=== PATIENT | female | born 1930 | race Caucasian/White ===

== ENCOUNTER 2017-07-18 15:05 | Inpatient (IN) | payer OTHER, BC ==
[2017-07-18] MEDS ORDERED: DEXAMETHASONE SOD PHOSPHATE 10 MG/1 ML VIAL ONE (15:27)
[2017-07-18] MEDS ORDERED: ALBUTEROL SO4 2.5/IPRATROPIUM 0.5 INH SOL 3 ML VIAL.NEB. NEB ONE (15:27)
--- NOTE | 2017-07-18 15:46 | PDOC ---
History of Present Illness - History of Present Illness Initial Comments: 07/18/17 15:52 The patient is a 86 year old female, with a significant past medical history of CKD, COPD, hypertension, anemia, CHF, who presents to the emergency department via EMS with, progressively worsening shortness of breath for approx. one day. The patient states the shortness of breath was worse today so she decided to go her PCP Dr. Amaral office for evaluation. However, she reports Dr. Puente advised the patient to come to the ED for further evaluation of the shortness of breath and notified EMS. She denies recent fevers, chills, cough, headache or dizziness. She denies recent nausea, vomit, diarrhea or constipation. She denies recent dysuria, frequency, urgency or hematuria. She denies recent chest pain. Allergies: See nursing notes. Primary Care Physician: Dr. Puente <Oren Velazquez - Last Filed: 07/18/17 16:28> - General History Source: Patient, Family Exam Limitations: No Limitations <Dariusz Werner - Last Filed: 07/18/17 17:57> <Ana Varma - Last Filed: 07/18/17 20:03> - General Chief Complaint: Shortness of Breath Stated Complaint: DIFFICULTY BREATHING Time Seen by Provider: 07/18/17 15:29 Past History <Oren Velazquez - Last Filed: 07/18/17 16:28> - Past Medical History COPD: Yes GI Disorders: Yes (LG HIATAL HERNIA) HTN: Yes Hypercholesterolemia: Yes Psychiatric Problems: Yes (DEPRESSION) - Surgical History Abdominal Surgery: Yes - Immunization History Immunization Up to Date: Yes - Suicide/Smoking/Psychosocial Hx Smoking Status: No Smoking History: Former smoker Have you smoked in the past 12 months: No Number of Cigarettes Smoked Daily: 0 If you are a former smoker, when did you quit?: 30 years ago Cigars Per Day: 0 Information on smoking cessation initiated: No 'Breaking Loose' booklet given: 11/02/13 Hx Alcohol Use: No Drug/Substance Use Hx: No Substance Use Type: None Hx Substance Use Treatment: No <Dariusz Werner - Last Filed: 07/18/17 17:57> <Ana Varma - Last Filed: 07/18/17 20:03> - Past Medical History Allergies/Adverse Reactions: Allergies Allergy/AdvReac Type Severity Reaction Status Date / Time erythromycin base Allergy Verified 03/03/16 02:18 [Erythromycin Base] prednisone AdvReac Verified 03/03/16 02:18 accromycin AdvReac Mild makes pt. Uncoded 03/03/16 02:18 hyper Home Medications: Ambulatory Orders Unobtainable [Unobtainable] 07/18/17 Review of Systems - Review of Systems Comments:: 07/18/17 15:54 GENERAL/CONSTITUTIONAL: No fever or chills. No weakness. HEAD, EYES, EARS, NOSE AND THROAT: No change in vision. No ear pain or discharge. No sore throat. CARDIOVASCULAR: (+) Shortness of breath. No chest pain. RESPIRATORY: No cough, wheezing, or hemoptysis. GASTROINTESTINAL: No nausea, vomiting, diarrhea or constipation. GENITOURINARY: No dysuria, frequency, or change in urination. MUSCULOSKELETAL: No joint or muscle swelling or pain. No neck or back pain. SKIN: No rash NEUROLOGIC: No headache, vertigo, loss of consciousness, or change in strength/ sensation. ENDOCRINE: No increased thirst. No abnormal weight change. HEMATOLOGIC/LYMPHATIC: No anemia, easy bleeding, or history of blood clots. ALLERGIC/IMMUNOLOGIC: No hives or skin allergy. <Oren Velazquez - Last Filed: 07/18/17 16:28> *Physical Exam - Vital Signs Last Vital Signs Temp Pulse Resp BP Pulse Ox 98.1 F 70 37 H 228/87 100 07/18/17 15:24 07/18/17 15:24 07/18/17 15:24 07/18/17 15:24 07/18/17 15:24 - Physical Exam Comments: 07/18/17 15:55 GENERAL: Awake, alert, and fully oriented. HEAD: No signs of trauma EYES: PERRLA, EOMI, sclera anicteric, conjunctiva clear ENT: Auricles normal inspection, hearing grossly normal, nares patent, oropharynx clear without exudates. Moist mucosa NECK: Normal ROM, supple, no lymphadenopathy, JVD, or masses LUNGS: (+) Tachypneic. (+) Decreased breath sounds at the bases bilaterally. (+ ) Speaking in few words. HEART: Regular rate and rhythm, normal S1 and S2, no murmurs, rubs or gallops ABDOMEN: Soft, nontender, normoactive bowel sounds. No guarding, no rebound. No masses EXTREMITIES: (+) 2+ Pedal edema bilaterally. Normal range of motion. No clubbing or cyanosis. No cords, erythema, or tenderness NEUROLOGICAL: Cranial nerves II through XII grossly intact. Normal speech. SKIN: Warm, Dry, normal turgor, no rashes or lesions noted. <Oren Velazquez - Last Filed: 07/18/17 16:28> - Vital Signs Last Vital Signs Temp Pulse Resp BP Pulse Ox 98.1 F 70 37 H 228/87 100 07/18/17 15:24 07/18/17 15:24 07/18/17 15:24 07/18/17 15:24 07/18/17 15:24 <Dariusz Werner - Last Filed: 07/18/17 17:57> - Vital Signs Last Vital Signs Temp Pulse Resp BP Pulse Ox 98.1 F 86 26 H 146/79 100 07/18/17 15:24 07/18/17 18:42 07/18/17 18:42 07/18/17 18:42 07/18/17 18:42 <Ana Varma - Last Filed: 07/18/17 20:03> Heart Score/ECG Review #1 ECG reviewed & interpreted by me at: 17:25 07/18/17 17:32 NSR 89, no std/eddie, normal axis, normal intervals, QTC 467 msec <Dariusz Werner - Last Filed: 07/18/17 17:57> ED Treatment Course - LABORATORY CBC & Chemistry Diagram: 07/18/17 15:51 07/18/17 15:51 - RADIOLOGY Radiograph Interpretation: 07/18/17 16:28 EXAM#: TYPE/EXAM: RESULT: [id number] RAD/CHEST X-RAY PORTABLE* HISTORY PROVIDED: Shortness of breath. A single frontal portable projection of the chest at 3:58 PM is submitted. The heart size is enlarged. The lung mcdowell are free of pulmonary infiltrates or pleural effusions. There are increased interstitial markings diffusely consistent with chronic lung disease. There is tortuosity and calcification of the thoracic aorta and degenerative arthritis of the thoracic spine. IMPRESSION: Cardiomegaly and chronic lung disease with no acute pathology or significant change since 2015. Reported By: Ike Horner MD <Oren Velazquez - Last Filed: 07/18/17 16:28> - LABORATORY CBC & Chemistry Diagram: 07/18/17 15:51 07/18/17 15:51 - RADIOLOGY Radiology Studies Ordered: Category Date Time Status CHEST X-RAY PORTABLE* [RAD] Stat Radiology 07/18/17 15:37 Ordered <Dariusz Werner - Last Filed: 07/18/17 17:57> - LABORATORY CBC & Chemistry Diagram: 07/18/17 15:51 07/18/17 15:51 - ADDITIONAL ORDERS Additional order review: Laboratory Results 07/18/17 07/18/17 07/18/17 17:40 17:19 16:09 PT with INR 11.10 INR 0.98 PTT (Actin FS) 25.6 L D Anticoagulation Therapy No Result Required. Puncture Site Right radial ABG pH 7.59 H D ABG pCO2 at Pt Temp 20.7 L D ABG pO2 at Pt Temp 244.0 H* D ABG HCO3 20.1 L ABG O2 Sat (Measured) 100.0 H* ABG O2 Content 11.3 L ABG Base Excess -0.9 Tha Test Positive Carboxyhemoglobin 1.9 Methemoglobin 1.0 O2 Delivery Device No Result Required. Oxygen Flow Rate 50 Vent Mode S/t Vent Rate No Result Required. Mechanical Rate 12/5 Pressure Support Vent No Result Required. Sodium Potassium Chloride Carbon Dioxide Anion Gap BUN Creatinine Creat Clearance w eGFR Random Glucose Calcium Phosphorus Magnesium Total Bilirubin AST ALT Alkaline Phosphatase Creatine Kinase Troponin I B-Natriuretic Peptide Total Protein Albumin Urine Color Ltyellow Urine Appearance Slcloudy Urine pH 7.0 D Ur Specific [place] 1.006 Urine Protein Negative Urine Glucose (UA) Negative Urine Ketones Negative Urine Blood 2+ H Urine Nitrite Negative Urine Bilirubin Negative Urine Urobilinogen Negative Ur Leukocyte Esterase 1+ H Urine WBC (Auto) 10 Urine RBC (Auto) 1 Ur Epithelial Cells Rare Urine Bacteria Rare Urine Yeast Rare 07/18/17 07/18/17 15:51 15:51 PT with INR 10.60 INR 0.94 PTT (Actin FS) Cancelled Anticoagulation Therapy Puncture Site ABG pH ABG pCO2 at Pt Temp ABG pO2 at Pt Temp ABG HCO3 ABG O2 Sat (Measured) ABG O2 Content ABG Base Excess Tha Test Carboxyhemoglobin Methemoglobin O2 Delivery Device Oxygen Flow Rate Vent Mode Vent Rate Mechanical Rate Pressure Support Vent Sodium 141 Potassium 4.3 Chloride 108 H Carbon Dioxide 23 Anion Gap 10 BUN 26 H Creatinine 1.3 H Creat Clearance w eGFR 38.84 Random Glucose 85 Calcium 8.5 Phosphorus 3.0 Magnesium 2.3 Total Bilirubin 0.4 D AST 16 ALT 19 Alkaline Phosphatase 86 Creatine Kinase 85 Troponin I < 0.02 B-Natriuretic Peptide 725.24 H Total Protein 6.5 Albumin 3.4 Urine Color Urine Appearance Urine pH Ur Specific [place] Urine Protein Urine Glucose (UA) Urine Ketones Urine Blood Urine Nitrite Urine Bilirubin Urine Urobilinogen Ur Leukocyte Esterase Urine WBC (Auto) Urine RBC (Auto) Ur Epithelial Cells Urine Bacteria Urine Yeast 07/18/17 15:51 RBC 3.09 L MCV 84.1 MCHC 32.3 RDW 15.5 MPV 8.4 Neutrophils % 86.0 H D Lymphocytes % 7.0 L D Monocytes % 3.9 Eosinophils % 2.6 Basophils % 0.5 - Medications Given in the ED: ED Medications Discontinued Medications Generic Name Dose Route Start Last Admin Trade Name Syd PRN Reason Stop Dose Admin Acetaminophen 1,000 mg 07/18/17 18:17 07/18/17 19:35 Ofirmev Injection - IVPB 07/18/17 18:18 1,000 mg ONCE ONE Administration Furosemide 40 mg 07/18/17 16:16 07/18/17 16:32 Lasix Injection - IVPB 07/18/17 16:17 40 mg ONCE ONE Administration Furosemide 40 mg 07/18/17 18:11 07/18/17 19:09 Lasix Injection - IVPB 07/18/17 18:12 Not Given ONCE ONE Furosemide 20 mg 07/18/17 18:18 07/18/17 18:48 Lasix Injection - IVPB 07/18/17 18:19 20 mg ONCE ONE Administration Ceftriaxone Sodium 1 gm/ 50 mls @ 100 mls/hr 07/18/17 17:10 07/18/17 18:51 Dextrose IVPB 07/18/17 17:39 100 mls/hr ONCE ONE Administration Morphine Sulfate 2 mg 07/18/17 19:07 07/18/17 19:35 Morphine Injection - IVPUSH 07/18/17 19:08 2 mg ONCE ONE Administration <Ana Varma - Last Filed: 07/18/17 20:03> Medical Decision Making - Critical Care Time Total Critical Care Time (minutes): 45 Critical Care Statement: The care of this patient involved high complexity decision making to prevent further life threatening deterioration of the patient 's condition and/or to evaluate & treat vital organ system(s) failure or risk of failure. - Medical Decision Making 07/18/17 15:41 A portion of this note was documented by scribe services under my direction. I have reviewed the details of the note, within reason, and agree with the documentation with the following case summary and management plan written by me. Patient treated in the ED. Patient arrives by ambulance to the emergency department. Nursing notes are reviewed and incorporated into the medical decision-making. Vital signs reviewed. Peripheral IV access obtained by the nurse, laboratory studies are drawn and sent, reviewed and interpreted by myself. Vital Signs Temp Pulse Resp BP Pulse Ox 98.1 F 70 37 H 228/87 100 07/18/17 15:24 07/18/17 15:24 07/18/17 15:24 07/18/17 15:24 07/18/17 15:24 86-year-old with past medical history of hypertension, hyperlipidemia, COPD, CHF on 20 mg of Lasix every other day presents with shortness of breath. According to the patient, the patient was having increased short of breath which was worse today. Patient denies any fevers or coughing or chest pain but reported that she's beginning a few sentences. Patient went to her doctor's office, Dr. Puente who called EMS for the patient. EMS had given the patient two combivents and 10 mg of dexamethasone. Patient was brought to the ED and seen by the ED 18. Patient is hypertensive and speaking in short sentences. Respiratory was paged for BiPAP. I suspect patient likely has CHF exacerbation and potentially COPD as well. Chest x-ray, labs, likely needs Lasix as well. Needs admission to the hospital. 07/18/17 17:57 CBC, BMP 07/18/17 15:51 07/18/17 15:51 CMP Sodium 141 mmol/L (136-145) 07/18/17 15:51 Potassium 4.3 mmol/L (3.5-5.1) 07/18/17 15:51 Chloride 108 mmol/L (98-107) H 07/18/17 15:51 Carbon Dioxide 23 mmol/L (21-32) 07/18/17 15:51 Anion Gap 10 (8-16) 07/18/17 15:51 BUN 26 mg/dL (7-18) H 07/18/17 15:51 Creatinine 1.3 mg/dL (0.55-1.02) H 07/18/17 15:51 Creat Clearance w eGFR 38.84 (>60) 07/18/17 15:51 Random Glucose 85 mg/dL (74-106) 07/18/17 15:51 Calcium 8.5 mg/dL (8.5-10.1) 07/18/17 15:51 Phosphorus 3.0 mg/dL (2.5-4.9) 07/18/17 15:51 Magnesium 2.3 mg/dL (1.8-2.4) 07/18/17 15:51 Total Bilirubin 0.4 mg/dL (0.2-1.0) D 07/18/17 15:51 AST 16 U/L (15-37) 07/18/17 15:51 ALT 19 U/L (12-78) 07/18/17 15:51 Alkaline Phosphatase 86 U/L (45-117) 07/18/17 15:51 Creatine Kinase 85 IU/L (26-192) 07/18/17 15:51 Troponin I < 0.02 ng/ml (0.00-0.05) 07/18/17 15:51 B-Natriuretic Peptide 725.24 pg/ml (5-450) H 07/18/17 15:51 Total Protein 6.5 g/dl (6.4-8.2) 07/18/17 15:51 Albumin 3.4 g/dl (3.4-5.0) 07/18/17 15:51 Urine Test Results Urine Color Ltyellow 07/18/17 16:09 Urine Appearance Slcloudy 07/18/17 16:09 Urine pH 7.0 (5.0-8.0) D 07/18/17 16:09 Ur Specific [place] 1.006 (1.001-1.035) 07/18/17 16:09 Urine Protein Negative (NEGATIVE) 07/18/17 16:09 Urine Glucose (UA) Negative (NEGATIVE) 07/18/17 16:09 Urine Ketones Negative (NEGATIVE) 07/18/17 16:09 Urine Blood 2+ (NEGATIVE) H 07/18/17 16:09 Urine Nitrite Negative (NEGATIVE) 07/18/17 16:09 Urine Bilirubin Negative (NEGATIVE) 07/18/17 16:09 Ur Leukocyte Esterase 1+ (NEGATIVE) H 07/18/17 16:09 Ur Epithelial Cells Rare /HPF (FEW) 07/18/17 16:09 Urine Bacteria Rare /hpf (NONE SEEN) 07/18/17 16:09 Labs reviewed. BNP elevated 725. Chest xray cardiomegaly but no acute findings. UA positive 1+ leuk. Treated with ceftriaxone. Pt placed on BiPap. Nitroglycerin drip ordered, and with BP improved, pt's symptoms improved. However, unable to wean from BiPap at the moment. Given that the patient is requiring the nitro drip and BiPap, patient will need to be admitted to ICU. Case discussed with Dr. Burrell who accepts patient to the ICU. Page placed out to DR. Puente, who requests DR. Nguyen. DR. Nguyen's service requests hospitalist admission. Will admit to [facility] hospitalist. Admission diagnosis: SOB, CHF <Dariusz Werner - Last Filed: 07/18/17 17:57> *DC/Admit/Observation/Transfer - Attestations Scribe Attestion: 07/18/17 15:58 Documentation prepared by Oren Velazquez, acting as ophthalmic medical technologist for Dariusz Werner MD. <Oren Velazquez - Last Filed: 07/18/17 16:28> - Discharge Dispostion Admit: Yes <Dariusz Werner - Last Filed: 07/18/17 17:57> <Ana Varma - Last Filed: 07/18/17 20:03> Diagnosis at time of Disposition: SOB (shortness of breath) CHF (congestive heart failure) Qualifiers: Heart failure type: unspecified Heart failure chronicity: acute Qualified Code( s): I50.9 - Heart failure, unspecified - Discharge Dispostion Condition at time of disposition: Stable
[2017-07-18 16:02] LABS: BASO % 0.5 % (0-2.0); EOS % 2.6 % (0-4.5); HEMOGLOBIN 8.4 GM/dL (10.7-15.3); MCH 27.1 pg (25.7-33.7); MCHC 32.3 g/dl (32.0-36.0); MEAN CELL VOLUME 84.1 fl (80-96); MEAN PLT VOLUME 8.4 fl (7.5-11.1); MONO % 3.9 % (3.8-10.2); PLATELET COUNT 408 K/MM3 (134-434); RBC 3.09 M/mm3 (3.60-5.2); RDW 15.5 % (11.6-15.6); WHITE BLOOD COUNT 8.7 K/mm3 (4.0-10.0)
[2017-07-18] MEDS ORDERED: FUROSEMIDE 100 MG/10 ML INJECTABLE VIAL IVPB ONE ×3 (16:16→18:18)
[2017-07-18] MEDS ORDERED: FUROSEMIDE 40 MG/4 ML INJECTABLE VIAL ONE (16:28)
[2017-07-18 16:31] LABS: URINE APPEARANCE SLCLOUDY; URINE BILIRUBIN NEGATIVE (NEGATIVE); URINE BLOOD 2+ (NEGATIVE); URINE COLOR LTYELLOW; URINE GLUCOSE (UA) NEGATIVE (NEGATIVE); URINE KETONE NEGATIVE (NEGATIVE); URINE NITRITE NEGATIVE (NEGATIVE); URINE PROTEIN NEGATIVE (NEGATIVE); URINE UROBILINOGEN NEGATIVE mg/dL (0.2-1.0)
[2017-07-18] MEDS ORDERED: NITROGLYCERIN 25MG/D5W 250ML 25 MG/250 ML ML IVPB ONE (16:32)
[2017-07-18 16:36] LABS: INR 0.94 (0.82-1.09); PROTHROMBIN TIME (PATIENT) 10.6 SEC (9.98-11.88)
[2017-07-18 16:40] LABS: URINE LEUK ESTERASE 1+ (NEGATIVE)
[2017-07-18 16:41] LABS: EPI CELLS RARE /HPF (FEW); URINE BACTERIA RARE /hpf (NONE SEEN); YEAST RARE
[2017-07-18 16:42] LABS: ALBUMIN 3.4 g/dl (3.4-5.0); ANION GAP 10 (8-16); BILIRUBIN,TOTAL 0.4 mg/dL (0.2-1.0); BLOOD UREA NITROGEN 26 mg/dL (7-18); CALCIUM 8.5 mg/dL (8.5-10.1); CHLORIDE 108 mmol/L (98-107); CO2 23 mmol/L (21-32); CREATININE 1.3 mg/dL (0.55-1.02); GLUCOSE,RANDOM 85 mg/dL (74-106); MAGNESIUM 2.3 mg/dL (1.8-2.4); POTASSIUM 4.3 mmol/L (3.5-5.1); SGOT/AST 16 U/L (15-37); SODIUM 141 mmol/L (136-145); TOT PROT 6.5 g/dl (6.4-8.2)
[2017-07-18] MEDS: NITROGLYCERIN 25MG/D5W 250ML 25 MG/250 ML ML IVPB SCH (16:42)
[2017-07-18 17:06] LABS: ALK PHOS 86 U/L (45-117); N-TERMINAL BNP 725.24 pg/ml (5-450); SGPT/ALT 19 U/L (12-78)
[2017-07-18] MEDS ORDERED: CEFTRIAXONE 1 GM in DEXTROSE 5%-WATER - 50 ML IVPB ONE (17:10)
[2017-07-18 17:30] LABS: ARTERIAL BLOOD GAS BASE EXCESS -0.9 meq/l (-2-2); ARTERIAL BLOOD GAS PCO2 20.7 mmHg (35-45); ARTERIAL BLOOD GAS pH 7.59 (7.35-7.45)
[2017-07-18 17:31] LABS: ALLENS TEST POSITIVE; CARBOXYHEMOGLOBIN 1.9 gm% (0.5-2.0)
[2017-07-18 18:13] LABS: INR 0.98 (0.82-1.09); PROTHROMBIN TIME (PATIENT) 11.1 SEC (9.98-11.88)
[2017-07-18 18:16] LABS: ACTIVATED PTT 25.6 SECONDS (26.9-34.4)
[2017-07-18] MEDS ORDERED: ACETAMINOPHEN 1000 MG/100 ML VIAL (NON FORMULARY) IVPB ONE (18:17)
--- NOTE | 2017-07-18 18:24 | HP ---
Admitting History and Physical - Primary Care Physician PCP: Jesus Puente - Admission Chief Complaint: sob History of Present Illness: HPI This is a 86 year old with pmhx of CKD, COPD, HTN, Anemia, CHF who presented ED with worsening shortness of breath over 1 days. She was sent in from her PCP office at his request for sob and EMS picked her up. In the ED she received 40mg IV lasix, levine placed, nitro gtt and placed on Bipap. Per ED note, she denies fever, chills, cough, PAGAN, dizziness, n/v. She is complaining of hunger. History Source: Patient, Family Member, Medical Record Limitations to Obtaining History: No Limitations - Past Medical History Cardiovascular: Yes: AFIB (paroxysmal ), CHF, HTN, Hyperlipdemia Pulmonary: Yes: COPD Gastrointestinal: Yes: Hiatal Hernia Renal/: Yes: Renal Failure, Renal Inusuff, Other (benign renal mass) Heme/Onc: Yes: Anemia Psych: Yes: Anxiety, Depression - Smoking History Smoking history: Former smoker Have you smoked in the past 12 months: No Aproximately how many cigarettes per day: 0 If you are a former smoker, when did you quit?: 30 years ago - Alcohol/Substance Use Hx Alcohol Use: No History of Substance Use: reports: None - Social History Usual Living Arrangement: Yes: With Child History of Recent Travel: No Home Medications - Allergies Allergies/Adverse Reactions: Allergies Allergy/AdvReac Type Severity Reaction Status Date / Time erythromycin base Allergy Verified 03/03/16 02:18 [Erythromycin Base] prednisone AdvReac Verified 03/03/16 02:18 accromycin AdvReac Mild makes pt. Uncoded 03/03/16 02:18 hyper - Home Medications Home Medications: Ambulatory Orders Unobtainable [Unobtainable] 07/18/17 Review of Systems - Review of Systems Constitutional: reports: No Symptoms Eyes: reports: No Symptoms HENT: reports: No Symptoms Neck: reports: No Symptoms Cardiovascular: reports: No Symptoms Respiratory: reports: SOB, SOB on Exertion Gastrointestinal: reports: No Symptoms Genitourinary: reports: No Symptoms Musculoskeletal: reports: No Symptoms Integumentary: reports: No Symptoms Neurological: reports: No Symptoms Endocrine: reports: No Symptoms Hematology/Lymphatic: reports: No Symptoms Psychiatric: reports: No Symptoms Physical Examination Vital Signs: Vital Signs Temperature 98.1 F 07/18/17 15:24 Pulse Rate 80 07/18/17 18:13 Respiratory Rate 24 07/18/17 18:13 Blood Pressure 140/78 07/18/17 18:13 O2 Sat by Pulse Oximetry (%) 99 07/18/17 18:13 Constitutional: Yes: Well Nourished Eyes: Yes: Conjunctiva Clear HENT: Yes: Atraumatic Neck: Yes: Supple Cardiovascular: Yes: Tachycardia, S1, S2 Respiratory: Yes: On BiPap, Tachypnea Gastrointestinal: Yes: Normal Bowel Sounds, Soft Renal/: Yes: Levine Present Musculoskeletal: Yes: WNL Edema: Yes Edema: LLE: 1+, RLE: 1+ Peripheral Pulses WNL: Yes Integumentary: Yes: WNL Neurological: Yes: Alert, Oriented, Cran Nerves II-XII Intact Psychiatric: Yes: Alert, Oriented Labs: CBC, BMP 07/18/17 15:51 07/18/17 15:51 Imaging - Results Chest X-ray: Report Reviewed, Image Reviewed (no pleural effusion, infiltrate, cxr c/w interstitial lung markings- chronic) Problem List - Problems (1) CHF (congestive heart failure) Code(s): I50.9 - HEART FAILURE, UNSPECIFIED Qualifiers: Heart failure type: unspecified Heart failure chronicity: acute Qualified Code(s): I50.9 - Heart failure, unspecified (2) SOB (shortness of breath) Code(s): R06.02 - SHORTNESS OF BREATH (3) Acute on chronic renal failure Code(s): N17.9 - ACUTE KIDNEY FAILURE, UNSPECIFIED; N18.9 - CHRONIC KIDNEY DISEASE, UNSPECIFIED (4) COPD (chronic obstructive pulmonary disease) Code(s): J44.9 - CHRONIC OBSTRUCTIVE PULMONARY DISEASE, UNSPECIFIED (5) HTN (hypertension) Code(s): I10 - ESSENTIAL (PRIMARY) HYPERTENSION Assessment/Plan Assessment: 86 year old female admitted with worsening sob Plan: 1. Acute hypoxic respiratory failure/Acute COPD exacerbation - Continue bipap - Continue nitro gtt - Lasix 40mg IV given in ED, additional 20mg IV now, caution pt having RLE cramping - ICU admission, monitor for intubation 2. Acute CHF, diastolic - Dose lasix as needed daily, home dose 20mg - Pt with RLE cramping after 40mg IV lasix - Previous echo shows low normal LVEF - BNP low here 3. HTN - Maintain nitro gtt for now - To confirm pt med list, pt says its on her person 4. RENITA - Cr appears around baseline - Hold fluids 5. UTI - Urine cx pending - Continue ceftriaxone 6. DVT - Lovenox sq Visit type - Emergency Visit Emergency Visit: Yes Care time: The patient presented to the Emergency Department on the above date and was hospitalized for further evaluation of their emergent condition. - New Patient This patient is new to me today: Yes Date on this admission: 07/18/17 - Critical Care Critical Care patient: No Hospitalist Screening - Colonoscopy Questionnaire Colonoscopy Questionnaire: Colonoscopy Questionnaire - Patient: 50 - 75 years old and never had a screening colonoscopy: Unknown History of colon or rectal polyps, or CA: Unknown History of IBD, Crohn's disease or UC: Unknown History of abdominal radiation therapy as a child: Unknown - Relative: 1 with colon or rectal CA, or polyps at age 60 or younger: Unknown Colon or rectal CA diagnosed at age 45 or younger: Unknown Multiple relatives with colon or rectal CA: Unknown - Outcome: Screening Result: Negative Screen
[2017-07-18] MEDS ORDERED: ACETAMINOPHEN 325 MG TABLET (FP) PO PRN (18:45)
[2017-07-18] MEDS ORDERED: morphine CARPU-JECT 2 MG/1 ML DISP.SYRIN IVPUSH ONE (19:07)
[2017-07-18] MEDS ORDERED: MORPHINE SULFATE 10 MG/1 ML *VIAL ONE (19:27)
[2017-07-18] MEDS ORDERED: CALCIUM GLUCONATE 10% - 1,000 MG/10 ML VIAL IVPB ONE ×2 (21:52→23:45)
--- NOTE | 2017-07-18 22:21 | CONSULT ---
Consult Consult Specialty:: Pulm/CCM Reason for Consultation:: Acute CHF exacerbation - History of Present Illness Chief Complaint: BLE cramping History of Present Illness: 86yow with PMHx HTN, CHF, HLD, COPD, CKD, Anemia who presented to PCP Dr Puente with c/o worsening SOB over about 2 days. PCP contacted EMS for transport to ED. She was initially treated for COPD exacerbation with decadron and nebs. In ED T-98.1, HR 70, RR 37, BP 228/87. C/f flash pulmonary edema. Started on Nitro drip, given Lasix 60mg total, placed on BiPAP and started empirically on Ceftriaxone. ABG on 50%, / 7.59, 30, 220. Labs notable for WBC 8.7, H/H 8.4/ 26, BUN/creat 26/1.3, BNP 725, Trop <0.02. CXR notable for bilat diffuse interstitial markings c/w chronic lung disease, no effusion. She denied cough, CP, fever, n/v/d, headache, vision changes. With Nitric drip BP down to 170-140' s/70's. She was transferred to ICU for further management. In ICU rec'd A+O x3, and c/o severe BLE cramping. HR 70 BP 144/70 on Nitric drip at 30mcg/min. O2 sat 100% on BiPAP 50%, 12/5. Ca gluc 1G given with relief of leg cramping. Able to wean off NIVV to NCO2 5L. Pt states that she is having difficulty remembering to take her meds and is working on getting help from her daughter to use a pillbox. - History Source History Provided By: Patient, Medical Record - Past Medical History Cardio/Vascular: Yes: AFIB (paroxysmal ), CHF, HTN, Hyperlipdemia Pulmonary: Yes: COPD Gastrointestinal: Yes: Hiatal Hernia Renal/: Yes: Renal Failure, Renal Inusuff, Other (benign renal mass) Psych: Yes: Anxiety, Depression - Alcohol/Substance Use Hx Alcohol Use: No History of Substance Use: reports: None - Smoking History Smoking history: Former smoker Have you smoked in the past 12 months: No Aproximately how many cigarettes per day: 0 If you are a former smoker, when did you quit?: 30 years ago - Social History History of Recent Travel: No Home Medications - Allergies Allergies/Adverse Reactions: Allergies Allergy/AdvReac Type Severity Reaction Status Date / Time erythromycin base Allergy Verified 03/03/16 02:18 [Erythromycin Base] prednisone AdvReac Verified 03/03/16 02:18 accromycin AdvReac Mild makes pt. Uncoded 03/03/16 02:18 hyper - Home Medications Home Medications: Ambulatory Orders Unobtainable [Unobtainable] 07/18/17 Family Disease History - Family Disease History Family History: Unremarkable Review of Systems - Review of Systems Constitutional: reports: No Symptoms Eyes: reports: No Symptoms HENT: reports: No Symptoms Neck: reports: No Symptoms Cardiovascular: reports: Shortness of Breath Respiratory: reports: SOB Gastrointestinal: reports: Constipation Genitourinary: reports: No Symptoms Musculoskeletal: reports: No Symptoms, Other (BLE edema) Integumentary: reports: No Symptoms Neurological: reports: No Symptoms Endocrine: reports: No Symptoms Hematology/Lymphatic: reports: No Symptoms Psychiatric: reports: No Symptoms Physical Exam Vital Signs: Vital Signs Temperature 98.1 F 07/18/17 15:24 Pulse Rate 76 07/18/17 21:03 Respiratory Rate 26 H 07/18/17 18:42 Blood Pressure 146/79 07/18/17 18:42 O2 Sat by Pulse Oximetry (%) 100 07/18/17 21:03 Constitutional: Yes: Well Nourished, No Distress, Anxious Eyes: Yes: WNL HENT: Yes: Atraumatic, Normocephalic Neck: Yes: Trachea Midline Cardiovascular: Yes: Regular Rate and Rhythm, S1, S2 Respiratory: Yes: CTA Bilaterally, On BiPap, Tachypnea Gastrointestinal: Yes: Normal Bowel Sounds, Soft Renal/: Yes: Stroud Present Musculoskeletal: Yes: WNL Extremities: Yes: WNL Edema: No Peripheral Pulses WNL: Yes Neurological: Yes: Alert, Oriented ...Motor Strength: WNL Psychiatric: Yes: Alert, Oriented Labs: CBC, BMP 07/18/17 15:51 CBC,CMP WBC 8.7 K/mm3 (4.0-10.0) D 07/18/17 15:51 RBC 3.09 M/mm3 (3.60-5.2) L 07/18/17 15:51 Hgb 8.4 GM/dL (10.7-15.3) L 07/18/17 15:51 Hct 26.0 % (32.4-45.2) L 07/18/17 15:51 MCV 84.1 fl (80-96) 07/18/17 15:51 MCH 27.1 pg (25.7-33.7) 07/18/17 15:51 MCHC 32.3 g/dl (32.0-36.0) 07/18/17 15:51 RDW 15.5 % (11.6-15.6) 07/18/17 15:51 Plt Count 408 K/MM3 (134-434) D 07/18/17 15:51 MPV 8.4 fl (7.5-11.1) 07/18/17 15:51 Neutrophils % 86.0 % (42.8-82.8) H D 07/18/17 15:51 Lymphocytes % 7.0 % (8-40) L D 07/18/17 15:51 Monocytes % 3.9 % (3.8-10.2) 07/18/17 15:51 Eosinophils % 2.6 % (0-4.5) 07/18/17 15:51 Basophils % 0.5 % (0-2.0) 07/18/17 15:51 Sodium 140 mmol/L (136-145) 07/18/17 21:50 Potassium 4.0 mmol/L (3.5-5.1) 07/18/17 21:50 Chloride 106 mmol/L (98-107) 07/18/17 21:50 Carbon Dioxide 20 mmol/L (21-32) L 07/18/17 21:50 Anion Gap 14 (8-16) 07/18/17 21:50 BUN 29 mg/dL (7-18) H 07/18/17 21:50 Creatinine 1.6 mg/dL (0.55-1.02) H 07/18/17 21:50 Creat Clearance w eGFR 30.56 (>60) 07/18/17 21:50 Random Glucose 148 mg/dL (74-106) H 07/18/17 21:50 Calcium 8.5 mg/dL (8.5-10.1) 07/18/17 21:50 Phosphorus 3.0 mg/dL (2.5-4.9) 07/18/17 15:51 Magnesium 2.3 mg/dL (1.8-2.4) 07/18/17 15:51 Total Bilirubin 0.3 mg/dL (0.2-1.0) D 07/18/17 21:50 AST 14 U/L (15-37) L 07/18/17 21:50 ALT 19 U/L (12-78) 07/18/17 21:50 Alkaline Phosphatase 88 U/L (45-117) 07/18/17 21:50 Creatine Kinase 85 IU/L (26-192) 07/18/17 15:51 Troponin I < 0.02 ng/ml (0.00-0.05) 07/18/17 15:51 B-Natriuretic Peptide 725.24 pg/ml (5-450) H 07/18/17 15:51 Total Protein 6.6 g/dl (6.4-8.2) 07/18/17 21:50 Albumin 3.3 g/dl (3.4-5.0) L 07/18/17 21:50 ABG Results ABG pH 7.59 (7.35-7.45) H D 07/18/17 17:19 ABG pCO2 at Pt Temp 20.7 mmHg (35-45) L D 07/18/17 17:19 ABG pO2 at Pt Temp 244.0 mmHg (68-100) H* D 07/18/17 17:19 ABG HCO3 20.1 meq/L (22-26) L 07/18/17 17:19 ABG O2 Sat (Measured) 100.0 % (90-98.9) H* 07/18/17 17:19 ABG O2 Content 11.3 % vol (15-22) L 07/18/17 17:19 ABG Base Excess -0.9 meq/l (-2-2) 07/18/17 17:19 Active Medications Acetaminophen (Tylenol -) 650 mg PO Q6H PRN PRN Reason: PAIN LEVEL 4 - 6 Chlorhexidine Gluconate (Hibiclens For Decolonization -) 1 applic TP HS NICOLE Enoxaparin Sodium (Lovenox -) 40 mg SQ DAILY NICO[facility] Nitroglycerin/Dextrose (Nitroglycerin 25mg/D5w 250ml) 25 mg in 250 mls @ 60 mls /hr IVPB TITR NICOLE PRN Reason: 100 MCG/MIN Last Titration: 07/18/17 17:28 Dose: 25 mcg/min, 15 mls/hr CEFTRIAXONE 1 G/50 ML PREMIX (Ceftriaxone 1 Gm-D5w Bag) 50 mls @ 100 mls/hr IVPB DAILY NICOLE Mupirocin (Bactroban Ointment (For Decolonization) -) 1 applic NS BID NICOLE Stop: 07/23/17 21:59 Microbiology Blood 3 p Urine 3 p Imaging - Results Chest X-ray: Report Reviewed Problem List - Problems (1) CHF (congestive heart failure) Code(s): I50.9 - HEART FAILURE, UNSPECIFIED Qualifiers: Heart failure type: unspecified Heart failure chronicity: acute Qualified Code(s): I50.9 - Heart failure, unspecified (2) SOB (shortness of breath) Code(s): R06.02 - SHORTNESS OF BREATH (3) Acute on chronic renal failure Code(s): N17.9 - ACUTE KIDNEY FAILURE, UNSPECIFIED; N18.9 - CHRONIC KIDNEY DISEASE, UNSPECIFIED (4) Anemia Code(s): D64.9 - ANEMIA, UNSPECIFIED Qualifiers: Anemia type: due to other cause Other causes of anemia: due to chronic kidney disease (5) Atypical pneumonia Code(s): J18.9 - PNEUMONIA, UNSPECIFIED ORGANISM (6) CKD (chronic kidney disease) Code(s): N18.9 - CHRONIC KIDNEY DISEASE, UNSPECIFIED (7) COPD (chronic obstructive pulmonary disease) Code(s): J44.9 - CHRONIC OBSTRUCTIVE PULMONARY DISEASE, UNSPECIFIED Assessment/Plan 6yow with PMHx HTN, CHF, HLD, COPD, CKD, Anemia who presented to ED with CHF exacerbation/flash pulmonary edema +/- COPD exacerbation possibly in setting on med non-compliance. No e/o infection/CAP--- Plan: -O2 support for O2 sat>92%; wean BiPAP to NC as carol -Cont Nitric drip for BP management; restart home antihypertensives when off BiPAP -Diuresis for net neg as carol -Monitor and replete electrolytes -Duonebs -Cont empiric CAP coverage with ceftriaxone -No wheeze, will hold steroids for now -TTE -DVT and GI prophlaxis -Bowel regimen -Pt states forgetful and needs assistance with organizing and remembering to take her home meds. Monica Wilburn, ACNP CC time 35mins
[2017-07-18 22:33] LABS: ALBUMIN 3.3 g/dl (3.4-5.0); ALK PHOS 88 U/L (45-117); ANION GAP 14 (8-16); BILIRUBIN,TOTAL 0.3 mg/dL (0.2-1.0); BLOOD UREA NITROGEN 29 mg/dL (7-18); CALCIUM 8.5 mg/dL (8.5-10.1); CHLORIDE 106 mmol/L (98-107); CO2 20 mmol/L (21-32); CREATININE 1.6 mg/dL (0.55-1.02); GLUCOSE,RANDOM 148 mg/dL (74-106); SGOT/AST 14 U/L (15-37); SGPT/ALT 19 U/L (12-78); SODIUM 140 mmol/L (136-145); TOT PROT 6.6 g/dl (6.4-8.2)
[2017-07-18] MEDS: MUPIROCIN 2% TOPICAL OINTMENT FOR DECOLONIZATION NS SCH (22:58)
[2017-07-18] MEDS: CHLORHEXIDINE GLUCONATE 4% CLEANSER FOR DECOLONIZATION TP SCH (22:58)
[2017-07-18 23:42] VITALS: BMI 25.7
[2017-07-18] MEDS: MELATONIN 5 MG TABLETS PO PRN (23:55)
[2017-07-19 00:05] LABS: MAGNESIUM 2.1 mg/dL (1.8-2.4); PHOSPHOROUS 4.6 mg/dL (2.5-4.9)
[2017-07-19 06:21] LABS: BASO % 0.3 % (0-2.0); HEMATOCRIT 24.1 % (32.4-45.2); HEMOGLOBIN 7.8 GM/dL (10.7-15.3); LYMPH % 5.6 % (8-40); MCHC 32.4 g/dl (32.0-36.0); MEAN CELL VOLUME 83.6 fl (80-96); MEAN PLT VOLUME 8.4 fl (7.5-11.1); MONO % 3.1 % (3.8-10.2); PLATELET COUNT 422 K/MM3 (134-434); RBC 2.88 M/mm3 (3.60-5.2); RDW 15.4 % (11.6-15.6); WHITE BLOOD COUNT 11.1 K/mm3 (4.0-10.0)
[2017-07-19 06:32] LABS: ALBUMIN 3.2 g/dl (3.4-5.0); ANION GAP 14 (8-16); BLOOD UREA NITROGEN 32 mg/dL (7-18); CALCIUM 9.3 mg/dL (8.5-10.1); CHLORIDE 106 mmol/L (98-107); CO2 19 mmol/L (21-32); CREATININE 1.7 mg/dL (0.55-1.02); GLUCOSE,RANDOM 151 mg/dL (74-106); POTASSIUM 4.6 mmol/L (3.5-5.1); SGOT/AST 14 U/L (15-37); SGPT/ALT 17 U/L (12-78); SODIUM 139 mmol/L (136-145)
[2017-07-19 06:36] LABS: ALK PHOS 86 U/L (45-117); BILIRUBIN,TOTAL 0.3 mg/dL (0.2-1.0); TOT PROT 6.4 g/dl (6.4-8.2)
--- NOTE | 2017-07-19 07:33 | PN ---
Progress Note, Physician History of Present Illness: 86 YOF with h/o CHF, COPD, former smoker, paroxysmal A-Fib, CKD, Anemia, HTN, HLD, anxiety, depression, and medication non-adherence who presented to ED after being sent via EMS by Dr. Puente for worsening SOB x2d. Tx initially for COPD exacerbation and then for presumed flash pulmonary edema. ED and hospital Course RR 37, BP 228/87, otherwise VS wnl Tx with DuoNebs and Decadron Started nitro ggt, given 60 of Lasix total, started BiPAP for flash pulmonary edema. Started empiric ceftriaxone after blood and urine cx sent ABG on 50% FiO2 at 12/5 on BiPAP was 7.59/20.7/244/20.1 H/H 8.4/26, BUN/Cr 26/1.3, BNP 725 and has been much higher in past [facility] records Otherwise labs wnl in ED including cardiac w/u CXR with bilateral diffuse interstitial markings, chronic lung dz, no effusions On nitro ggt BP down to 170-140's/70's Patient c/o severe BLE cramping in ICU Cramping relieved with 1 GM Ca gluconate Now on NC 24 HOUR EVENTS Renal function worsened after Lasix SUBJECTIVE 24 HOUR INTAKE & OUTPUT Intake: 729cc Output: 1050cc Net: -321cc BM: None reported LINES/TUBES/DRAINS PIV placed 07/18/17 Stroud placed 07/18/17 - Current Medication List Current Medications: Active Medications Acetaminophen (Tylenol -) 650 mg PO Q6H PRN PRN Reason: PAIN LEVEL 4 - 6 Albuterol/Ipratropium (Duoneb -) 1 amp NEB RQID NICOLE Chlorhexidine Gluconate (Hibiclens For Decolonization -) 1 applic TP HS [facility] Last Admin: 07/18/17 22:58 Dose: 1 applic Enoxaparin Sodium (Lovenox -) 40 mg SQ DAILY [facility] Nitroglycerin/Dextrose (Nitroglycerin 25mg/D5w 250ml) 25 mg in 250 mls @ 60 mls /hr IVPB TITR NICOLE PRN Reason: 100 MCG/MIN Last Titration: 07/19/17 02:09 Dose: 20 mcg/min, 12 mls/hr CEFTRIAXONE 1 G/50 ML PREMIX (Ceftriaxone 1 Gm-D5w Bag) 50 mls @ 100 mls/hr IVPB DAILY [facility] Melatonin (Melatonin) 5 mg PO HS PRN PRN Reason: INSOMNIA Last Admin: 07/18/17 23:55 Dose: 5 mg Mupirocin (Bactroban Ointment (For Decolonization) -) 1 applic NS BID NICOLE Stop: 07/23/17 21:59 Last Admin: 07/18/17 22:58 Dose: 1 applic - Objective Vital Signs: Vital Signs Temperature 98.0 F 07/19/17 06:00 Pulse Rate 87 07/19/17 06:00 Respiratory Rate 20 07/19/17 06:00 Blood Pressure 144/79 07/19/17 06:00 O2 Sat by Pulse Oximetry (%) 100 07/18/17 23:20 Constitutional: Yes: Well Nourished, No Distress, Calm, Other (very pleasant elderly female answering questions appropriately, forgetful) Eyes: Yes: WNL, Conjunctiva Clear, EOM Intact HENT: Yes: WNL, Atraumatic, Normocephalic Neck: Yes: WNL, Supple, Trachea Midline Cardiovascular: Yes: WNL, Regular Rate and Rhythm Respiratory: Yes: WNL, Regular, CTA Bilaterally, On Nasal O2 (3LPM). No: Diminished, Rhonchi, Stridor, Tachypnea, Wheezes Gastrointestinal: Yes: WNL, Normal Bowel Sounds, Soft Musculoskeletal: Yes: WNL Extremities: Yes: WNL. No: Calf Tenderness, Cold, Cyanosis, Erythema, Pallor Edema: No Peripheral Pulses: Left Doralis Pedis: 2+, Right Dorsalis Pedis: 2+ Integumentary: Yes: WNL. No: Rash, Skin Tear Neurological: Yes: WNL, Alert, Oriented (per baseline per daughter) ...Motor Strength: WNL Psychiatric: Yes: WNL, Alert Labs: CBC, BMP 07/19/17 05:55 INR, PTT INR 0.98 (0.82-1.09) 07/18/17 17:40 - ....Imaging Chest X-ray: Report Reviewed, Image Reviewed, Other (mild diffuse interstitial markings) Assessment/Plan 86 YOF with h/o CHF, mild COPD, former smoker, paroxysmal A-Fib, CKD, Anemia, HTN, HLD, anxiety, depression, and medication non-adherence who presented to ED after being sent via EMS by Dr. Puente for worsening SOB x2d. Tx initially for COPD exacerbation and then for presumed flash pulmonary edema. RESP #CHF exacerbation. Last echo was in 2016 and showed EF 59.2, mild TR, trace AR, otherwise normal. -Wean supplemental O2 as tolerated -TTE today -Diurese to keep net negative as tolerated #CAP, presumed. -Continue empiric ceftriaxone (day 2) -FU blood culture results -Trend CXR #COPD -DuoNebs -Steroids if patient becomes wheezy (hold for now) CV #HTN, chronic worsened. Non-adherent to medication regimen. -Continue nitro drip -Restart home antihypertensive meds now -Continue to monitor HEME #Anemia, chronic -Monitor H/H -Transfuse if necessary -Patient has Type & Screen in system this admission RENAL #CKD -Monitor BUN/Cr -Caution with diuretics PSYCHOSOCIAL #Medication non-adherence. Pt states forgetful and needs assistance with organizing and remembering to take her home meds. -Discuss with family -May consider dispo to [facility] or SNF F[facility] -Monitor and replete electrolytes -CHF diet when off BiPAP PPX DVT: Lovenox GI: Bowel regimen PT: When able DISPO Further ICU care
[2017-07-19] MEDS: ALBUTEROL SO4 2.5/IPRATROPIUM 0.5 INH SOL 3 ML VIAL.NEB. NEB SCH ×4 (08:35→21:00)
[2017-07-19 09:32] LABS: ARTERIAL BLOOD GAS PCO2 32.1 mmHg (35-45); ARTERIAL BLOOD GAS pH 7.44 (7.35-7.45)
[2017-07-19 09:33] LABS: ALLENS TEST POSITIVE; ARTERIAL BLOOD GAS BASE EXCESS -1.9 meq/l (-2-2)
[2017-07-19 10:00] LABS: INR 1.04 (0.82-1.09); PROTHROMBIN TIME (PATIENT) 11.7 SEC (9.98-11.88)
[2017-07-19] MEDS ORDERED: cefTRIAXone 1 GM/50 ML BAG (PRE-DOCKED) IVPB SCH (10:00)
[2017-07-19 10:03] LABS: ACTIVATED PTT 25.3 SECONDS (26.9-34.4)
--- NOTE | 2017-07-19 10:05 | EKG ---
Test Reason : Blood Pressure : / mmHG Vent. Rate : 089 BPM Atrial Rate : 089 BPM P-R Int : 154 ms QRS Dur : 068 ms QT Int : 384 ms P-R-T Axes : 055 005 042 degrees QTc Int : 467 ms SINUS RHYTHM WITH PREMATURE ATRIAL COMPLEXES WHEN COMPARED WITH ECG OF 03-MAR-2016 02:21, PREMATURE ATRIAL COMPLEXES ARE NOW PRESENT Confirmed by MARY MONTAÑO MD ([id number]) on 07/19/2017 10:05:18 AM Referred By: Confirmed By:MARY MONTAÑO MD
[2017-07-19] MEDS: CEFTRIAXONE 1 G/50 ML PREMIX 50 ML IVPB SCH (10:25)
[2017-07-19] MEDS: ENOXAPARIN NA (PORCINE) 40 MG/0.4 ML DISP.SYRIN SQ SCH ×2 (10:25→14:51)
[2017-07-19] MEDS: MUPIROCIN 2% TOPICAL OINTMENT FOR DECOLONIZATION NS SCH ×2 (10:25→22:02)
--- NOTE | 2017-07-19 10:32 | PN ---
Progress Note, Physician Chief Complaint: patient seen and examined slight tachycpneic when she talks says that her breathing slightly better on nasal canula on nitro drip - Current Medication List Current Medications: Active Medications Acetaminophen (Tylenol -) 650 mg PO Q6H PRN PRN Reason: PAIN LEVEL 4 - 6 Albuterol/Ipratropium (Duoneb -) 1 amp NEB RQID [facility] Last Admin: 07/19/17 08:35 Dose: 1 amp Chlorhexidine Gluconate (Hibiclens For Decolonization -) 1 applic TP HS [facility] Last Admin: 07/18/17 22:58 Dose: 1 applic Enoxaparin Sodium (Lovenox -) 40 mg SQ DAILY [facility] Last Admin: 07/19/17 10:25 Dose: 40 mg Nitroglycerin/Dextrose (Nitroglycerin 25mg/D5w 250ml) 25 mg in 250 mls @ 60 mls /hr IVPB TITR [facility] PRN Reason: 100 MCG/MIN Last Titration: 07/19/17 02:09 Dose: 20 mcg/min, 12 mls/hr CEFTRIAXONE 1 G/50 ML PREMIX (Ceftriaxone 1 Gm-D5w Bag) 50 mls @ 100 mls/hr IVPB DAILY [facility] Last Admin: 07/19/17 10:25 Dose: 100 mls/hr Melatonin (Melatonin) 5 mg PO HS PRN PRN Reason: INSOMNIA Last Admin: 07/18/17 23:55 Dose: 5 mg Mupirocin (Bactroban Ointment (For Decolonization) -) 1 applic NS BID [facility] Stop: 07/23/17 21:59 Last Admin: 07/19/17 10:25 Dose: 1 applic - Objective Vital Signs: Vital Signs Temperature 98.0 F 07/19/17 06:00 Pulse Rate 67 07/19/17 08:20 Respiratory Rate 20 07/19/17 08:00 Blood Pressure 125/54 07/19/17 08:00 O2 Sat by Pulse Oximetry (%) 100 07/19/17 08:20 Constitutional: Yes: Calm Cardiovascular: Yes: Regular Rate and Rhythm, S1, S2 Respiratory: Yes: Diminished, On Nasal O2 Gastrointestinal: Yes: Normal Bowel Sounds, Soft Neurological: Yes: Alert, Oriented Labs: CBC, BMP 07/19/17 05:55 07/19/17 05:55 INR, PTT INR 1.04 (0.82-1.09) 07/19/17 09:15 Problem List - Problems (1) CHF (congestive heart failure) Assessment/Plan: cardiology evaluation currently nitro drip will change to po nitrates if ok with cardiology strict I/O daily weights Code(s): I50.9 - HEART FAILURE, UNSPECIFIED Qualifiers: Heart failure type: unspecified Heart failure chronicity: acute Qualified Code(s): I50.9 - Heart failure, unspecified (2) SOB (shortness of breath) Assessment/Plan: nitro drip got 60mg of lasix in ER- now breathing is better did not need to use bipap chest ct given increase lactic acid and wbc count cultures pending pulm eval Code(s): R06.02 - SHORTNESS OF BREATH (3) Anemia Assessment/Plan: repeat cbc, stool ocuult iron panel GI eval/heme eval Code(s): D64.9 - ANEMIA, UNSPECIFIED Qualifiers: Anemia type: due to other cause Other causes of anemia: due to chronic kidney disease (4) Acute on chronic renal failure Assessment/Plan: renal sono renal eval Code(s): N17.9 - ACUTE KIDNEY FAILURE, UNSPECIFIED; N18.9 - CHRONIC KIDNEY DISEASE, UNSPECIFIED
--- NOTE | 2017-07-19 12:01 | PN ---
Teaching Attending Note Name of Resident: Sonia Hutson ATTENDING PHYSICIAN STATEMENT I saw and evaluated the patient. I reviewed the resident's note and discussed the case with the resident. I agree with the resident's findings and plan as documented. SUBJECTIVE: Patient seen and examined in the ICU. NIPPV overnight. Now mildly tachypneic on NC O2. Remains on IV NTG. Reports breathing is better. Daughter reports that she did not have her ARB and Anoro for almost 2 weeks. Intake & Output 07/16/17 07/17/17 07/18/17 07/19/17 23:59 23:59 23:59 23:59 Intake Total 345 384 Output Total 600 450 Balance -255 -66 Weight 132 lb 1 oz 132 lb 1 oz Last Vital Signs Temp Pulse Resp BP Pulse Ox 97.6 F 87 20 124/71 99 07/19/17 10:00 07/19/17 10:00 07/19/17 10:00 07/19/17 10:00 07/19/17 11:00 Active Medications Acetaminophen (Tylenol -) 650 mg PO Q6H PRN PRN Reason: PAIN LEVEL 4 - 6 Albuterol/Ipratropium (Duoneb -) 1 amp NEB RQID [facility] Last Admin: 07/19/17 08:35 Dose: 1 amp Chlorhexidine Gluconate (Hibiclens For Decolonization -) 1 applic TP HS [facility] Last Admin: 07/18/17 22:58 Dose: 1 applic Enoxaparin Sodium (Lovenox -) 40 mg SQ DAILY [facility] Nitroglycerin/Dextrose (Nitroglycerin 25mg/D5w 250ml) 25 mg in 250 mls @ 60 mls /hr IVPB TITR NICOLE PRN Reason: 100 MCG/MIN Last Titration: 07/19/17 02:09 Dose: 20 mcg/min, 12 mls/hr CEFTRIAXONE 1 G/50 ML PREMIX (Ceftriaxone 1 Gm-D5w Bag) 50 mls @ 100 mls/hr IVPB DAILY [facility] Last Admin: 07/19/17 10:25 Dose: 100 mls/hr Melatonin (Melatonin) 5 mg PO HS PRN PRN Reason: INSOMNIA Last Admin: 07/18/17 23:55 Dose: 5 mg Mupirocin (Bactroban Ointment (For Decolonization) -) 1 applic NS BID [facility] Stop: 03/06/18 21:59 Last Admin: 07/19/17 10:25 Dose: 1 applic Constitutional: Yes: Well Nourished, Mildly tachypneic at rest Eyes: Yes: WNL HENT: Yes: Atraumatic, Normocephalic Neck: Yes: Trachea Midline Cardiovascular: Yes: Regular Rate and Rhythm, S1, S2 Respiratory: Yes: Few basilar rhonchi, no wheeze Gastrointestinal: Yes: Normal Bowel Sounds, Soft Renal/: Yes: [place] Present Musculoskeletal: Yes: WNL Extremities: Yes: WNL Edema: No Peripheral Pulses WNL: Yes Neurological: Yes: Alert, Oriented ...Motor Strength: WNL Psychiatric: Yes: Alert, Oriented Labs: Laboratory Results - last 24 hr 07/18/17 07/18/17 07/18/17 15:51 15:51 15:51 WBC 8.7 D RBC 3.09 L Hgb 8.4 L Hct 26.0 L MCV 84.1 MCH 27.1 MCHC 32.3 RDW 15.5 Plt Count 408 D MPV 8.4 Neutrophils % 86.0 H D Lymphocytes % 7.0 L D Monocytes % 3.9 Eosinophils % 2.6 Basophils % 0.5 PT with INR 10.60 INR 0.94 PTT (Actin FS) Cancelled Anticoagulation Therapy Puncture Site ABG pH ABG pCO2 at Pt Temp ABG pO2 at Pt Temp ABG HCO3 ABG O2 Sat (Measured) ABG O2 Content ABG Base Excess Tha Test Carboxyhemoglobin Methemoglobin O2 Delivery Device Oxygen Flow Rate Vent Mode Vent Rate Mechanical Rate PEEP Pressure Support Vent Sodium 141 Potassium 4.3 Chloride 108 H Carbon Dioxide 23 Anion Gap 10 BUN 26 H Creatinine 1.3 H Creat Clearance w eGFR 38.84 Random Glucose 85 Lactic Acid Calcium 8.5 Phosphorus 3.0 Magnesium 2.3 Total Bilirubin 0.4 D AST 16 ALT 19 Alkaline Phosphatase 86 Creatine Kinase 85 Creatine Kinase Index CK-MB (CK-2) Troponin I < 0.02 B-Natriuretic Peptide 725.24 H Total Protein 6.5 Albumin 3.4 Urine Color Urine Appearance Urine pH Ur Specific [place] Urine Protein Urine Glucose (UA) Urine Ketones Urine Blood Urine Nitrite Urine Bilirubin Urine Urobilinogen Ur Leukocyte Esterase Urine WBC (Auto) Urine RBC (Auto) Ur Epithelial Cells Urine Bacteria Urine Yeast 07/18/17 07/18/17 07/18/17 16:09 17:19 17:40 WBC RBC Hgb Hct MCV MCH MCHC RDW Plt Count MPV Neutrophils % Lymphocytes % Monocytes % Eosinophils % Basophils % PT with INR 11.10 INR 0.98 PTT (Actin FS) 25.6 L D Anticoagulation Therapy No Result Required. Puncture Site Right radial ABG pH 7.59 H D ABG pCO2 at Pt Temp 20.7 L D ABG pO2 at Pt Temp 244.0 H* D ABG HCO3 20.1 L ABG O2 Sat (Measured) 100.0 H* ABG O2 Content 11.3 L ABG Base Excess -0.9 Tha Test Positive Carboxyhemoglobin 1.9 Methemoglobin 1.0 O2 Delivery Device No Result Required. Oxygen Flow Rate 50 Vent Mode S/t Vent Rate No Result Required. Mechanical Rate 12/5 PEEP Pressure Support Vent No Result Required. Sodium Potassium Chloride Carbon Dioxide Anion Gap BUN Creatinine Creat Clearance w eGFR Random Glucose Lactic Acid Calcium Phosphorus Magnesium Total Bilirubin AST ALT Alkaline Phosphatase Creatine Kinase Creatine Kinase Index CK-MB (CK-2) Troponin I B-Natriuretic Peptide Total Protein Albumin Urine Color Ltyellow Urine Appearance Slcloudy Urine pH 7.0 D Ur Specific [place]light 1.006 Urine Protein Negative Urine Glucose (UA) Negative Urine Ketones Negative Urine Blood 2+ H Urine Nitrite Negative Urine Bilirubin Negative Urine Urobilinogen Negative Ur Leukocyte Esterase 1+ H Urine WBC (Auto) 10 Urine RBC (Auto) 1 Ur Epithelial Cells Rare Urine Bacteria Rare Urine Yeast Rare 07/18/17 07/18/17 07/19/17 21:50 21:50 05:55 WBC 11.1 H RBC 2.88 L Hgb 7.8 L Hct 24.1 L MCV 83.6 MCH 27.0 MCHC 32.4 RDW 15.4 Plt Count 422 MPV 8.4 Neutrophils % 91.0 H Lymphocytes % 5.6 L Monocytes % 3.1 L Eosinophils % 0.0 D Basophils % 0.3 PT with INR INR PTT (Actin FS) Anticoagulation Therapy Puncture Site ABG pH ABG pCO2 at Pt Temp ABG pO2 at Pt Temp ABG HCO3 ABG O2 Sat (Measured) ABG O2 Content ABG Base Excess Tha Test Carboxyhemoglobin Methemoglobin O2 Delivery Device Oxygen Flow Rate Vent Mode Vent Rate Mechanical Rate PEEP Pressure Support Vent Sodium 140 Potassium 4.0 Chloride 106 Carbon Dioxide 20 L Anion Gap 14 BUN 29 H Creatinine 1.6 H Creat Clearance w eGFR 30.56 Random Glucose 148 H Lactic Acid Calcium 8.5 Phosphorus 4.6 Magnesium 2.1 Total Bilirubin 0.3 D AST 14 L ALT 19 Alkaline Phosphatase 88 Creatine Kinase Creatine Kinase Index CK-MB (CK-2) Troponin I B-Natriuretic Peptide Total Protein 6.6 Albumin 3.3 L Urine Color Urine Appearance Urine pH Ur Specific [place] Urine Protein Urine Glucose (UA) Urine Ketones Urine Blood Urine Nitrite Urine Bilirubin Urine Urobilinogen Ur Leukocyte Esterase Urine WBC (Auto) Urine RBC (Auto) Ur Epithelial Cells Urine Bacteria Urine Yeast 07/19/17 07/19/17 07/19/17 05:55 09:10 09:15 WBC RBC Hgb Hct MCV MCH MCHC RDW Plt Count MPV Neutrophils % Lymphocytes % Monocytes % Eosinophils % Basophils % PT with INR INR PTT (Actin FS) Anticoagulation Therapy No Result Required. Puncture Site Right radial ABG pH 7.44 ABG pCO2 at Pt Temp 32.1 L D ABG pO2 at Pt Temp 106.0 H D ABG HCO3 21.4 L ABG O2 Sat (Measured) ABG O2 Content 10.2 L ABG Base Excess -1.9 Tha Test Positive Carboxyhemoglobin Methemoglobin O2 Delivery Device Nasal cannula Oxygen Flow Rate 3l Vent Mode No Result Required. Vent Rate ` Mechanical Rate No PEEP 0.0 Pressure Support Vent No Result Required. Sodium 139 Potassium 4.6 Chloride 106 Carbon Dioxide 19 L Anion Gap 14 BUN 32 H Creatinine 1.7 H Creat Clearance w eGFR 28.50 Random Glucose 151 H Lactic Acid 2.6 H* Calcium 9.3 Phosphorus Magnesium Total Bilirubin 0.3 AST 14 L ALT 17 Alkaline Phosphatase 86 Creatine Kinase 136 Creatine Kinase Index CK-MB (CK-2) Troponin I 0.02 B-Natriuretic Peptide Total Protein 6.4 Albumin 3.2 L Urine Color Urine Appearance Urine pH Ur Specific [place] Urine Protein Urine Glucose (UA) Urine Ketones Urine Blood Urine Nitrite Urine Bilirubin Urine Urobilinogen Ur Leukocyte Esterase Urine WBC (Auto) Urine RBC (Auto) Ur Epithelial Cells Urine Bacteria Urine Yeast 07/19/17 07/19/17 09:15 09:30 WBC RBC Hgb Hct MCV MCH MCHC RDW Plt Count MPV Neutrophils % Lymphocytes % Monocytes % Eosinophils % Basophils % PT with INR 11.70 INR 1.04 PTT (Actin FS) 25.3 L Anticoagulation Therapy Puncture Site ABG pH ABG pCO2 at Pt Temp ABG pO2 at Pt Temp ABG HCO3 ABG O2 Sat (Measured) ABG O2 Content ABG Base Excess Tha Test Carboxyhemoglobin Methemoglobin O2 Delivery Device Oxygen Flow Rate Vent Mode Vent Rate Mechanical Rate PEEP Pressure Support Vent Sodium Potassium Chloride Carbon Dioxide Anion Gap BUN Creatinine Creat Clearance w eGFR Random Glucose Lactic Acid Calcium Phosphorus Magnesium Total Bilirubin AST ALT Alkaline Phosphatase Creatine Kinase 176 Creatine Kinase Index 1.6 CK-MB (CK-2) 2.836 Troponin I 0.02 B-Natriuretic Peptide Total Protein Albumin Urine Color Urine Appearance Urine pH Ur Specific [place] Urine Protein Urine Glucose (UA) Urine Ketones Urine Blood Urine Nitrite Urine Bilirubin Urine Urobilinogen Ur Leukocyte Esterase Urine WBC (Auto) Urine RBC (Auto) Ur Epithelial Cells Urine Bacteria Urine Yeast Problem List - Problems (1) CHF (congestive heart failure) Code(s): I50.9 - HEART FAILURE, UNSPECIFIED Qualifiers: Heart failure type: unspecified Heart failure chronicity: acute Qualified Code(s): I50.9 - Heart failure, unspecified (2) SOB (shortness of breath) Code(s): R06.02 - SHORTNESS OF BREATH (3) Acute on chronic renal failure Code(s): N17.9 - ACUTE KIDNEY FAILURE, UNSPECIFIED; N18.9 - CHRONIC KIDNEY DISEASE, UNSPECIFIED (4) Anemia Code(s): D64.9 - ANEMIA, UNSPECIFIED Qualifiers: Anemia type: due to other cause Other causes of anemia: due to chronic kidney disease (5) Atypical pneumonia Code(s): J18.9 - PNEUMONIA, UNSPECIFIED ORGANISM (6) CKD (chronic kidney disease) Code(s): N18.9 - CHRONIC KIDNEY DISEASE, UNSPECIFIED (7) COPD (chronic obstructive pulmonary disease) Code(s): J44.9 - CHRONIC OBSTRUCTIVE PULMONARY DISEASE, UNSPECIFIED Assessment/Plan 86 F, HTN, CHF, HLD, COPD, CKD, Anemia who presented to ED with CHF exacerbation / flash pulmonary edema / low clinical suspicion of infection/COPD exacerbation. Recent medication non-compliance. Plan: -O2 support for O2 sat>92% -NIPPV as needed -Restart home meds -Wean NTG drip -Diuresis for net negative as tolerated -Monitor and replete electrolytes -Duonebs -Low threshold to D/C ABX once cultures are negative -Monitor off systemic steroids for now -TTE -DVT and GI prophylaxis Dr Rosa Critical care time spent in reviewing chart, evaluating patient and formulating plan - 36 minutes.
--- NOTE | 2017-07-19 12:34 | CON.CARD ---
Consult Consult Specialty:: Cardiology Referred by:: Jesus Puente MD Reason for Consultation:: Dyspnea - History of Present Illness Chief Complaint: Dyspnea History of Present Illness: 86 YOF with h/o CHF, COPD, former smoker, diastolic dysfunction, CKD, Anemia, HTN, HLD, anxiety, depression, and medication non-adherence (ran out of losartan last 2 weeks) presented to ED after being sent via EMS by Dr. Puente for worsening SOB x2d and peripheral edema. BP elevated, treated for COPD flare , CHF and hypertensive urgency, diuresed over 1 L with resolution of symptoms. - History Source History Provided By: Patient Limitations to Obtaining History: No Limitations - Past Medical History Cardio/Vascular: Yes: AFIB (paroxysmal ), CHF, HTN, Hyperlipdemia Pulmonary: Yes: COPD Gastrointestinal: Yes: Hiatal Hernia Renal/: Yes: Renal Failure, Renal Inusuff, Other (benign renal mass) ...: No Psych: Yes: Anxiety, Depression - Alcohol/Substance Use Hx Alcohol Use: No History of Substance Use: reports: None - Smoking History Smoking history: Former smoker Have you smoked in the past 12 months: No Aproximately how many cigarettes per day: 0 If you are a former smoker, when did you quit?: 30 years ago - Social History History of Recent Travel: No Home Medications - Allergies Allergies/Adverse Reactions: Allergies Allergy/AdvReac Type Severity Reaction Status Date / Time erythromycin base Allergy Verified 03/03/16 02:18 [Erythromycin Base] prednisone AdvReac Verified 03/03/16 02:18 accromycin AdvReac Mild makes pt. Uncoded 03/03/16 02:18 hyper - Home Medications Home Medications: Ambulatory Orders Unobtainable [Unobtainable] 07/18/17 Review of Systems - Review of Systems Respiratory: reports: SOB Vital Signs: Vital Signs Temperature 97.6 F 07/19/17 10:00 Pulse Rate 87 07/19/17 10:00 Respiratory Rate 20 07/19/17 10:00 Blood Pressure 124/71 07/19/17 10:00 O2 Sat by Pulse Oximetry (%) 100 07/19/17 12:15 Constitutional: Yes: No Distress, Calm Neck: Yes: Supple Respiratory: Yes: Regular, Diminished, On Nasal O2 Gastrointestinal: Yes: Normal Bowel Sounds, Soft Cardiovascular: Yes: Regular Rate and Rhythm JVD: No Carotid Bruit: No Heart Sounds: Yes: S1, S2 Murmur: Yes: Systolic Murmur, Grade 1 Edema: No - Other Data Labs, Other Data: CBC, BMP 07/19/17 05:55 07/19/17 05:55 INR, PTT INR 1.04 (0.82-1.09) 07/19/17 09:15 Troponin, BNP 07/18/17 07/19/17 07/19/17 15:51 05:55 09:30 Troponin I < 0.02 0.02 0.02 B-Natriuretic Peptide 725.24 H Troponin, BNP 07/18/17 07/19/17 07/19/17 15:51 05:55 09:30 Troponin I < 0.02 0.02 0.02 B-Natriuretic Peptide 725.24 H NSR @ 89 PAC Ejection Fraction %: LVEF > or = 40 % Imaging - Results Chest X-ray: Report Reviewed (Improving CHF) Problem List - Problems (1) CHF (congestive heart failure) Code(s): I50.9 - HEART FAILURE, UNSPECIFIED Qualifiers: Heart failure type: diastolic Heart failure chronicity: acute on chronic Qualified Code(s): I50.33 - Acute on chronic diastolic (congestive) heart failure (2) SOB (shortness of breath) Code(s): R06.02 - SHORTNESS OF BREATH (3) Anemia Code(s): D64.9 - ANEMIA, UNSPECIFIED Qualifiers: Anemia type: due to other cause Other causes of anemia: due to chronic kidney disease (4) CKD (chronic kidney disease) Code(s): N18.9 - CHRONIC KIDNEY DISEASE, UNSPECIFIED Qualifiers: Chronic kidney disease stage: stage 3 (moderate) Qualified Code(s): N18.3 - Chronic kidney disease, stage 3 (moderate) (5) COPD (chronic obstructive pulmonary disease) Code(s): J44.9 - CHRONIC OBSTRUCTIVE PULMONARY DISEASE, UNSPECIFIED Qualifiers: COPD type: unspecified COPD Qualified Code(s): J44.9 - Chronic obstructive pulmonary disease, unspecified (6) Hypertensive emergency Code(s): I10 - ESSENTIAL (PRIMARY) HYPERTENSION Assessment/Plan 07/19/2017 Normal biventricular size and fxn, mild MR, TR, AR, abnl LV compliance 10/26/2016 No ischemia, LVEF 66% A 1. Acute hypoxoc respiratory failure referable to 2. Acute on chronic diastolic failure in context of medication noncompliance ( ran out of losartan for 2 weeks) improving 3. COPD not in flare 4. CKD 5. Anemia 6. HTN/HCVD 7. Hyperlipidemia P:1. Diuresis with monitor diuretic response, renal fxn and electrolytes 2. Continue carvedilol 3.125 bid, Lipitor 20 qhs, ASA 81 qd, losartan 50 qd, wean off NTG as you are 3. BD, O2 as needed 4. DVT and GI prophylaxis 5. Thank you for consultative opportunity, patient to follow-up with Dr. Cm Jefferson at [facility] upon d/c.
[2017-07-19 12:46] LABS: BASO % 0.8 % (0-2.0); HEMATOCRIT 23.1 % (32.4-45.2); HEMOGLOBIN 7.4 GM/dL (10.7-15.3); LYMPH % 4.3 % (8-40); MCH 26.9 pg (25.7-33.7); MCHC 31.9 g/dl (32.0-36.0); MEAN CELL VOLUME 84.3 fl (80-96); MONO % 8.1 % (3.8-10.2); NEUT % 86.8 % (42.8-82.8); PLATELET COUNT 397 K/MM3 (134-434); RBC 2.74 M/mm3 (3.60-5.2); RDW 15.3 % (11.6-15.6); WHITE BLOOD COUNT 12.1 K/mm3 (4.0-10.0)
[2017-07-19] MEDS: LOSARTAN POTASSIUM 50 MG TABLET (FP) PO SCH (14:51)
[2017-07-19] MEDS: CARVEDILOL 3.125 MG TABLET (FP) PO SCH ×2 (14:51→22:02)
[2017-07-19] MEDS: NITROGLYCERIN 25MG/D5W 250ML 25 MG/250 ML ML IVPB SCH (16:48)
--- NOTE | 2017-07-19 17:46 | CONSULT ---
Consult Consult Specialty:: Nephrology Reason for Consultation:: CKD - History of Present Illness Chief Complaint: shortness of breath History of Present Illness: Pt is an 86 year old female with pmhx of CKD, COPD, CHF, HTN, and anemia who presents to the ER for worsening shortness of breath. She initially went to her PMD who sent her to the hospital. She was started on lasix and says she is feeling better. She does have CKD and her baseline nutrition worker is about 1.7. She has not been compliant with her salt restrictions. She is on lasix 40 mg daily. She has not taken her ARB in 2 weeks as she says she ran out. She does complain of lower extremity edema. She denies chest pain or palpitations. - History Source History Provided By: Patient, Medical Record - Past Medical History Cardio/Vascular: Yes: AFIB (paroxysmal ), CHF, HTN, Hyperlipdemia Pulmonary: Yes: COPD Gastrointestinal: Yes: Hiatal Hernia Renal/: Yes: Renal Failure, Renal Inusuff, Other (benign renal mass) ...: No Psych: Yes: Anxiety, Depression - Alcohol/Substance Use Hx Alcohol Use: No History of Substance Use: reports: None - Smoking History Smoking history: Former smoker Have you smoked in the past 12 months: No Aproximately how many cigarettes per day: 0 If you are a former smoker, when did you quit?: 30 years ago - Social History History of Recent Travel: No Home Medications - Allergies Allergies/Adverse Reactions: Allergies Allergy/AdvReac Type Severity Reaction Status Date / Time erythromycin base Allergy Verified 03/03/16 02:18 [Erythromycin Base] prednisone AdvReac Verified 03/03/16 02:18 accromycin AdvReac Mild makes pt. Uncoded 03/03/16 02:18 hyper - Home Medications Home Medications: Ambulatory Orders Unobtainable [Unobtainable] 07/18/17 Family Disease History - Family Disease History Family History: Denies Review of Systems - Review of Systems Constitutional: reports: Malaise Eyes: reports: No Symptoms HENT: reports: No Symptoms Neck: reports: No Symptoms Cardiovascular: reports: Edema, Shortness of Breath. denies: Chest Pain Respiratory: reports: Cough, SOB, SOB on Exertion Genitourinary: reports: No Symptoms Musculoskeletal: reports: No Symptoms Integumentary: reports: No Symptoms Neurological: reports: No Symptoms Endocrine: reports: No Symptoms Hematology/Lymphatic: reports: No Symptoms Psychiatric: reports: No Symptoms Physical Exam Vital Signs: Vital Signs Temperature 98.1 F 07/19/17 14:00 Pulse Rate 91 H 07/19/17 16:00 Respiratory Rate 21 07/19/17 16:00 Blood Pressure 139/68 07/19/17 16:00 O2 Sat by Pulse Oximetry (%) 98 07/19/17 17:08 Constitutional: Yes: Calm Eyes: Yes: Conjunctiva Clear HENT: Yes: Atraumatic Neck: Yes: Supple Cardiovascular: Yes: S1, S2 Respiratory: Yes: On Nasal O2, Rhonchi Gastrointestinal: Yes: Soft, Abdomen, Obese Renal/: Yes: [place] Present Musculoskeletal: Yes: WNL Edema: Yes Neurological: Yes: Oriented Psychiatric: Yes: Oriented Labs: CBC, BMP 07/19/17 12:30 07/19/17 05:55 Laboratory Tests 08/20/14 08/22/14 08/11/15 21:00 05:30 14:00 WBC Hgb INR ABG pH ABG pCO2 at Pt Temp ABG pO2 at Pt Temp BUN Creatinine 1.7 H 1.4 H Random Glucose Lactic Acid Urine Protein Negative Urine Blood Negative 03/03/16 03/03/16 03/03/16 02:41 02:41 09:50 WBC Hgb INR ABG pH ABG pCO2 at Pt Temp ABG pO2 at Pt Temp BUN Creatinine 1.5 H 1.7 H Random Glucose Lactic Acid 1.127 Urine Protein Urine Blood 03/05/16 07/18/17 07/18/17 06:00 15:51 16:09 WBC Hgb INR ABG pH ABG pCO2 at Pt Temp ABG pO2 at Pt Temp BUN Creatinine 1.6 H 1.3 H Random Glucose Lactic Acid Urine Protein Negative Urine Blood 2+ H 07/18/17 07/18/17 07/19/17 17:19 21:50 05:55 WBC Hgb 7.8 L INR ABG pH 7.59 H D ABG pCO2 at Pt Temp 20.7 L D ABG pO2 at Pt Temp 244.0 H* D BUN Creatinine 1.6 H Random Glucose Lactic Acid Urine Protein Urine Blood 07/19/17 07/19/17 07/19/17 05:55 09:10 09:15 WBC Hgb INR ABG pH 7.44 ABG pCO2 at Pt Temp 32.1 L D ABG pO2 at Pt Temp 106.0 H D BUN 32 H Creatinine 1.7 H Random Glucose 151 H Lactic Acid 2.6 H* Urine Protein Urine Blood 07/19/17 07/19/17 07/19/17 09:15 12:30 15:10 WBC 12.1 H Hgb 7.4 L INR 1.04 ABG pH ABG pCO2 at Pt Temp ABG pO2 at Pt Temp BUN Creatinine Random Glucose Lactic Acid 3.9 H* Urine Protein Urine Blood Imaging - Results Chest X-ray: Report Reviewed Problem List - Problems (1) CHF (congestive heart failure) Code(s): I50.9 - HEART FAILURE, UNSPECIFIED Qualifiers: Heart failure type: diastolic Heart failure chronicity: acute on chronic Qualified Code(s): I50.33 - Acute on chronic diastolic (congestive) heart failure (2) SOB (shortness of breath) Code(s): R06.02 - SHORTNESS OF BREATH (3) Acute on chronic renal failure Code(s): N17.9 - ACUTE KIDNEY FAILURE, UNSPECIFIED; N18.9 - CHRONIC KIDNEY DISEASE, UNSPECIFIED (4) Acute renal failure Code(s): N17.9 - ACUTE KIDNEY FAILURE, UNSPECIFIED (5) Anemia Code(s): D64.9 - ANEMIA, UNSPECIFIED Qualifiers: Anemia type: due to other cause Other causes of anemia: due to chronic kidney disease (6) CKD (chronic kidney disease) Code(s): N18.9 - CHRONIC KIDNEY DISEASE, UNSPECIFIED Qualifiers: Chronic kidney disease stage: stage 3 (moderate) Qualified Code(s): N18.3 - Chronic kidney disease, stage 3 (moderate) Assessment/Plan Current Medications Generic Name Dose Route Start Last Admin Trade Name Freq PRN Reason Stop Dose Admin Acetaminophen 650 mg 07/18/17 18:45 Tylenol - PO Q6H PRN PAIN LEVEL 4 - 6 Albuterol/Ipratropium 1 amp 07/19/17 08:00 07/19/17 16:15 Duoneb - NEB 1 amp RQID NICOLE Administration Aspirin 81 mg 07/20/17 10:00 Asa - PO DAILY NICOLE Atorvastatin Calcium 20 mg 07/19/17 22:00 Lipitor - PO HS NICOLE Carvedilol 3.125 mg 07/19/17 12:30 07/19/17 14:51 Coreg - PO 3.125 mg BID NICOLE Administration Chlorhexidine Gluconate 1 applic 07/18/17 22:00 07/18/17 22:58 Hibiclens For Decolonization - TP 1 applic HS NICOLE Administration Enoxaparin Sodium 40 mg 07/19/17 10:00 07/19/17 14:51 Lovenox - SQ 40 mg DAILY NICOLE Administration Nitroglycerin/Dextrose 25 mg in 250 mls @ 60 mls/hr 07/18/17 16:45 07/19/17 16:48 Nitroglycerin 25mg/D5w 250ml IVPB Not Given TITR NICOLE 100 MCG/MIN CEFTRIAXONE 1 G/50 ML PREMIX 50 mls @ 100 mls/hr 07/19/17 10:00 07/19/17 10: 25 Ceftriaxone 1 Gm-D5w Bag IVPB 100 mls/hr DAILY NICOLE Administration Losartan Potassium 50 mg 07/19/17 12:30 07/19/17 14:51 Cozaar - PO 50 mg DAILY NICOLE Administration Melatonin 5 mg 07/18/17 23:26 07/18/17 23:55 Melatonin PO 5 mg HS PRN Administration INSOMNIA Mupirocin 1 applic 07/18/17 22:00 07/19/17 10:25 Bactroban Ointment (For Decolonization) - NS 07/23/17 21:59 1 applic BID NICOLE Administration Impression 1. dyspnea 2. CKD 3. CHF 4. cholesterol 5. copd 6. HTN poorly controlled 7. resp failure requiring bipap Plan - renal function is stable - resume lasix - repeat cxr in am - cont cozaar - bp is improved - discussed low sodium diet - will follow Dr Jarquin
[2017-07-19] MEDS ORDERED: FUROSEMIDE 40 MG TABLET (FP) PO ONE (18:00)
[2017-07-19] MEDS ORDERED: FUROSEMIDE 40 MG/4 ML INJECTABLE VIAL IVPUSH ONE (18:38)
--- NOTE | 2017-07-19 21:31 | CONSULT ---
Consult - text type - Consultation Consultation Note: Pt is an 86 year old female with pmhx of CKD, COPD, CHF, HTN, and anemia who presents to the ER for worsening shortness of breath. We have been consulted regarding her anemia - History Source History Provided By: Patient, Medical Record - Past Medical History Cardio/Vascular: Yes: AFIB (paroxysmal ), CHF, HTN, Hyperlipdemia Pulmonary: Yes: COPD Gastrointestinal: Yes: Hiatal Hernia Renal/: Yes: Renal Failure, Renal Inusuff, Other (benign renal mass) Psych: Yes: Anxiety, Depression - Smoking History Smoking history: Former smoker - Allergies Allergies/Adverse Reactions: Allergies Allergy/AdvReac Type Severity Reaction Status Date / Time erythromycin base Allergy Verified 03/03/16 02:18 [Erythromycin Base] prednisone AdvReac Verified 03/03/16 02:18 accromycin AdvReac Mild makes pt. Uncoded 03/03/16 02:18 hyper - Home Medications Home Medications: Ambulatory Orders Unobtainable [Unobtainable] 07/18/17 Physical Exam Vital Signs: Last Vital Signs Temp Pulse Resp BP Pulse Ox 98.4 F 88 20 94/74 98 07/20/17 06:00 07/20/17 06:00 07/20/17 06:00 07/20/17 06:00 07/19/17 20:47 Eyes: Yes: WNL HENT: Yes: Atraumatic, Normocephalic Neck: Yes: Trachea Midline Cardiovascular: Yes: Regular Rate and Rhythm, S1, S2 Respiratory: Yes: CTA Bilaterally, On BiPap, Tachypnea Gastrointestinal: Yes: Normal Bowel Sounds, Soft Neurological: Yes: Alert, Oriented ...Motor Strength: WNL Abnormal Lab Results 07/19/17 07/19/17 07/19/17 05:55 05:55 09:10 WBC 11.1 H RBC 2.88 L Hgb 7.8 L Hct 24.1 L MCHC Neutrophils % 91.0 H Lymphocytes % 5.6 L Monocytes % 3.1 L PTT (Actin FS) ABG pCO2 at Pt Temp 32.1 L D ABG pO2 at Pt Temp 106.0 H D ABG HCO3 21.4 L ABG O2 Content 10.2 L Carbon Dioxide 19 L BUN 32 H Creatinine 1.7 H Random Glucose 151 H Lactic Acid AST 14 L Albumin 3.2 L Crossmatch 07/19/17 07/19/17 07/19/17 09:15 09:15 12:30 WBC 12.1 H RBC 2.74 L Hgb 7.4 L Hct 23.1 L MCHC 31.9 L Neutrophils % 86.8 H Lymphocytes % 4.3 L D Monocytes % PTT (Actin FS) 25.3 L ABG pCO2 at Pt Temp ABG pO2 at Pt Temp ABG HCO3 ABG O2 Content Carbon Dioxide BUN Creatinine Random Glucose Lactic Acid 2.6 H* AST Albumin Crossmatch 07/19/17 07/19/17 15:10 18:00 WBC RBC Hgb Hct MCHC Neutrophils % Lymphocytes % Monocytes % PTT (Actin FS) ABG pCO2 at Pt Temp ABG pO2 at Pt Temp ABG HCO3 ABG O2 Content Carbon Dioxide BUN Creatinine Random Glucose Lactic Acid 3.9 H* AST Albumin Crossmatch See Detail Active Medications Generic Name Dose Route Start Last Admin Trade Name Freq PRN Reason Stop Dose Admin Acetaminophen 650 mg 07/18/17 18:45 Tylenol - PO Q6H PRN PAIN LEVEL 4 - 6 Albuterol/Ipratropium 1 amp 07/19/17 08:00 07/19/17 21:00 Duoneb - NEB 1 amp RQID NICOLE Administration Aspirin 81 mg 07/20/17 10:00 Asa - PO DAILY [facility] Atorvastatin Calcium 20 mg 07/19/17 22:00 07/19/17 22:02 Lipitor - PO 20 mg HS NICOLE Administration Carvedilol 3.125 mg 07/19/17 12:30 07/19/17 22:02 Coreg - PO 3.125 mg BID NICOLE Administration Chlorhexidine Gluconate 1 applic 07/18/17 22:00 07/19/17 22:02 Hibiclens For Decolonization - TP 1 applic HS NICOLE Administration Enoxaparin Sodium 40 mg 07/19/17 10:00 07/19/17 14:51 Lovenox - SQ 40 mg DAILY NICOLE Administration Furosemide 40 mg 07/20/17 10:00 Lasix - PO DAILY [facility] CEFTRIAXONE 1 G/50 ML PREMIX 50 mls @ 100 mls/hr 07/19/17 10:00 07/19/17 10: 25 Ceftriaxone 1 Gm-D5w Bag IVPB 100 mls/hr DAILY [facility] Administration Losartan Potassium 50 mg 07/19/17 12:30 07/19/17 14:51 Cozaar - PO 50 mg DAILY NICOLE Administration Melatonin 5 mg 07/18/17 23:26 07/19/17 22:03 Melatonin PO 5 mg HS PRN Administration INSOMNIA Mupirocin 1 applic 07/18/17 22:00 07/19/17 22:02 Bactroban Ointment (For Decolonization) - NS 07/23/17 21:59 1 applic BID NICOLE Administration Imaging - Results Chest X-ray: Report Reviewed Problem List - Problems (1) CHF (congestive heart failure) Code(s): I50.9 - HEART FAILURE, UNSPECIFIED Qualifiers: Heart failure type: diastolic Heart failure chronicity: acute on chronic Qualified Code(s): I50.33 - Acute on chronic diastolic (congestive) heart failure (2) SOB (shortness of breath) Code(s): R06.02 - SHORTNESS OF BREATH (3) Acute on chronic renal failure Code(s): N17.9 - ACUTE KIDNEY FAILURE, UNSPECIFIED; N18.9 - CHRONIC KIDNEY DISEASE, UNSPECIFIED (4) Acute renal failure Code(s): N17.9 - ACUTE KIDNEY FAILURE, UNSPECIFIED (5) Anemia Code(s): D64.9 - ANEMIA, UNSPECIFIED Qualifiers: Anemia type: due to other cause Other causes of anemia: due to chronic kidney disease (6) CKD (chronic kidney disease) Code(s): N18.9 - CHRONIC KIDNEY DISEASE, UNSPECIFIED Qualifiers: Chronic kidney disease stage: stage 3 (moderate) Qualified Code(s): N18.3 - Chronic kidney disease, stage 3 (moderate) Current Medications Generic Name Dose Route Start Last Admin Trade Name Freq PRN Reason Stop Dose Admin Acetaminophen 650 mg 07/18/17 18:45 Tylenol - PO Q6H PRN PAIN LEVEL 4 - 6 Albuterol/Ipratropium 1 amp 07/19/17 08:00 07/19/17 21:00 Duoneb - NEB 1 amp RQID NICOLE Administration Aspirin 81 mg 07/20/17 10:00 Asa - PO DAILY [facility]ICO[facility] Atorvastatin Calcium 20 mg 07/19/17 22:00 07/19/17 22:02 Lipitor - PO 20 mg HS NICOLE Administration Carvedilol 3.125 mg 07/19/17 12:30 07/19/17 22:02 Coreg - PO 3.125 mg BID NICOLE Administration Chlorhexidine Gluconate 1 applic 07/18/17 22:00 07/19/17 22:02 Hibiclens For Decolonization - TP 1 applic HS NICOLE Administration Enoxaparin Sodium 40 mg 07/19/17 10:00 07/19/17 14:51 Lovenox - SQ 40 mg DAILY NICOLE Administration Furosemide 40 mg 07/20/17 10:00 Lasix - PO DAILY [facility] CEFTRIAXONE 1 G/50 ML PREMIX 50 mls @ 100 mls/hr 07/19/17 10:00 07/19/17 10: 25 Ceftriaxone 1 Gm-D5w Bag IVPB 100 mls/hr DAILY [facility] Administration Losartan Potassium 50 mg 07/19/17 12:30 07/19/17 14:51 Cozaar - PO 50 mg DAILY NICOLE Administration Melatonin 5 mg 07/18/17 23:26 07/19/17 22:03 Melatonin PO 5 mg HS PRN Administration INSOMNIA Mupirocin 1 applic 07/18/17 22:00 07/19/17 22:02 Bactroban Ointment (For Decolonization) - NS 07/23/17 21:59 1 applic BID NICOLE Administration A/P Pt is an 86 year old female with pmhx of CKD, COPD, CHF, HTN, and anemia who presents for worsening shortness of breath. On lasix diuresis with clinical improvement Anemia multifactorial normocytic anemia of chronic disease/CKD +/- gi losses/iron deficiency ferritin 6 await iron sat and consider iv iron not a candidate for invasive gi w/u at this time check B12/folate/TSH would transfuse PRBCs for Hgb 8 with lasix diuresis
[2017-07-19] MEDS ORDERED: FUROSEMIDE 40 MG/4 ML INJECTABLE VIAL ONE (21:58)
[2017-07-19] MEDS ORDERED: PT OWN MED DRAWER 7, Y5N ONE (21:58)
[2017-07-19] MEDS ORDERED: ATORVASTATIN CA 20 MG TABLET (FP) PO SCH (22:00)
[2017-07-19] MEDS: CHLORHEXIDINE GLUCONATE 4% CLEANSER FOR DECOLONIZATION TP SCH (22:02)
[2017-07-19] MEDS: MELATONIN 5 MG TABLETS PO PRN (22:03)
[2017-07-19 22:44] LABS: ARTERIAL BLD GAS O2 SATURATION 98.3 % (90-98.9)
[2017-07-20 06:37] LABS: BASO % 0.7 % (0-2.0); EOS % 0.8 % (0-4.5); LYMPH % 8.6 % (8-40); MCH 27.8 pg (25.7-33.7); MCHC 33.3 g/dl (32.0-36.0); MEAN CELL VOLUME 83.4 fl (80-96); MEAN PLT VOLUME 8.5 fl (7.5-11.1); MONO % 9.4 % (3.8-10.2); NEUT % 80.5 % (42.8-82.8); PLATELET COUNT 398 K/MM3 (134-434); RBC 3.24 M/mm3 (3.60-5.2); RDW 14.9 % (11.6-15.6)
[2017-07-20 06:52] LABS: INR 1.03 (0.82-1.09); PROTHROMBIN TIME (PATIENT) 11.6 SEC (9.98-11.88)
[2017-07-20 06:54] LABS: ACTIVATED PTT 22.8 SECONDS (26.9-34.4)
[2017-07-20 07:06] LABS: CHLORIDE 101 mmol/L (98-107); SODIUM 140 mmol/L (136-145)
[2017-07-20 07:12] LABS: ALBUMIN 3.2 g/dl (3.4-5.0); ALK PHOS 78 U/L (45-117); ANION GAP 14 (8-16); BILIRUBIN,TOTAL 0.9 mg/dL (0.2-1.0); BLOOD UREA NITROGEN 45 mg/dL (7-18); CO2 25 mmol/L (21-32); CREATININE 1.6 mg/dL (0.55-1.02); GLUCOSE,RANDOM 100 mg/dL (74-106); MAGNESIUM 2.4 mg/dL (1.8-2.4); SGOT/AST 25 U/L (15-37); SGPT/ALT 21 U/L (12-78); TOT PROT 6.4 g/dl (6.4-8.2)
[2017-07-20 08:09] LABS: SERUM IRON SATURATION 3 % (15-55); TOTAL IRON BINDING CAPACITY 345 ug/dL (250-450); UIBC 333 ug/dL (118-369)
--- NOTE | 2017-07-20 08:58 | PN ---
Progress Note, Physician - Current Medication List Current Medications: Active Medications Acetaminophen (Tylenol -) 650 mg PO Q6H PRN PRN Reason: PAIN LEVEL 4 - 6 Albuterol/Ipratropium (Duoneb -) 1 amp NEB RQID [facility] Last Admin: 07/19/17 21:00 Dose: 1 amp Aspirin (Asa -) 81 mg PO DAILY [facility] Atorvastatin Calcium (Lipitor -) 20 mg PO HS [facility] Last Admin: 07/19/17 22:02 Dose: 20 mg Carvedilol (Coreg -) 3.125 mg PO BID [facility] Last Admin: 07/19/17 22:02 Dose: 3.125 mg Chlorhexidine Gluconate (Hibiclens For Decolonization -) 1 applic TP HS [facility] Last Admin: 07/19/17 22:02 Dose: 1 applic Enoxaparin Sodium (Lovenox -) 40 mg SQ DAILY [facility] Last Admin: 07/19/17 14:51 Dose: 40 mg Furosemide (Lasix -) 40 mg PO DAILY [facility] CEFTRIAXONE 1 G/50 ML PREMIX (Ceftriaxone 1 Gm-D5w Bag) 50 mls @ 100 mls/hr IVPB DAILY [facility] Last Admin: 07/19/17 10:25 Dose: 100 mls/hr Losartan Potassium (Cozaar -) 50 mg PO DAILY [facility] Last Admin: 07/19/17 14:51 Dose: 50 mg Melatonin (Melatonin) 5 mg PO HS PRN PRN Reason: INSOMNIA Last Admin: 07/19/17 22:03 Dose: 5 mg Mupirocin (Bactroban Ointment (For Decolonization) -) 1 applic NS BID [facility] Stop: 07/23/17 21:59 Last Admin: 07/19/17 22:02 Dose: 1 applic - Objective Vital Signs: Vital Signs Temperature 98.4 F 07/20/17 06:00 Pulse Rate 64 07/20/17 08:00 Respiratory Rate 18 07/20/17 08:00 Blood Pressure 109/57 07/20/17 08:00 O2 Sat by Pulse Oximetry (%) 98 07/20/17 08:00 Labs: CBC, BMP 07/20/17 05:40 07/20/17 05:40 INR, PTT INR 1.03 (0.82-1.09) 07/20/17 05:40 Assessment/Plan - Problems (1) CHF (congestive heart failure) Assessment/Plan: cardiology evaluation off nitro drip strict I/O daily weights Code(s): I50.9 - HEART FAILURE, UNSPECIFIED Qualifiers: Heart failure type: unspecified Heart failure chronicity: acute Qualified Code(s): I50.9 - Heart failure, unspecified (2) SOB (shortness of breath) Assessment/Plan: off nitro drip got 60mg of lasix in ER- now breathing is better-on po lasix did not need to use bipap cultures negative pulm eval Code(s): R06.02 - SHORTNESS OF BREATH (3) Anemia Assessment/Plan: repeat cbc, Laboratory Tests 07/19/17 07/20/17 12:30 05:40 Hgb 7.4 L 9.0 L D stool ocuult iron panel GI eval/heme eval Code(s): D64.9 - ANEMIA, UNSPECIFIED Qualifiers: Anemia type: due to other cause Other causes of anemia: due to chronic kidney disease (4) Acute on chronic renal failure Assessment/Plan: renal sono renal eval Code(s): N17.9 - ACUTE KIDNEY FAILURE, UNSPECIFIED; N18.9 - CHRONIC KIDNEY DISEASE, UNSPECIFIED
[2017-07-20] MEDS: ALBUTEROL SO4 2.5/IPRATROPIUM 0.5 INH SOL 3 ML VIAL.NEB. NEB SCH ×4 (09:00→20:50)
--- NOTE | 2017-07-20 09:04 | PN ---
Progress Note (short form) - Note Progress Note: Chief Complaint: Events noted, notes reviewed, denies any chest pain, dyspnea improved, admits poor compliance to therapy administration which she attributes to confusion and forgetfulness History of Present Illness: Seen and examined in the ICU. Events noted, notes reviewed, denies any chest pain, dyspnea improved, admits poor compliance to therapy administration which she attributes to confusion and forgetfulness Echocardiography dated 07/19/2017 revealed Normal bi-ventricular size and function, abnormal LV compliance, mild MR, TR, AR MPI study dated 10/26/2016 revealed No ischemia, LVEF 66% Medications: Current Medications Acetaminophen (Tylenol -) 650 mg PO Q6H PRN PRN Reason: PAIN LEVEL 4 - 6 Albuterol/Ipratropium (Duoneb -) 1 amp NEB RQID [facility] Last Admin: 07/19/17 21:00 Dose: 1 amp Aspirin (Asa -) 81 mg PO DAILY [facility] Atorvastatin Calcium (Lipitor -) 20 mg PO HS [facility] Last Admin: 07/19/17 22:02 Dose: 20 mg Carvedilol (Coreg -) 3.125 mg PO BID [facility] Last Admin: 07/19/17 22:02 Dose: 3.125 mg Chlorhexidine Gluconate (Hibiclens For Decolonization -) 1 applic TP HS [facility] Last Admin: 07/19/17 22:02 Dose: 1 applic Enoxaparin Sodium (Lovenox -) 40 mg SQ DAILY [facility] Last Admin: 07/19/17 14:51 Dose: 40 mg Furosemide (Lasix -) 40 mg PO DAILY [facility] CEFTRIAXONE 1 G/50 ML PREMIX (Ceftriaxone 1 Gm-D5w Bag) 50 mls @ 100 mls/hr IVPB DAILY [facility] Last Admin: 07/19/17 10:25 Dose: 100 mls/hr Losartan Potassium (Cozaar -) 50 mg PO DAILY [facility] Last Admin: 07/19/17 14:51 Dose: 50 mg Melatonin (Melatonin) 5 mg PO HS PRN PRN Reason: INSOMNIA Last Admin: 07/19/17 22:03 Dose: 5 mg Mupirocin (Bactroban Ointment (For Decolonization) -) 1 applic NS BID [facility] Stop: 07/23/17 21:59 Last Admin: 07/19/17 22:02 Dose: 1 applic Review of Systems - Review of Systems Constitutional: no symptoms reported Respiratory: denies Cough or Sputum Production Cardiovascular: as noted above Gastrointestinal: denies Nausea, Vomiting, Diarrhea, Constipation or Abdominal Pain Genitourinary: no symptoms reported Musculoskeletal: no symptoms reported Endocrine: no symptoms reported Vital Signs: Last Vital Signs Temp Pulse Resp BP Pulse Ox 98.4 F 64 18 109/57 98 07/20/17 06:00 07/20/17 08:00 07/20/17 08:00 07/20/17 08:00 07/20/17 08:00 Intake & Output 07/17/17 07/18/17 07/19/17 07/20/17 23:59 23:59 23:59 23:59 Intake Total 345 1372 100 Output Total 514 970 8909 Balance -255 422 -1700 Weight 132 lb 1 oz 132 lb 1 oz 129 lb 1 oz Constitutional: No Distress, Calm Neck: Supple Negative JVD No Bruit Respiratory: Clear to A&P Bilaterally Cardiovascular: S1 S2 Regular Rate and Rhythm Grade 1-2/6 SM Gastrointestinal: Soft Benign Normal Bowel Sounds Ext: No Edema Labs: CBC, BMP 07/20/17 05:40 07/20/17 05:40 Hepatic Panel Total Bilirubin 0.9 mg/dL (0.2-1.0) D 07/20/17 05:40 AST 25 U/L (15-37) 07/20/17 05:40 ALT 21 U/L (12-78) 07/20/17 05:40 Alkaline Phosphatase 78 U/L (45-117) 07/20/17 05:40 Albumin 3.2 g/dl (3.4-5.0) L 07/20/17 05:40 Troponin, BNP 07/19/17 09:30 Troponin I 0.02 INR, PTT INR 1.03 (0.82-1.09) 07/20/17 05:40 Assessment/Plan ASSESSMENT: 1. Acute hypoxic respiratory failure referable to 2. Acute on chronic class II-III NYHA classification diastolic LV failure in context of medication noncompliance, resolving and 3. Probale pnemonia 4. 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 HTN/HCVD 6. Hyperlipidemia 7. COPD 8. CKD 9. Anemia PLAN: 1. Continue Lasix with close monitoring of renal function and electrolytes 2. Continue Carvedilol 3. Continue Cozaar 4. Continue ASA 5. Continue Lipitor 6. Antibiotics as per the primary team 7. Can be transferred to step down unit/telemetry Patient to follow-up with Dr. Cm Liu at [facility] upon D/C Romulo Kiran MD
[2017-07-20] MEDS ORDERED: ASPIRIN 81 MG CHEWABLE TABLETS PO SCH (10:00)
[2017-07-20] MEDS ORDERED: FUROSEMIDE 40 MG TABLET (FP) PO SCH ×2 (10:00)
[2017-07-20] MEDS ORDERED: PT OWN MED DRAWER 7, Y5N ONE (10:24)
[2017-07-20] MEDS: LOSARTAN POTASSIUM 50 MG TABLET (FP) PO SCH (10:27)
[2017-07-20] MEDS: CEFTRIAXONE 1 G/50 ML PREMIX 50 ML IVPB SCH (10:27)
[2017-07-20] MEDS: CARVEDILOL 3.125 MG TABLET (FP) PO SCH ×2 (10:27→22:16)
[2017-07-20] MEDS: MUPIROCIN 2% TOPICAL OINTMENT FOR DECOLONIZATION NS SCH (10:27)
[2017-07-20] MEDS: ENOXAPARIN NA (PORCINE) 40 MG/0.4 ML DISP.SYRIN SQ SCH (10:28)
--- NOTE | 2017-07-20 11:11 | PN ---
Progress Note (short form) - Note Progress Note: PULMONARY/CCM Pt seen and examined in the ICU. States breathing better. No cough or chest pain. Last Vital Signs Temp Pulse Resp BP Pulse Ox 98.6 F 86 20 114/58 96 07/20/17 10:00 07/20/17 10:00 07/20/17 10:00 07/20/17 10:00 07/20/17 09:30 Intake & Output 07/17/17 07/18/17 07/19/17 07/20/17 23:59 23:59 23:59 23:59 Intake Total 345 1372 100 Output Total 359 909 7401 Balance -255 422 -1700 Weight 59.903 kg 59.903 kg 58.542 kg Gen: NAD at rest Heart: RRR Lung: decreased breath sounds at the bases Abd: soft, nontender Ext: no edema CBC, BMP 07/20/17 05:40 07/20/17 05:40 Active Medications Acetaminophen (Tylenol -) 650 mg PO Q6H PRN PRN Reason: PAIN LEVEL 4 - 6 Albuterol/Ipratropium (Duoneb -) 1 amp NEB RQID [facility] Last Admin: 07/20/17 09:00 Dose: 1 amp Aspirin (Asa -) 81 mg PO DAILY [facility] Last Admin: 07/20/17 10:27 Dose: 81 mg Atorvastatin Calcium (Lipitor -) 20 mg PO HS [facility] Last Admin: 07/19/17 22:02 Dose: 20 mg Carvedilol (Coreg -) 3.125 mg PO BID [facility] Last Admin: 07/20/17 10:27 Dose: 3.125 mg Chlorhexidine Gluconate (Hibiclens For Decolonization -) 1 applic TP HS [facility] Last Admin: 07/19/17 22:02 Dose: 1 applic Enoxaparin Sodium (Lovenox -) 40 mg SQ DAILY [facility] Last Admin: 07/20/17 10:28 Dose: 40 mg Furosemide (Lasix -) 40 mg PO DAILY [facility] Last Admin: 07/20/17 10:28 Dose: 40 mg CEFTRIAXONE 1 G/50 ML PREMIX (Ceftriaxone 1 Gm-D5w Bag) 50 mls @ 100 mls/hr IVPB DAILY [facility] Last Admin: 07/20/17 10:27 Dose: 100 mls/hr Losartan Potassium (Cozaar -) 50 mg PO DAILY [facility] Last Admin: 07/20/17 10:27 Dose: 50 mg Melatonin (Melatonin) 5 mg PO HS PRN PRN Reason: INSOMNIA Last Admin: 07/19/17 22:03 Dose: 5 mg Mupirocin (Bactroban Ointment (For Decolonization) -) 1 applic NS BID [facility] Stop: 07/23/17 21:59 Last Admin: 07/20/17 10:27 Dose: 1 applic A/P Acute Hypoxic Respiratory Failure resolved Acute on Chronic Diastolic Heart Failure HTN COPD Hyperlipidemia CKD r/o Pneumonia - complete empiric antibiotics - lasix - monitor urine output, creatinine - beta wilber, ARB - inhaled bronchodilators - DVT prophylaxis - can monitor on telemetry
--- NOTE | 2017-07-20 12:23 | PN ---
Progress Note (short form) - Note Progress Note: covering dr vickers problems 1. dyspnea 2. CKD 3. CHF 4. cholesterol 5. copd 6. HTN poorly controlled 7. resp failure requiring bipap Current Medications Acetaminophen (Tylenol -) 650 mg PO Q6H PRN PRN Reason: PAIN LEVEL 4 - 6 Albuterol/Ipratropium (Duoneb -) 1 amp NEB RQID [facility] Last Admin: 07/20/17 09:00 Dose: 1 amp Aspirin (Asa -) 81 mg PO DAILY [facility] Last Admin: 07/20/17 10:27 Dose: 81 mg Atorvastatin Calcium (Lipitor -) 20 mg PO HS [facility] Last Admin: 07/19/17 22:02 Dose: 20 mg Carvedilol (Coreg -) 3.125 mg PO BID [facility] Last Admin: 07/20/17 10:27 Dose: 3.125 mg Chlorhexidine Gluconate (Hibiclens For Decolonization -) 1 applic TP HS [facility] Last Admin: 07/19/17 22:02 Dose: 1 applic Enoxaparin Sodium (Lovenox -) 40 mg SQ DAILY [facility] Last Admin: 07/20/17 10:28 Dose: 40 mg Furosemide (Lasix -) 40 mg PO DAILY [facility] Last Admin: 07/20/17 10:28 Dose: 40 mg CEFTRIAXONE 1 G/50 ML PREMIX (Ceftriaxone 1 Gm-D5w Bag) 50 mls @ 100 mls/hr IVPB DAILY [facility] Last Admin: 07/20/17 10:27 Dose: 100 mls/hr Losartan Potassium (Cozaar -) 50 mg PO DAILY [facility] Last Admin: 07/20/17 10:27 Dose: 50 mg Melatonin (Melatonin) 5 mg PO HS PRN PRN Reason: INSOMNIA Last Admin: 07/19/17 22:03 Dose: 5 mg Mupirocin (Bactroban Ointment (For Decolonization) -) 1 applic NS BID [facility] Stop: 07/23/17 21:59 Last Admin: 07/20/17 10:27 Dose: 1 applic Last Vital Signs Temp Pulse Resp BP Pulse Ox 98.6 F 80 24 105/50 96 07/20/17 10:00 07/20/17 12:00 07/20/17 12:00 07/20/17 12:00 07/20/17 09:30 CBC, BMP 07/20/17 05:40 07/20/17 05:40 IMP- ckd stable, renal function is at her most recent baseline Resp status much better clinically doing well Plan- continue to monitor renal function
[2017-07-20] MEDS ORDERED: ACETAMINOPHEN 325 MG TABLET (FP) PO PRN (12:53)
[2017-07-20] MEDS ORDERED: MELATONIN 5 MG TABLETS PO PRN (12:53)
--- NOTE | 2017-07-20 15:02 | CON.GI ---
Consult Consult Specialty:: GI Reason for Consultation:: Anemia - History of Present Illness History of Present Illness: Chart reviewed, events noted. Discussed with the patient and her son. An 87F with chronic (at least since 2013) mormocytic, normochromic anemia recovering nicely from respiratory failure and diastolic CHF. Ambulating without difficultly. Had Colonoscopy many years ago. Reports no reflux-like symptoms, dysphagia, odynophagia, dyspepsia, abdominal pain, melena, hemeatochezia, hematemesis, change in stool caliper, or significant weight loss over the last 12 months. Lost 8 lb on this admission while treated with diuretics. - History Source History Provided By: Patient, Medical Record - Past Medical History Cardio/Vascular: Yes: AFIB (paroxysmal ), CHF, HTN, Hyperlipdemia Pulmonary: Yes: COPD Gastrointestinal: Yes: Hiatal Hernia Renal/: Yes: Renal Failure, Renal Inusuff, Other (benign renal mass) ...: No Psych: Yes: Anxiety, Depression - Alcohol/Substance Use Hx Alcohol Use: No History of Substance Use: reports: None - Smoking History Smoking history: Former smoker Have you smoked in the past 12 months: No Aproximately how many cigarettes per day: 0 If you are a former smoker, when did you quit?: 30 years ago - Social History History of Recent Travel: No Home Medications - Allergies Allergies/Adverse Reactions: Allergies Allergy/AdvReac Type Severity Reaction Status Date / Time erythromycin base Allergy Verified 03/03/16 02:18 [Erythromycin Base] prednisone AdvReac Verified 03/03/16 02:18 accromycin AdvReac Mild makes pt. Uncoded 03/03/16 02:18 hyper - Home Medications Home Medications: Ambulatory Orders Unobtainable [Unobtainable] 07/18/17 Family Disease History - Family Disease History Family History: Unremarkable Review of Systems Findings/Remarks: as per HPI, H&P Physical Exam-GI Vital Signs: Vital Signs Temperature 98.2 F 07/20/17 13:52 Pulse Rate 70 07/20/17 13:52 Respiratory Rate 16 07/20/17 13:52 Blood Pressure 132/58 07/20/17 13:52 O2 Sat by Pulse Oximetry (%) 97 07/20/17 12:00 Constitutional: Yes: Well Nourished, No Distress, Calm Eyes: Yes: Conjunctiva Clear HENT: Yes: Atraumatic Neck: Yes: Supple Cardiovascular: Yes: Regular Rate and Rhythm Respiratory: Yes: Regular ...Auscultate: Yes: Normoactive Bowel Sounds ...Palpate: Yes: Soft. No: Firm/Rigid, Guarding, Tenderness, Rebound Edema: No Neurological: Yes: Alert, Oriented Labs: CBC, BMP 07/20/17 05:40 07/20/17 05:40 INR, PTT INR 1.03 (0.82-1.09) 07/20/17 05:40 CBCD WBC 9.9 K/mm3 (4.0-10.0) 07/21/17 06:00 RBC 3.25 M/mm3 (3.60-5.2) L 07/21/17 06:00 Hgb 9.1 GM/dL (10.7-15.3) L 07/21/17 06:00 Hct 27.1 % (32.4-45.2) L 07/21/17 06:00 MCV 83.5 fl (80-96) 07/21/17 06:00 MCHC 33.4 g/dl (32.0-36.0) 07/21/17 06:00 RDW 15.1 % (11.6-15.6) 07/21/17 06:00 Plt Count 393 K/MM3 (134-434) 07/21/17 06:00 MPV 8.0 fl (7.5-11.1) 07/21/17 06:00 CMP Sodium 138 mmol/L (136-145) 07/21/17 07:28 Potassium 4.5 mmol/L (3.5-5.1) 07/21/17 07:28 Chloride 103 mmol/L (98-107) 07/21/17 07:28 Carbon Dioxide 26 mmol/L (21-32) 07/21/17 07:28 Anion Gap 9 (8-16) 07/21/17 07:28 BUN 55 mg/dL (7-18) H 07/21/17 07:28 Creatinine 1.9 mg/dL (0.55-1.02) H 07/21/17 07:28 Creat Clearance w eGFR 25.01 (>60) 07/21/17 07:28 Calcium 8.3 mg/dL (8.5-10.1) L 07/21/17 07:28 Total Bilirubin 0.4 mg/dL (0.2-1.0) D 07/21/17 07:28 AST 21 U/L (15-37) 07/21/17 07:28 ALT 24 U/L (12-78) 07/21/17 07:28 Alkaline Phosphatase 76 U/L (45-117) 07/21/17 07:28 Total Protein 6.0 g/dl (6.4-8.2) L 07/21/17 07:28 Albumin 3.2 g/dl (3.4-5.0) L 07/21/17 07:28 Problem List - Problems (1) Normocytic normochromic anemia Code(s): D64.9 - ANEMIA, UNSPECIFIED (2) CHF (congestive heart failure) Code(s): I50.9 - HEART FAILURE, UNSPECIFIED Qualifiers: Heart failure type: diastolic Heart failure chronicity: acute on chronic Qualified Code(s): I50.33 - Acute on chronic diastolic (congestive) heart failure (3) Acute on chronic renal failure Code(s): N17.9 - ACUTE KIDNEY FAILURE, UNSPECIFIED; N18.9 - CHRONIC KIDNEY DISEASE, UNSPECIFIED Assessment/Plan chronic multifactorial anemia. No recent GI work up. EGD/colonoscopy to r/o malignancy and inflammatory states discussed with the patient, her son and left msg with daughter, Spring. Iron profile, stool for hemoccult blood ordered.
[2017-07-20] MEDS: ATORVASTATIN CA 20 MG TABLET (FP) PO SCH (22:16)
[2017-07-21] MEDS: ALBUTEROL SO4 2.5/IPRATROPIUM 0.5 INH SOL 3 ML VIAL.NEB. NEB SCH ×4 (07:44→20:00)
[2017-07-21 08:04] LABS: BASO % 0.7 % (0-2.0); HEMATOCRIT 27.1 % (32.4-45.2); HEMOGLOBIN 9.1 GM/dL (10.7-15.3); LYMPH % 9.9 % (8-40); MCH 27.9 pg (25.7-33.7); MCHC 33.4 g/dl (32.0-36.0); MEAN CELL VOLUME 83.5 fl (80-96); MONO % 10.9 % (3.8-10.2); NEUT % 74.5 % (42.8-82.8); PLATELET COUNT 393 K/MM3 (134-434); RBC 3.25 M/mm3 (3.60-5.2); RDW 15.1 % (11.6-15.6); WHITE BLOOD COUNT 9.9 K/mm3 (4.0-10.0)
[2017-07-21 08:41] LABS: BLOOD UREA NITROGEN 55 mg/dL (7-18); CHLORIDE 103 mmol/L (98-107); POTASSIUM 4.5 mmol/L (3.5-5.1); SODIUM 138 mmol/L (136-145)
[2017-07-21 08:56] LABS: ALBUMIN 3.2 g/dl (3.4-5.0); ALK PHOS 76 U/L (45-117); ANION GAP 9 (8-16); BILIRUBIN,TOTAL 0.4 mg/dL (0.2-1.0); CALCIUM 8.3 mg/dL (8.5-10.1); CO2 26 mmol/L (21-32); CREATININE 1.9 mg/dL (0.55-1.02); GLUCOSE,RANDOM 83 mg/dL (74-106); SGOT/AST 21 U/L (15-37); SGPT/ALT 24 U/L (12-78)
[2017-07-21] MEDS ORDERED: FUROSEMIDE 40 MG TABLET (FP) PO SCH (10:00)
[2017-07-21] MEDS ORDERED: LOSARTAN POTASSIUM 50 MG TABLET (FP) PO SCH (10:00)
[2017-07-21] MEDS: ASPIRIN 81 MG CHEWABLE TABLETS PO SCH (11:53)
[2017-07-21] MEDS: CARVEDILOL 3.125 MG TABLET (FP) PO SCH ×2 (11:54→21:17)
[2017-07-21] MEDS: ENOXAPARIN NA (PORCINE) 40 MG/0.4 ML DISP.SYRIN SQ SCH (11:55)
[2017-07-21] MEDS: CEFTRIAXONE 1 G/50 ML PREMIX 50 ML IVPB SCH (11:58)
--- NOTE | 2017-07-21 11:59 | PN ---
Progress Note (short form) - Note Progress Note: Chief Complaint: Events noted, notes reviewed, denies any chest pain, dyspnea resolved, patient was strongly counselled compliance to therapy administration History of Present Illness: Seen and examined in the ICU. Events noted, notes reviewed, denies any chest pain, dyspnea resolved, patient was strongly counselled compliance to therapy administration Echocardiography dated 07/19/2017 revealed Normal bi-ventricular size and function, abnormal LV compliance, mild MR, TR, AR MPI study dated 10/26/2016 revealed No ischemia, LVEF 66% Medications: Current Medications Acetaminophen (Tylenol -) 650 mg PO Q6H PRN PRN Reason: PAIN LEVEL 4 - 6 Albuterol/Ipratropium (Duoneb -) 1 amp NEB RQID [facility] Last Admin: 07/21/17 11:43 Dose: 1 amp Aspirin (Asa -) 81 mg PO DAILY [facility] Atorvastatin Calcium (Lipitor -) 20 mg PO HS [facility] Last Admin: 07/20/17 22:16 Dose: 20 mg Carvedilol (Coreg -) 3.125 mg PO BID [facility] Last Admin: 07/20/17 22:16 Dose: 3.125 mg Enoxaparin Sodium (Lovenox -) 40 mg SQ DAILY [facility] Furosemide (Lasix -) 40 mg PO DAILY [facility] CEFTRIAXONE 1 G/50 ML PREMIX (Ceftriaxone 1 Gm-D5w Bag) 50 mls @ 100 mls/hr IVPB DAILY [facility] Losartan Potassium (Cozaar -) 50 mg PO DAILY [facility] Melatonin (Melatonin) 5 mg PO HS PRN PRN Reason: INSOMNIA Review of Systems - Review of Systems Constitutional: no symptoms reported Respiratory: denies Cough or Sputum Production Cardiovascular: as noted above Gastrointestinal: denies Nausea, Vomiting, Diarrhea, Constipation or Abdominal Pain Genitourinary: no symptoms reported Musculoskeletal: no symptoms reported Endocrine: no symptoms reported Vital Signs: Last Vital Signs Temp Pulse Resp BP Pulse Ox 98.7 F 71 18 104/51 98 07/21/17 05:42 07/21/17 05:42 07/21/17 05:42 07/21/17 05:42 07/21/17 11:50 Intake & Output 07/18/17 07/19/17 07/20/17 07/21/17 23:59 23:59 23:59 23:59 Intake Total 345 1372 360 200 Output Total 052 755 2899 Balance -255 422 -1440 200 Weight 132 lb 1 oz 132 lb 1 oz 129 lb 1 oz 130 lb Constitutional: No Distress, Calm Neck: Supple Negative JVD No Bruit Respiratory: Clear to A&P Bilaterally Cardiovascular: S1 S2 Regular Rate and Rhythm Grade 1-2/6 SM Gastrointestinal: Soft Benign Normal Bowel Sounds Ext: No Edema Labs: CBC, BMP 07/21/17 07:28 Hepatic Panel Total Bilirubin 0.4 mg/dL (0.2-1.0) D 07/21/17 07:28 AST 21 U/L (15-37) 07/21/17 07:28 ALT 24 U/L (12-78) 07/21/17 07:28 Alkaline Phosphatase 76 U/L (45-117) 07/21/17 07:28 Albumin 3.2 g/dl (3.4-5.0) L 07/21/17 07:28 INR, PTT INR 1.03 (0.82-1.09) 07/20/17 05:40 Assessment/Plan ASSESSMENT: 1. Acute hypoxic respiratory failure referable to 2. 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 Probale pnemonia 4. 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 HTN/HCVD 6. Hyperlipidemia 7. COPD 8. Acute on CKD, worsening renal function 9. Anemia PLAN: 1. Hold Lasix in view of the above note worsening renal function 2. Continue Carvedilol 3. Hold Cozaar in view of the above note worsening renal function 4. Continue ASA 5. Continue Lipitor 6. Antibiotics as per the primary team Patient to follow-up with Dr. Cm Liu at [facility] upon D/C Romulo Kiran MD
[2017-07-21] MEDS ORDERED: PT OWN MED DRAWER 7, Y5N ONE (13:01)
--- NOTE | 2017-07-21 13:45 | PN ---
Progress Note (short form) - Note Progress Note: PULMONARY Feels well. Denies shortness of breath, cough or chest pain. Last Vital Signs Temp Pulse Resp BP Pulse Ox 98.7 F 71 18 104/51 98 07/21/17 05:42 07/21/17 05:42 07/21/17 05:42 07/21/17 05:42 07/21/17 11:50 Gen: NAD at rest Heart: RRR Lung: decreased breath sounds at the bases Abd: soft, nontender Ext: no edema CBC, BMP 07/21/17 07:28 Active Medications Acetaminophen (Tylenol -) 650 mg PO Q6H PRN PRN Reason: PAIN LEVEL 4 - 6 Albuterol/Ipratropium (Duoneb -) 1 amp NEB RQID [facility] Last Admin: 07/21/17 11:43 Dose: 1 amp Aspirin (Asa -) 81 mg PO DAILY [facility] Last Admin: 07/21/17 11:53 Dose: 81 mg Atorvastatin Calcium (Lipitor -) 20 mg PO HS [facility] Last Admin: 07/20/17 22:16 Dose: 20 mg Carvedilol (Coreg -) 3.125 mg PO BID [facility] Last Admin: 07/21/17 11:54 Dose: 3.125 mg Enoxaparin Sodium (Lovenox -) 40 mg SQ DAILY [facility] Last Admin: 07/21/17 11:55 Dose: 40 mg CEFTRIAXONE 1 G/50 ML PREMIX (Ceftriaxone 1 Gm-D5w Bag) 50 mls @ 100 mls/hr IVPB DAILY [facility] Last Admin: 07/21/17 11:58 Dose: 100 mls/hr Melatonin (Melatonin) 5 mg PO HS PRN PRN Reason: INSOMNIA A/P Acute Hypoxic Respiratory Failure resolved Acute on Chronic Diastolic Heart Failure HTN COPD Hyperlipidemia CKD r/o Pneumonia - complete empiric antibiotics - monitor urine output, creatinine - beta wilber, ARB - inhaled bronchodilators - DVT prophylaxis - can discharge from pulmonary standpoint
--- NOTE | 2017-07-21 17:31 | PN ---
Progress Note, Physician Chief Complaint: Shortness of Breath History of Present Illness: NAD, denies SOB seen by Cardiology, pulmonary and GI H/H stable Iron profile pending Stool OB pending - Current Medication List Current Medications: Active Medications Acetaminophen (Tylenol -) 650 mg PO Q6H PRN PRN Reason: PAIN LEVEL 4 - 6 Albuterol/Ipratropium (Duoneb -) 1 amp NEB RQID [facility] Last Admin: 07/21/17 17:00 Dose: Not Given Aspirin (Asa -) 81 mg PO DAILY [facility] Last Admin: 07/21/17 11:53 Dose: 81 mg Atorvastatin Calcium (Lipitor -) 20 mg PO HS [facility] Last Admin: 07/20/17 22:16 Dose: 20 mg Carvedilol (Coreg -) 3.125 mg PO BID [facility] Last Admin: 07/21/17 11:54 Dose: 3.125 mg Enoxaparin Sodium (Lovenox -) 40 mg SQ DAILY [facility] Last Admin: 07/21/17 11:55 Dose: 40 mg CEFTRIAXONE 1 G/50 ML PREMIX (Ceftriaxone 1 Gm-D5w Bag) 50 mls @ 100 mls/hr IVPB DAILY [facility] Last Admin: 07/21/17 11:58 Dose: 100 mls/hr Melatonin (Melatonin) 5 mg PO HS PRN PRN Reason: INSOMNIA - Objective Vital Signs: Vital Signs Temperature 98.5 F 07/21/17 14:00 Pulse Rate 93 H 07/21/17 14:00 Respiratory Rate 18 07/21/17 05:42 Blood Pressure 100/35 07/21/17 14:00 O2 Sat by Pulse Oximetry (%) 96 07/21/17 17:00 Constitutional: Yes: Well Nourished, No Distress, Calm Cardiovascular: Yes: Regular Rate and Rhythm Respiratory: Yes: Regular Gastrointestinal: Yes: Normal Bowel Sounds, Soft Neurological: Yes: Alert, Oriented Psychiatric: Yes: Alert, Oriented Labs: CBC, BMP 07/21/17 07:28 INR, PTT INR 1.03 (0.82-1.09) 07/20/17 05:40 Problem List - Problems (1) CHF (congestive heart failure) Assessment/Plan: -seen by cardiology -Lasix discontinued Code(s): I50.9 - HEART FAILURE, UNSPECIFIED Qualifiers: Heart failure type: diastolic Heart failure chronicity: acute on chronic Qualified Code(s): I50.33 - Acute on chronic diastolic (congestive) heart failure (2) SOB (shortness of breath) Assessment/Plan: -Seen by pulmonary -bronchodilators -IV abx Code(s): R06.02 - SHORTNESS OF BREATH (3) Anemia Assessment/Plan: -GI consult appreciated -Iron profile pending -Ferritin low -venofer -normal transfusion parameters -Stool OB pending Code(s): D64.9 - ANEMIA, UNSPECIFIED Qualifiers: Anemia type: due to other cause Other causes of anemia: due to chronic kidney disease (4) CKD (chronic kidney disease) Assessment/Plan: see by nephrology Code(s): N18.9 - CHRONIC KIDNEY DISEASE, UNSPECIFIED Qualifiers: Chronic kidney disease stage: stage 3 (moderate) Qualified Code(s): N18.3 - Chronic kidney disease, stage 3 (moderate) Assessment/Plan see problem list
--- NOTE | 2017-07-21 20:19 | PN ---
Progress Note (short form) - Note Progress Note: covering dr vickers problems 1. dyspnea 2. CKD 3. CHF 4. cholesterol 5. copd 6. HTN poorly controlled 7. resp failure requiring bipap Current Medications Acetaminophen (Tylenol -) 650 mg PO Q6H PRN PRN Reason: PAIN LEVEL 4 - 6 Albuterol/Ipratropium (Duoneb -) 1 amp NEB RQID [facility] Last Admin: 07/21/17 17:00 Dose: Not Given Aspirin (Asa -) 81 mg PO DAILY [facility] Last Admin: 07/21/17 11:53 Dose: 81 mg Atorvastatin Calcium (Lipitor -) 20 mg PO HS [facility] Last Admin: 07/20/17 22:16 Dose: 20 mg Carvedilol (Coreg -) 3.125 mg PO BID [facility] Last Admin: 07/21/17 11:54 Dose: 3.125 mg Enoxaparin Sodium (Lovenox -) 40 mg SQ DAILY [facility] Last Admin: 07/21/17 11:55 Dose: 40 mg CEFTRIAXONE 1 G/50 ML PREMIX (Ceftriaxone 1 Gm-D5w Bag) 50 mls @ 100 mls/hr IVPB DAILY [facility] Last Admin: 07/21/17 11:58 Dose: 100 mls/hr Melatonin (Melatonin) 5 mg PO HS PRN PRN Reason: INSOMNIA Last Vital Signs Temp Pulse Resp BP Pulse Ox 97.3 F L 84 20 148/72 96 07/21/17 17:00 07/21/17 17:00 07/21/17 17:00 07/21/17 17:00 07/21/17 17:00 lungs clear heart reg abd tender ext no edema CBC, BMP 07/21/17 07:28 IMP- ckd stable, renal function is at her most recent baseline Resp status much better clinically doing well Plan- continue to monitor renal function
[2017-07-21] MEDS: ATORVASTATIN CA 20 MG TABLET (FP) PO SCH (21:17)
[2017-07-22 07:17] LABS: BASO % 0.7 % (0-2.0); EOS % 4.9 % (0-4.5); HEMOGLOBIN 8.9 GM/dL (10.7-15.3); LYMPH % 9.5 % (8-40); MCH 27.4 pg (25.7-33.7); MEAN CELL VOLUME 83.1 fl (80-96); MEAN PLT VOLUME 7.8 fl (7.5-11.1); MONO % 9.3 % (3.8-10.2); NEUT % 75.6 % (42.8-82.8); PLATELET COUNT 378 K/MM3 (134-434); RBC 3.24 M/mm3 (3.60-5.2); WHITE BLOOD COUNT 10.3 K/mm3 (4.0-10.0)
[2017-07-22] MEDS: ALBUTEROL SO4 2.5/IPRATROPIUM 0.5 INH SOL 3 ML VIAL.NEB. NEB SCH ×3 (07:30→15:50)
[2017-07-22 07:48] LABS: ANION GAP 14 (8-16); BLOOD UREA NITROGEN 57 mg/dL (7-18); CALCIUM 8.3 mg/dL (8.5-10.1); CHLORIDE 101 mmol/L (98-107); CO2 24 mmol/L (21-32); GLUCOSE,RANDOM 93 mg/dL (74-106); POTASSIUM 3.7 mmol/L (3.5-5.1); SODIUM 139 mmol/L (136-145)
--- NOTE | 2017-07-22 09:04 | PN ---
Progress Note, Physician History of Present Illness: Dyspnea resolved, denies cough or chest pain. Reports sinus congestion. - Current Medication List Current Medications: Active Medications Acetaminophen (Tylenol -) 650 mg PO Q6H PRN PRN Reason: PAIN LEVEL 4 - 6 Albuterol/Ipratropium (Duoneb -) 1 amp NEB RQID [facility] Last Admin: 07/22/17 07:30 Dose: 1 amp Aspirin (Asa -) 81 mg PO DAILY [facility] Last Admin: 07/21/17 11:53 Dose: 81 mg Atorvastatin Calcium (Lipitor -) 20 mg PO HS [facility] Last Admin: 07/21/17 21:17 Dose: 20 mg Carvedilol (Coreg -) 3.125 mg PO BID [facility] Last Admin: 07/21/17 21:17 Dose: 3.125 mg Enoxaparin Sodium (Lovenox -) 40 mg SQ DAILY [facility] Last Admin: 07/21/17 11:55 Dose: 40 mg CEFTRIAXONE 1 G/50 ML PREMIX (Ceftriaxone 1 Gm-D5w Bag) 50 mls @ 100 mls/hr IVPB DAILY [facility] Last Admin: 07/21/17 11:58 Dose: 100 mls/hr Melatonin (Melatonin) 5 mg PO HS PRN PRN Reason: INSOMNIA - Objective Vital Signs: Vital Signs Temperature 97.4 F L 07/22/17 06:00 Pulse Rate 80 07/22/17 06:00 Respiratory Rate 20 07/22/17 06:00 Blood Pressure 142/83 07/22/17 06:00 O2 Sat by Pulse Oximetry (%) 96 07/21/17 17:00 Constitutional: Yes: No Distress, Calm Neck: Yes: Supple Cardiovascular: Yes: Regular Rate and Rhythm Respiratory: Yes: Regular, Diminished Gastrointestinal: Yes: Normal Bowel Sounds, Soft Edema: No Labs: CBC, BMP 07/22/17 06:45 07/22/17 06:45 INR, PTT INR 1.03 (0.82-1.09) 07/20/17 05:40 Problem List - Problems (1) CHF (congestive heart failure) Code(s): I50.9 - HEART FAILURE, UNSPECIFIED Qualifiers: Heart failure type: diastolic Heart failure chronicity: acute on chronic Qualified Code(s): I50.33 - Acute on chronic diastolic (congestive) heart failure (2) SOB (shortness of breath) Code(s): R06.02 - SHORTNESS OF BREATH (3) Anemia Code(s): D64.9 - ANEMIA, UNSPECIFIED Qualifiers: Anemia type: due to other cause Other causes of anemia: due to chronic kidney disease (4) COPD (chronic obstructive pulmonary disease) Code(s): J44.9 - CHRONIC OBSTRUCTIVE PULMONARY DISEASE, UNSPECIFIED Qualifiers: COPD type: unspecified COPD Qualified Code(s): J44.9 - Chronic obstructive pulmonary disease, unspecified (5) Hypertensive emergency Code(s): I10 - ESSENTIAL (PRIMARY) HYPERTENSION (6) Acute on chronic renal failure Code(s): N17.9 - ACUTE KIDNEY FAILURE, UNSPECIFIED; N18.9 - CHRONIC KIDNEY DISEASE, UNSPECIFIED Qualifiers: Chronic kidney disease stage: stage 3 (moderate) Assessment/Plan 07/19/2017 Normal biventricular size and fxn, mild MR, TR, AR, abnl LV compliance 10/26/2016 No ischemia, LVEF 66% 1. Acute hypoxic respiratory failure referable to 2. 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 COPD, r/o pnemonia 4. 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 HTN/HCVD 6. Hyperlipidemia. 7. Acute on CKD, worsening renal function 8. Anemia PLAN: 1. Hold Lasix in view of worsening renal function, resume once renal fxn stable 2. Continue Carvedilol 3.125 bid 3. Resume Cozaar once renal fxn stabilizes 4. Continue ASA 81 qd 5. Continue Lipitor 20 qhs 6. Antibiotic course as per the primary team, DVT prophylaxis, BD as needed Patient to follow-up with Dr. Cm Liu at [facility] upon D/C
[2017-07-22 09:56] VITALS: PULSE 90
--- NOTE | 2017-07-22 10:04 | PN ---
Progress Note, Physician History of Present Illness: No events. Appears comfortable - Current Medication List Current Medications: Active Medications Acetaminophen (Tylenol -) 650 mg PO Q6H PRN PRN Reason: PAIN LEVEL 4 - 6 Albuterol/Ipratropium (Duoneb -) 1 amp NEB RQID [facility] Last Admin: 07/22/17 07:30 Dose: 1 amp Aspirin (Asa -) 81 mg PO DAILY [facility] Last Admin: 07/21/17 11:53 Dose: 81 mg Atorvastatin Calcium (Lipitor -) 20 mg PO HS [facility] Last Admin: 07/21/17 21:17 Dose: 20 mg Carvedilol (Coreg -) 3.125 mg PO BID [facility] Last Admin: 07/21/17 21:17 Dose: 3.125 mg Enoxaparin Sodium (Lovenox -) 40 mg SQ DAILY [facility] Last Admin: 07/21/17 11:55 Dose: 40 mg CEFTRIAXONE 1 G/50 ML PREMIX (Ceftriaxone 1 Gm-D5w Bag) 50 mls @ 100 mls/hr IVPB DAILY [facility] Last Admin: 07/21/17 11:58 Dose: 100 mls/hr Melatonin (Melatonin) 5 mg PO HS PRN PRN Reason: INSOMNIA - Objective Vital Signs: Vital Signs Temperature 98.2 F 07/22/17 09:55 Pulse Rate 90 07/22/17 09:55 Respiratory Rate 18 07/22/17 09:55 Blood Pressure 136/60 07/22/17 09:55 O2 Sat by Pulse Oximetry (%) 96 07/22/17 09:00 Labs: CBC, BMP 07/22/17 06:45 07/22/17 06:45 INR, PTT INR 1.03 (0.82-1.09) 07/20/17 05:40 CBCD WBC 10.3 K/mm3 (4.0-10.0) H 07/22/17 06:45 RBC 3.24 M/mm3 (3.60-5.2) L 07/22/17 06:45 Hgb 8.9 GM/dL (10.7-15.3) L 07/22/17 06:45 Hct 27.0 % (32.4-45.2) L 07/22/17 06:45 MCV 83.1 fl (80-96) 07/22/17 06:45 MCHC 33.0 g/dl (32.0-36.0) 07/22/17 06:45 RDW 15.0 % (11.6-15.6) 07/22/17 06:45 Plt Count 378 K/MM3 (134-434) 07/22/17 06:45 MPV 7.8 fl (7.5-11.1) 07/22/17 06:45 CMP Sodium 139 mmol/L (136-145) 07/22/17 06:45 Potassium 3.7 mmol/L (3.5-5.1) 07/22/17 06:45 Chloride 101 mmol/L (98-107) 07/22/17 06:45 Carbon Dioxide 24 mmol/L (21-32) 07/22/17 06:45 Anion Gap 14 (8-16) 07/22/17 06:45 BUN 57 mg/dL (7-18) H 07/22/17 06:45 Creatinine 2.0 mg/dL (0.55-1.02) H 07/22/17 06:45 Creat Clearance w eGFR 25.01 (>60) 07/21/17 07:28 Calcium 8.3 mg/dL (8.5-10.1) L 07/22/17 06:45 Total Bilirubin 0.4 mg/dL (0.2-1.0) D 07/21/17 07:28 AST 21 U/L (15-37) 07/21/17 07:28 ALT 24 U/L (12-78) 07/21/17 07:28 Alkaline Phosphatase 76 U/L (45-117) 07/21/17 07:28 Total Protein 6.0 g/dl (6.4-8.2) L 07/21/17 07:28 Albumin 3.2 g/dl (3.4-5.0) L 07/21/17 07:28 Problem List - Problems (1) Normocytic normochromic anemia Code(s): D64.9 - ANEMIA, UNSPECIFIED (2) CHF (congestive heart failure) Code(s): I50.9 - HEART FAILURE, UNSPECIFIED Qualifiers: Heart failure type: diastolic Heart failure chronicity: acute on chronic Qualified Code(s): I50.33 - Acute on chronic diastolic (congestive) heart failure (3) Acute on chronic renal failure Code(s): N17.9 - ACUTE KIDNEY FAILURE, UNSPECIFIED; N18.9 - CHRONIC KIDNEY DISEASE, UNSPECIFIED Qualifiers: Chronic kidney disease stage: stage 3 (moderate) Assessment/Plan Chronic multifactorial anemia. w/o over signs of GI bleeding EGD/colonoscopy to r/o malignancy and inflammatory states discussed with pt's daughter Peg this am. The patient will need some time to recover from recent cardiopulmonary events. Endoscopic work up as OP. The pt will follow with her PCP and installer soft top for close monitoring in the interim. Follow Iron profile and stool hemoccult Consider small dose PPI daily
[2017-07-22] MEDS: CEFTRIAXONE 1 G/50 ML PREMIX 50 ML IVPB SCH (10:50)
[2017-07-22] MEDS: CARVEDILOL 3.125 MG TABLET (FP) PO SCH (11:28)
[2017-07-22] MEDS: ASPIRIN 81 MG CHEWABLE TABLETS PO SCH (11:28)
[2017-07-22] MEDS: ENOXAPARIN NA (PORCINE) 40 MG/0.4 ML DISP.SYRIN SQ SCH (11:28)
--- NOTE | 2017-07-22 12:13 | PN ---
Progress Note, Physician History of Present Illness: PULMONARY ALERT,OOB-CHAIR,-SOB,+ COUGH - Current Medication List Current Medications: Active Medications Acetaminophen (Tylenol -) 650 mg PO Q6H PRN PRN Reason: PAIN LEVEL 4 - 6 Albuterol/Ipratropium (Duoneb -) 1 amp NEB RQID [facility] Last Admin: 07/22/17 11:36 Dose: 1 amp Aspirin (Asa -) 81 mg PO DAILY [facility] Last Admin: 07/22/17 11:28 Dose: 81 mg Atorvastatin Calcium (Lipitor -) 20 mg PO HS [facility] Last Admin: 07/21/17 21:17 Dose: 20 mg Carvedilol (Coreg -) 3.125 mg PO BID [facility] Last Admin: 07/22/17 11:28 Dose: 3.125 mg Enoxaparin Sodium (Lovenox -) 40 mg SQ DAILY [facility] Last Admin: 07/22/17 11:28 Dose: 40 mg CEFTRIAXONE 1 G/50 ML PREMIX (Ceftriaxone 1 Gm-D5w Bag) 50 mls @ 100 mls/hr IVPB DAILY [facility] Last Admin: 07/22/17 10:50 Dose: 100 mls/hr Melatonin (Melatonin) 5 mg PO HS PRN PRN Reason: INSOMNIA - Objective Vital Signs: Vital Signs Temperature 98.2 F 07/22/17 09:55 Pulse Rate 90 07/22/17 09:55 Respiratory Rate 18 07/22/17 09:55 Blood Pressure 136/60 07/22/17 09:55 O2 Sat by Pulse Oximetry (%) 96 07/22/17 09:00 Constitutional: Yes: Well Nourished, Calm Eyes: Yes: WNL HENT: Yes: WNL Neck: Yes: WNL Cardiovascular: Yes: Regular Rate and Rhythm, S1, S2 Respiratory: Yes: Diminished Gastrointestinal: Yes: Normal Bowel Sounds, Soft Extremities: Yes: WNL Edema: No Labs: CBC, BMP 07/22/17 06:45 07/22/17 06:45 INR, PTT INR 1.03 (0.82-1.09) 07/20/17 05:40 Problem List - Problems (1) CHF (congestive heart failure) Code(s): I50.9 - HEART FAILURE, UNSPECIFIED Qualifiers: Heart failure type: diastolic Heart failure chronicity: acute on chronic Qualified Code(s): I50.33 - Acute on chronic diastolic (congestive) heart failure (2) SOB (shortness of breath) Code(s): R06.02 - SHORTNESS OF BREATH (3) Acute on chronic renal failure Code(s): N17.9 - ACUTE KIDNEY FAILURE, UNSPECIFIED; N18.9 - CHRONIC KIDNEY DISEASE, UNSPECIFIED Qualifiers: Chronic kidney disease stage: stage 3 (moderate) (4) COPD (chronic obstructive pulmonary disease) Code(s): J44.9 - CHRONIC OBSTRUCTIVE PULMONARY DISEASE, UNSPECIFIED Qualifiers: COPD type: unspecified COPD Qualified Code(s): J44.9 - Chronic obstructive pulmonary disease, unspecified (5) HTN (hypertension) Code(s): I10 - ESSENTIAL (PRIMARY) HYPERTENSION (6) CKD (chronic kidney disease) Code(s): N18.9 - CHRONIC KIDNEY DISEASE, UNSPECIFIED Qualifiers: Chronic kidney disease stage: stage 3 (moderate) Qualified Code(s): N18.3 - Chronic kidney disease, stage 3 (moderate) Assessment/Plan A/P Acute Hypoxic Respiratory Failure resolved Acute on Chronic Diastolic Heart Failure HTN COPD Hyperlipidemia CKD r/o Pneumonia - complete empiric antibiotics - monitor urine output, creatinine - beta wilber, ARB - inhaled bronchodilators - DVT prophylaxis DR JORDAN
--- NOTE | 2017-07-22 15:36 | DS ---
Physical Examination Vital Signs: Vital Signs Temperature 98.2 F 07/22/17 09:55 Pulse Rate 90 07/22/17 09:55 Respiratory Rate 18 07/22/17 09:55 Blood Pressure 136/60 07/22/17 09:55 O2 Sat by Pulse Oximetry (%) 96 07/22/17 09:00 Findings/Remarks: AWAKE ALERT FEELING BETTER CLEARED BY CARDIOLOGY/NEPHROLOGY/PULMONARY TO GO HOME Constitutional: Yes: No Distress Eyes: Yes: WNL, Occular Prosthesis Neck: Yes: WNL Cardiovascular: Yes: WNL Respiratory: Yes: WNL Gastrointestinal: Yes: WNL Renal/: Yes: WNL Musculoskeletal: Yes: WNL Extremities: Yes: WNL Edema: No Peripheral Pulses WNL: Yes Integumentary: Yes: WNL Wound/Incision: Yes: Clean/Dry Neurological: Yes: WNL ...Motor Strength: WNL Psychiatric: Yes: WNL Labs: CBC, BMP 07/22/17 06:45 07/22/17 06:45 Discharge Summary Reason For Visit: SHORTNESS OF BREATH,CONGESTIVE HEART FAILURE Current Active Problems CHF (congestive heart failure) (Acute) Normocytic normochromic anemia (Acute) SOB (shortness of breath) (Acute) Procedures: Principal: ECHO Other Procedures: RENAL SONO Hospital Course: ADMITTED FOR SOB/RESP DISTRESS/UTI TREATED WITH RESP SUPPORT, IV ABX Condition: Stable - Instructions Diet, Activity, Other Instructions: PLAN: 1. Hold Lasix in view of worsening renal function, resume once renal fxn stable 2. Continue Carvedilol 3.125 bid 3. Resume Cozaar once renal fxn stabilizes 4. Continue ASA 81 qd 5. Continue Lipitor 20 qhs 6. Antibiotic course as per the primary team, DVT prophylaxis, BD as needed Patient to follow-up with Dr. Cm Liu at [facility] upon D/C SEE DR PUENTE IN 2 DAYS Referrals: Jesus Puente MD [Primary Care Provider] - Disposition: HOME - Home Medications Comprehensive Discharge Medication List: Ambulatory Orders Unobtainable [Unobtainable] 07/18/17
--- NOTE | 2017-07-22 15:54 | PN ---
Progress Note, Physician History of Present Illness: Pt seen and examined at bedside. She is awake and alert. She denies shortness of breath. She is now able to ambulate without oxygen. - Current Medication List Current Medications: Active Medications Acetaminophen (Tylenol -) 650 mg PO Q6H PRN PRN Reason: PAIN LEVEL 4 - 6 Albuterol/Ipratropium (Duoneb -) 1 amp NEB RQID [facility] Last Admin: 07/22/17 15:50 Dose: Not Given Aspirin (Asa -) 81 mg PO DAILY [facility] Last Admin: 07/22/17 11:28 Dose: 81 mg Atorvastatin Calcium (Lipitor -) 20 mg PO HS [facility] Last Admin: 07/21/17 21:17 Dose: 20 mg Carvedilol (Coreg -) 3.125 mg PO BID [facility] Last Admin: 07/22/17 11:28 Dose: 3.125 mg Enoxaparin Sodium (Lovenox -) 40 mg SQ DAILY [facility] Last Admin: 07/22/17 11:28 Dose: 40 mg CEFTRIAXONE 1 G/50 ML PREMIX (Ceftriaxone 1 Gm-D5w Bag) 50 mls @ 100 mls/hr IVPB DAILY [facility] Last Admin: 07/22/17 10:50 Dose: 100 mls/hr Melatonin (Melatonin) 5 mg PO HS PRN PRN Reason: INSOMNIA - Objective Vital Signs: Vital Signs Temperature 98.2 F 07/22/17 09:55 Pulse Rate 90 07/22/17 09:55 Respiratory Rate 18 07/22/17 09:55 Blood Pressure 136/60 07/22/17 09:55 O2 Sat by Pulse Oximetry (%) 96 07/22/17 09:00 Constitutional: Yes: Calm Eyes: Yes: Conjunctiva Clear HENT: Yes: Atraumatic Neck: Yes: Supple Cardiovascular: Yes: S1, S2 Respiratory: Yes: CTA Bilaterally Gastrointestinal: Yes: Soft Musculoskeletal: Yes: WNL Extremities: Yes: WNL Edema: No Neurological: Yes: Oriented Psychiatric: Yes: Oriented Labs: CBC, BMP 07/22/17 06:45 07/22/17 06:45 INR, PTT INR 1.03 (0.82-1.09) 07/20/17 05:40 Problem List - Problems (1) CHF (congestive heart failure) Code(s): I50.9 - HEART FAILURE, UNSPECIFIED Qualifiers: Heart failure type: diastolic Heart failure chronicity: acute on chronic Qualified Code(s): I50.33 - Acute on chronic diastolic (congestive) heart failure (2) SOB (shortness of breath) Code(s): R06.02 - SHORTNESS OF BREATH (3) Acute on chronic renal failure Code(s): N17.9 - ACUTE KIDNEY FAILURE, UNSPECIFIED; N18.9 - CHRONIC KIDNEY DISEASE, UNSPECIFIED Qualifiers: Chronic kidney disease stage: stage 3 (moderate) (4) Acute renal failure Code(s): N17.9 - ACUTE KIDNEY FAILURE, UNSPECIFIED (5) Anemia Code(s): D64.9 - ANEMIA, UNSPECIFIED Qualifiers: Anemia type: due to other cause Other causes of anemia: due to chronic kidney disease (6) CKD (chronic kidney disease) Code(s): N18.9 - CHRONIC KIDNEY DISEASE, UNSPECIFIED Qualifiers: Chronic kidney disease stage: stage 3 (moderate) Qualified Code(s): N18.3 - Chronic kidney disease, stage 3 (moderate) Assessment/Plan Current Medications Generic Name Dose Route Start Last Admin Trade Name Freq PRN Reason Stop Dose Admin Acetaminophen 650 mg 07/20/17 12:53 Tylenol - PO Q6H PRN PAIN LEVEL 4 - 6 Albuterol/Ipratropium 1 amp 07/20/17 16:00 07/22/17 15:50 Duoneb - NEB Not Given RQID NICOLE Aspirin 81 mg 07/21/17 10:00 07/22/17 11:28 Asa - PO 81 mg DAILY NICOLE Administration Atorvastatin Calcium 20 mg 07/20/17 22:00 07/21/17 21:17 Lipitor - PO 20 mg HS NICOLE Administration Carvedilol 3.125 mg 07/20/17 22:00 07/22/17 11:28 Coreg - PO 3.125 mg BID NICOLE Administration Enoxaparin Sodium 40 mg 07/21/17 10:00 07/22/17 11:28 Lovenox - SQ 40 mg DAILY NICOLE Administration CEFTRIAXONE 1 G/50 ML PREMIX 50 mls @ 100 mls/hr 07/21/17 10:00 07/22/17 10: 50 Ceftriaxone 1 Gm-D5w Bag IVPB 100 mls/hr DAILY NICOLE Administration Melatonin 5 mg 07/20/17 12:53 Melatonin PO HS PRN INSOMNIA Impression 1. dyspnea 2. CKD 3. CHF 4. cholesterol 5. copd 6. HTN poorly controlled 7. resp failure requiring bipap Plan - cont current meds - discussed low sodium diet again at length - resume home dose of lasix tomorrow - cont cozaar - will follow Dr Jarquin
[2017-07-22 15:57] VITALS: BP 130/90; TEMP 98.5
== END 2017-07-22 17:02 | disposition home or self-care (01) | DRG 291 ==
LOC: JER 15:05 → JERBED 18:00 → JICU 21:30 → J4W 07-20 13:30
PROVIDERS: ADMIT Internal Medicine; ATTEND Family Medicine
PROC: 5A09457 Assistance with Respiratory Ventilation, 24-96 Consecutive Hours, Continuous Positive Airway Pressure (ICD-10-PCS; principal; 2017-07-18)
PROC: 30233N1 Transfusion of Nonautologous Red Blood Cells into Peripheral Vein, Percutaneous Approach (ICD-10-PCS; 2017-07-19)
DX: I13.0 Hypertensive heart and chronic kidney disease with heart failure and stage 1 through stage 4 chronic kidney disease, or unspecified chronic kidney disease (principal); I50.33 Acute on chronic diastolic (congestive) heart failure; J96.01 Acute respiratory failure with hypoxia; J18.9 Pneumonia, unspecified organism; N17.9 Acute kidney failure, unspecified; J44.9 Chronic obstructive pulmonary disease, unspecified; D63.8 Anemia in other chronic diseases classified elsewhere; K44.9 Diaphragmatic hernia without obstruction or gangrene; E78.5 Hyperlipidemia, unspecified; I48.0 Paroxysmal atrial fibrillation; N28.89 Other specified disorders of kidney and ureter; F41.8 Other specified anxiety disorders; N18.3 Chronic kidney disease, stage 3 (moderate); Z87.891 Personal history of nicotine dependence; Z91.14 Patient's other noncompliance with medication regimen
CPT/HCPCS: 36415; 36430; 36600; 71045-TC-FY; 76775-TC; 76856-TC; 80048; 80053; 81003; 81015; 82272; 82375; 82550; 82553; 82607; 82728; 82747; 82803; 83050; 83540; 83550; 83605; 83735; 83880; 84100; 84439; 84443; 84484; 85014; 85025; 85610; 85730; 86850; 86900; 86901; 86922; 87040; 87086; 93005; 93010; 93306-TC; 94640; 94660; 97116-GP; 97161-GP; 99285-25; P9038; P9058

== ENCOUNTER 2017-08-08 12:19 | Emergency (ER) | payer OTHER, BC ==
[2017-08-08 12:34] VITALS: TEMP 97.8; BMI 27.3
--- NOTE | 2017-08-08 12:55 | PDOC ---
Attending Attestation - Resident Resident Name: EdMarino perez - ED Attending Attestation I have performed the following: I have examined & evaluated the patient, The case was reviewed & discussed with the resident, I agree w/resident's findings & plan, Exceptions are as noted - HPI HPI: 08/08/17 12:54 87y F hx of COPD< CHF, CKD, sent by PMD for evlauation of SOB, pt states she feels fine. Son notes that she is working alittle harder for breathing. no fever/chills, chest pain, abd pain, diarrhea, melena, orthopnea. Pt notes she has a chronic cough productive of whitish sputum but this is unchanged from baseline. per pt they heard 'water;' in her lungs, and she was given lasix at [facility] office. GENERAL: The patient is awake, alert, and fully oriented, Nontoxic - in no acute distress. HEAD: Normocephalic, atraumatic. EYES: extraocular movements intact, sclera anicteric, conjunctiva clear. ENT: Normal voice, Moist mucous membranes. NECK: Normal range of motion, supple LUNGS: Breath sounds equal, clear to auscultation bilaterally. No wheezes, no rhonchi, no rales. Mildly tachypneic HEART: Regular rate and rhythm, normal S1 and S2 without murmur, rub or gallop. ABDOMEN: Soft, nontender, normoactive bowel sounds. No guarding, no rebound. No CVA tenderness EXTREMITIES: Normal range of motion, no edema. NEUROLOGICAL: No facial assymetry, Normal speech, moving all 4 extremities spontaneously and symmetrically, PSYCH: Normal mood, normal affect. SKIN: Warm, Dry, normal turgor, ddx - chf, pna, copd pts lungs clera here - but possible improvement after she got lasix at the PMDs office will ck lbas cxr ekg will reassess - Physicial Exam PE: 08/10/17 07:37 see above - Medical Decision Making 08/08/17 16:36 labs and cxr reviewed pt feeling improved pt ambulatory here without fabiola sob/dyspnea pulm exam clear will dc the pt with pmd fu w/ return precautions and close PMD fu Heart Score/ECG Review - ECG Impressions Comment:: 08/08/17 14:20 Twelve-lead EKG was performed and reviewed by me. There is normal sinus rhythm with a normal rate. Rate of 65 The axis is normal. The intervals are normal. There is normal R wave progression There are no ST or T wave abnormalities. Impression: Normal twelve-lead EKG
[2017-08-08] MEDS ORDERED: FUROSEMIDE 40 MG/4 ML INJECTABLE VIAL IVPUSH ONE (12:58)
[2017-08-08 13:37] LABS: INR 1.04 (0.82-1.09); PROTHROMBIN TIME (PATIENT) 11.7 SEC (9.98-11.88)
--- NOTE | 2017-08-08 13:43 | PDOC ---
History of Present Illness - General Chief Complaint: Congestive Heart Failure Stated Complaint: CHF Time Seen by Provider: 08/08/17 12:32 History Source: Patient Exam Limitations: No Limitations - History of Present Illness Initial Comments: 08/08/17 13:37 Patient is an 87F with history of CHF, COPD, HTN, anemia here today complaining of shortness of breath. She states that she's at her baseline, with worsening in the past few days. Her son states she's had decreased activity and has been sleeping more. She reports compliance with medications. She is coming in today because she was evaluated by a PA at Dr Puente's office who referred her to the ED. Patient denies fevers, chills, nausea, vomiting, pain with urination. Patient denies chest pain and leg swelling. Denies bloody stool. Past History - Past Medical History Allergies/Adverse Reactions: Allergies Allergy/AdvReac Type Severity Reaction Status Date / Time erythromycin base Allergy Verified 08/08/17 12:31 [Erythromycin Base] prednisone AdvReac Verified 08/08/17 12:31 accromycin AdvReac Mild makes pt. Uncoded 08/08/17 12:31 hyper Home Medications: Ambulatory Orders Acetaminophen [Tylenol .Regular Strength -] 650 mg PO Q6H PRN tablet 07/22/17 Albuterol 2.5/Ipratropium 0.5 [Duoneb -] 1 amp NEB RQID amp 07/22/17 Aspirin [ASA -] 81 mg PO DAILY tab.chew 07/22/17 Atorvastatin Ca [Lipitor] 20 mg PO HS tablet 07/22/17 Carvedilol [Coreg -] 3.125 mg PO BID tablet 07/22/17 Melatonin 5 mg PO HS PRN tab 07/22/17 Albuterol Sulfate [Proair Hfa] 8.5 gm IH Q4H 08/08/17 Cetirizine HCl [Zyrtec -] 10 mg PO DAILY 08/08/17 Furosemide 20 mg PO PRN 08/08/17 Montelukast Na [Singulair -] 10 mg PO HS 08/08/17 Olanzapine 5 mg PO DAILY 08/08/17 Sodium Chloride [Saline Nasal Mist] 126 ml NS DAILY 08/08/17 Anemia: Yes Asthma: Yes Cancer: No Cardiac Disorders: No CVA: No COPD: No CHF: Yes Dementia: No Diabetes: No GI Disorders: Yes (LG HIATAL HERNIA) Disorders: No HTN: Yes Hypercholesterolemia: Yes Liver Disease: No Psychiatric Problems: Yes (DEPRESSION) Seizures: No Thyroid Disease: No - Surgical History Abdominal Surgery: Yes (ovary removal) Appendectomy: No Cardiac Surgery: No Cholecystectomy: No Lung Surgery: No Neurologic Surgery: No Orthopedic Surgery: No - Immunization History Immunization Up to Date: Yes - Suicide/Smoking/Psychosocial Hx Smoking Status: No Smoking History: Former smoker Have you smoked in the past 12 months: No Number of Cigarettes Smoked Daily: 0 If you are a former smoker, when did you quit?: 30 years ago Cigars Per Day: 0 Information on smoking cessation initiated: No 'Breaking Loose' booklet given: 11/02/13 Hx Alcohol Use: No Drug/Substance Use Hx: No Substance Use Type: None Hx Substance Use Treatment: No Review of Systems - Review of Systems Comments:: 08/08/17 13:43 GENERAL/CONSTITUTIONAL: No fever or chills. No weakness. HEAD, EYES, EARS, NOSE AND THROAT: No change in vision. No sore throat. CARDIOVASCULAR: No chest pain. Positive for shortness of breath RESPIRATORY: No cough, wheezing, or hemoptysis. GASTROINTESTINAL: No nausea, vomiting, diarrhea or constipation. GENITOURINARY: No dysuria, frequency, or change in urination. MUSCULOSKELETAL: No joint or muscle swelling or pain. No neck or back pain. SKIN: No rash NEUROLOGIC: No headache, vertigo, loss of consciousness, or change in strength/ sensation. ENDOCRINE: No increased thirst. No abnormal weight change HEMATOLOGIC/LYMPHATIC: Positive for anemia ALLERGIC/IMMUNOLOGIC: No hives or skin allergy. *Physical Exam - Vital Signs Last Vital Signs Temp Pulse Resp BP Pulse Ox 97.8 F 61 18 170/80 100 08/08/17 12:32 08/08/17 12:32 08/08/17 12:32 08/08/17 12:32 08/08/17 12:32 - Physical Exam Comments: 08/08/17 13:46 GENERAL: Awake, alert, and fully oriented, tachypneic HEAD: No signs of trauma, normocephalic, atraumatic EYES: PERRLA, EOMI, sclera anicteric, conjunctiva clear ENT: Auricles normal inspection, hearing grossly normal, nares patent, oropharynx clear without exudates. Moist mucosa NECK: Normal ROM, supple, no lymphadenopathy, JVD, or masses LUNGS: No distress, speaks full sentences, crackles bilaterally HEART: Regular rate and rhythm, normal S1 and S2, no murmurs, rubs or gallops, peripheral pulses normal and equal bilaterally. ABDOMEN: Soft, nontender, normoactive bowel sounds. No guarding, no rebound. No masses EXTREMITIES: Normal inspection, Normal range of motion, no edema. No clubbing or cyanosis. NEUROLOGICAL: Cranial nerves II through XII grossly intact. Normal speech, normal gait, no focal sensorimotor deficits SKIN: Warm, Dry, normal turgor, no rashes or lesions noted. ED Treatment Course - LABORATORY CBC & Chemistry Diagram: 08/08/17 13:12 08/08/17 13:12 - RADIOLOGY Radiology Studies Ordered: Category Date Time Status CHEST X-RAY PORTABLE* [RAD] Stat Radiology 08/08/17 12:56 Ordered Medical Decision Making - Medical Decision Making 08/08/17 13:49 Patient is an 87F with history of copd, htn, chf, anemia here today complaining of shortness of breath. Vital signs stable. History and exam concerning for heart failure exacerbation. Differential diagnosis also includes: UTI, pneumonia , COPD exacerbation. Bedside ultrasound shows B lines bilaterally with normal lung sliding. EKG shows normal sinus rhythm with rate of 65. Normal axis. No st elevations/ depressions. No significant wave abnormalities. Normal [place]/QRS/QTc intervals. 08/08/17 15:06 Laboratory Tests 08/08/17 08/08/17 08/08/17 13:12 13:12 13:12 WBC 8.7 Hgb 9.9 L D Hct 30.4 L Plt Count 348 INR 1.04 BUN 35 H Creatinine 1.6 H Troponin I < 0.02 B-Natriuretic Peptide 492.65 H CBC normal. INR normal. Cr at baseline. Troponin undetectable. BNP slightly elevated, but well below prior admissions. CXR shows no acute cardiopulmonary process. Patient reassessed, states that she feels better. Walked in the ED, reports less shortness of breath, satting 100%. Wants to go home. PA from Dr Puente's office contacted, apprised of results, ok with sending patient home. Will discharge with instructions to follow up with Dr Puente and return precautions. *DC/Admit/Observation/Transfer Diagnosis at time of Disposition: CHF (congestive heart failure) - Discharge Dispostion Disposition: HOME Condition at time of disposition: Good Admit: No - Referrals Referrals: Jesus Puente MD [Primary Care Provider] - - Patient Instructions Printed Discharge Instructions: DI for Heart Failure Additional Instructions: Please call Dr Puente today to make an appointment for further follow up. Please return if you have any new, worsening or concerning symptoms. - Post Discharge Activity
[2017-08-08 13:50] LABS: BASO % 0.9 % (0-2.0); HEMATOCRIT 30.4 % (32.4-45.2); HEMOGLOBIN 9.9 GM/dL (10.7-15.3); LYMPH % 8.2 % (8-40); MCH 27.6 pg (25.7-33.7); MCHC 32.6 g/dl (32.0-36.0); MEAN CELL VOLUME 84.8 fl (80-96); MEAN PLT VOLUME 8.7 fl (7.5-11.1); MONO % 5.4 % (3.8-10.2); NEUT % 82.5 % (42.8-82.8); PLATELET COUNT 348 K/MM3 (134-434); RBC 3.58 M/mm3 (3.60-5.2); RDW 17.2 % (11.6-15.6); WHITE BLOOD COUNT 8.7 K/mm3 (4.0-10.0)
[2017-08-08 13:51] LABS: ALBUMIN 3.5 g/dl (3.4-5.0); ANION GAP 11 (8-16); BILIRUBIN,TOTAL 0.4 mg/dL (0.2-1.0); BLOOD UREA NITROGEN 35 mg/dL (7-18); CALCIUM 9.3 mg/dL (8.5-10.1); CHLORIDE 106 mmol/L (98-107); CO2 25 mmol/L (21-32); CREATININE 1.6 mg/dL (0.55-1.02); GLUCOSE,RANDOM 90 mg/dL (74-106); MAGNESIUM 2.2 mg/dL (1.8-2.4); SGOT/AST 13 U/L (15-37); SGPT/ALT 23 U/L (12-78); SODIUM 142 mmol/L (136-145); TOT PROT 6.6 g/dl (6.4-8.2)
[2017-08-08 13:53] LABS: ALK PHOS 86 U/L (45-117); N-TERMINAL BNP 492.65 pg/ml (5-450)
--- NOTE | 2017-08-08 14:32 | EKG ---
Test Reason : Blood Pressure : / mmHG Vent. Rate : 065 BPM Atrial Rate : 065 BPM P-R Int : 198 ms QRS Dur : 076 ms QT Int : 396 ms P-R-T Axes : 036 014 032 degrees QTc Int : 411 ms POOR DATA QUALITY, INTERPRETATION MAY BE ADVERSELY AFFECTED NORMAL SINUS RHYTHM NORMAL ECG WHEN COMPARED WITH ECG OF 18-JUL-2017 17:21, PREMATURE ATRIAL COMPLEXES ARE NO LONGER PRESENT QT HAS SHORTENED Confirmed by JULISSA POLLARD, ANGELA ([id number]) on 08/08/2017 2:32:31 PM Referred By: Confirmed By:ANGELA COSTA MD
[2017-08-08 15:15] VITALS: BP 157/74; PULSE 71
== END 2017-08-08 15:15 | disposition home or self-care (01) ==
LOC: JER 12:19
PROC: 3E033GC Introduction of Other Therapeutic Substance into Peripheral Vein, Percutaneous Approach (ICD-10-PCS; principal; 2017-08-08)
DX: I50.9 Heart failure, unspecified (principal); I10 Essential (primary) hypertension; J44.9 Chronic obstructive pulmonary disease, unspecified; J45.909 Unspecified asthma, uncomplicated; E78.00 Pure hypercholesterolemia, unspecified; K44.9 Diaphragmatic hernia without obstruction or gangrene; F32.9 Major depressive disorder, single episode, unspecified; Z86.2 Personal history of diseases of the blood and blood-forming organs and certain disorders involving the immune mechanism; Z88.8 Allergy status to other drugs, medicaments and biological substances; Z87.891 Personal history of nicotine dependence
CPT/HCPCS: 36415; 71045-TC-FY; 80053; 82550; 83735; 83880; 84484; 85025; 85610; 86850; 86900; 86901; 93005; 93010; 99285-25

== ENCOUNTER 2017-10-07 07:18 | Day surgery (SDC) | payer OTHER, BC ==
[2017-10-07] MEDS ORDERED: IRON SUCROSE INJECTION 200 MG in SODIUM CHLORIDE 100 ML IVPB ONE (11:30)
[2017-10-07 12:27] VITALS: TEMP 97.6
[2017-10-07 12:36] VITALS: BP 161/88; PULSE 70
== END 2017-10-07 11:45 | disposition home or self-care (01) ==
LOC: JONCNONCHE 07:18 → J7W 10:52 → JONCNONCHE 11:45
PROVIDERS: ATTEND Internal Medicine Hematology & Oncology
PROC: 3E033GC Introduction of Other Therapeutic Substance into Peripheral Vein, Percutaneous Approach (ICD-10-PCS; principal; 2017-10-07)
DX: D50.9 Iron deficiency anemia, unspecified (principal)
CPT/HCPCS: 96365; J1756

== ENCOUNTER 2017-10-16 07:39 | Day surgery (SDC) | payer OTHER, BC ==
[2017-10-16] MEDS ORDERED: IRON SUCROSE INJECTION 200 MG in SODIUM CHLORIDE 100 ML IVPB ONE (11:30)
[2017-10-16 17:41] VITALS: BP 150/62; PULSE 55
[2017-10-16 17:42] VITALS: TEMP 97.7
== END 2017-10-16 11:45 | disposition home or self-care (01) ==
LOC: JONCNONCHE 07:39 → J7W 10:53 → JONCNONCHE 11:45
PROVIDERS: ATTEND Internal Medicine Hematology & Oncology
PROC: 3E033GC Introduction of Other Therapeutic Substance into Peripheral Vein, Percutaneous Approach (ICD-10-PCS; principal; 2017-10-16)
DX: D50.9 Iron deficiency anemia, unspecified (principal)
CPT/HCPCS: 96365; J1756

== ENCOUNTER 2017-10-22 07:44 | Day surgery (SDC) | payer OTHER, BC ==
[2017-10-22 09:49] VITALS: TEMP 97.6
[2017-10-22] MEDS ORDERED: IRON SUCROSE INJECTION 200 MG in SODIUM CHLORIDE 100 ML IVPB ONE (11:00)
[2017-10-22 11:24] VITALS: BP 152/87; PULSE 55
== END 2017-10-22 11:26 | disposition home or self-care (01) ==
LOC: JONCNONCHE 07:44 → J7W 09:50 → JONCNONCHE 11:26
PROVIDERS: ATTEND Internal Medicine Hematology & Oncology
PROC: 3E033GC Introduction of Other Therapeutic Substance into Peripheral Vein, Percutaneous Approach (ICD-10-PCS; principal; 2017-10-22)
DX: D50.9 Iron deficiency anemia, unspecified (principal)
CPT/HCPCS: 96365; J1756

== ENCOUNTER 2019-06-11 12:52 | Inpatient (IN) | payer OTHER, BC ==
--- NOTE | 2019-06-11 13:07 | PDOC ---
Rapid Medical Evaluation Time Seen by Provider: 06/11/19 13:02 Medical Evaluation: Allergies Allergy/AdvReac Type Severity Reaction Status Date / Time erythromycin base Allergy Verified 08/08/17 12:31 [Erythromycin Base] prednisone AdvReac Verified 08/08/17 12:31 accromycin AdvReac Mild makes pt. Uncoded 08/08/17 12:31 hyper 06/11/19 13:02 CC: sent by PMD for weakness PE: labored breathing, pallor noted Orders: labs, cxr, type and screen, ekg The patient will proceed to ED for continued evaluation. Discharge Disposition - Diagnosis Anemia - Referrals - Patient Instructions - Post Discharge Activity
[2019-06-11 13:51] LABS: EOS % 2.8 % (0-4.5); HEMATOCRIT 19.7 % (32.4-45.2); LYMPH % 4.6 % (8-40); MCH 23.7 pg (25.7-33.7); MCHC 30.3 g/dl (32.0-36.0); MEAN CELL VOLUME 78.1 fl (80-96); MEAN PLT VOLUME 7.5 fl (7.5-11.1); MONO % 8.6 % (3.8-10.2); PLATELET COUNT 448 K/MM3 (134-434); RBC 2.53 M/mm3 (3.60-5.2); RDW 16.6 % (11.6-15.6); WHITE BLOOD COUNT 10.5 K/mm3 (4.0-10.0)
[2019-06-11 14:02] LABS: INR 1.02 (0.83-1.09)
[2019-06-11 14:04] LABS: ACTIVATED PTT 24.3 SECONDS (25.2-36.5)
--- NOTE | 2019-06-11 14:09 | PDOC ---
Documentation entered by Yenny Sheppard SCRIBE, acting as scribe for Edison Landrum MD. Edison Landrum MD: This documentation has been prepared by the Valarie soliman Brenda, SCRIBE, under my direction and personally reviewed by me in its entirety. I confirm that the documentation accurately reflects all work, treatment, procedures, and medical decision making performed by me. Attending Attestation - Resident Resident Name: Lencho Che - ED Attending Attestation I have performed the following: I have examined & evaluated the patient, The case was reviewed & discussed with the resident, I agree w/resident's findings & plan, Exceptions are as noted - HPI HPI: 06/11/19 14:09 88 F with h/o CHF, COPD, HTN, anemia, CKD, presenting to ED for abnormal labs. Pt states that she has been feeling weak for the past 2 weeks. Denies any CP/ SOB. She went to her PMD who checked labs and found her Hb to be 5.8. Pt denies any h/o GI bleed or any other bleed. Is on baby aspirin, no other AC. No dark stools or BRBPR. - Physicial Exam PE: 06/11/19 14:11 "GENERAL: Awake, alert, and fully oriented, in no acute distress. HEAD: No signs of trauma EYES: PERRLA, EOMI, sclera anicteric, conjunctiva clear ENT: Auricles normal inspection, hearing grossly normal, nares patent, oropharynx clear without exudates. Moist mucosa NECK: Nontender, no stepoffs, Normal ROM, supple, no lymphadenopathy, JVD, or masses LUNGS: Breath sounds equal, clear to auscultation bilaterally. No wheezes, and no crackles HEART: Regular rate and rhythm, normal S1 and S2, no murmurs, rubs or gallops ABDOMEN: Soft, nontender, normoactive bowel sounds. No guarding, no rebound. No masses EXTREMITIES: Normal range of motion, no edema. No clubbing or cyanosis. No cords, erythema, or tenderness NEUROLOGICAL: Cranial nerves II through XII intact. 5/5 strength and sensation in all extremities, Normal speech, normal gait, normal cerebellar function SKIN: Warm, Dry, normal turgor, no rashes or lesions noted. - Medical Decision Making 06/11/19 14:11 88 F with generalized weakness, found to be anemic on outpt labs. - Labs, T&S - Stool guaiac - Transfuse PRN - Admit
--- NOTE | 2019-06-11 14:10 | PDOC ---
History of Present Illness - General Chief Complaint: Blood Transfusion Stated Complaint: SENT BY PCP Time Seen by Provider: 06/11/19 13:02 History Source: Patient, Family Exam Limitations: No Limitations - History of Present Illness Initial Comments: 06/11/19 14:07 Monica Singh is an 88F with PMH HTN, COPD, sent from Dr. Puente's office for shortness of breath and Hgb 5.7. Patient and son at bedside. Per both, has been feeling weakness and SOB for the last few weeks. Thought it was COPD, went to see Dr. Puente yesterday, got blood works done. Today results show Hgb 5.7, instructed to come to ED. Patient denies chest pain or palpitations, but says she is short of breath and weak. Has never had weakness of anemia in the past. Denies any rectal bleeding or blood in stools, abdominal pain, nausea/vomiting, fever/chills. PO intake is good, no loss of appetite, no weight loss. Does not remember if she has had a blood transfusion before. Past History - Past Medical History Allergies/Adverse Reactions: Allergies Allergy/AdvReac Type Severity Reaction Status Date / Time erythromycin base Allergy Verified 06/11/19 13:07 [Erythromycin Base] prednisone AdvReac Verified 06/11/19 13:07 accromycin AdvReac Mild makes pt. Uncoded 06/11/19 13:07 hyper Home Medications: Ambulatory Orders Acetaminophen [Tylenol .Regular Strength -] 650 mg PO Q6H PRN tablet 07/22/17 Albuterol 2.5/Ipratropium 0.5 [Duoneb -] 1 amp NEB RQID amp 07/22/17 Aspirin [ASA -] 81 mg PO DAILY tab.chew 07/22/17 Atorvastatin Ca [Lipitor] 20 mg PO HS tablet 07/22/17 Carvedilol [Coreg -] 3.125 mg PO BID tablet 07/22/17 Melatonin 5 mg PO HS PRN tab 07/22/17 Albuterol Sulfate [Proair Hfa] 8.5 gm IH Q4H 08/08/17 Cetirizine HCl [Zyrtec -] 10 mg PO DAILY 08/08/17 Furosemide 20 mg PO PRN 08/08/17 Montelukast Na [Singulair -] 10 mg PO HS 08/08/17 Olanzapine 5 mg PO DAILY 08/08/17 Sodium Chloride [Saline Nasal Mist] 126 ml NS DAILY 08/08/17 Anemia: Yes Asthma: Yes Cancer: No Cardiac Disorders: No CVA: No COPD: No CHF: Yes Dementia: No Diabetes: No GI Disorders: Yes (LG HIATAL HERNIA) Disorders: No HTN: Yes Hypercholesterolemia: Yes Liver Disease: No Psychiatric Problems: Yes (DEPRESSION) Seizures: No Thyroid Disease: No - Surgical History Abdominal Surgery: Yes (ovary removal) Appendectomy: No Cardiac Surgery: No Cholecystectomy: No Lung Surgery: No Neurologic Surgery: No Orthopedic Surgery: No - Immunization History Immunization Up to Date: Yes - Psycho Social/Smoking Cessation Hx Smoking Status: No Smoking History: Never smoked Have you smoked in the past 12 months: No Number of Cigarettes Smoked Daily: 0 If you are a former smoker, when did you quit?: 30 years ago Cigars Per Day: 0 'Breaking Loose' booklet given: 11/02/13 Hx Alcohol Use: No Drug/Substance Use Hx: No Substance Use Type: None Hx Substance Use Treatment: No Review of Systems - Review of Systems Able to Perform ROS?: Yes Constitutional: Yes: Weakness. No: Chills, Fever, Loss of Appetite HEENTM: No: Symptoms Reported Respiratory: No: Cough, Shortness of Breath, Wheezing, Productive cough Cardiac (ROS): No: Chest Pain, Irregular Heart Rate, Lightheadedness, Palpitations ABD/GI: No: Constipated, Diarrhea, Difficulty Swallowing, Nausea, Vomiting : No: Symptoms Reported Musculoskeletal: No: Symptoms Reported Integumentary: No: Symptoms Reported Neurological: Yes: Weakness. No: Headache, Numbness, Dizziness Endocrine: No: Symptoms Reported Hematologic/Lymphatic: Yes: Anemia All Other Systems: Reviewed and Negative *Physical Exam - Vital Signs Last Vital Signs Temp Pulse Resp BP Pulse Ox 97.6 F 90 24 H 189/70 H 99 06/11/19 13:03 06/11/19 13:03 06/11/19 13:03 06/11/19 13:03 06/11/19 13:03 - Physical Exam General Appearance: Yes: Nourished, Appropriately Dressed. No: Apparent Distress HEENT: positive: EOMI, SARAH, Normal Voice, Pharynx Normal, Hearing Decreased. negative: Scleral Icterus (R), Scleral Icterus (L), Pharyngeal Erythema, Tonsillar Exudate, Tonsillar Erythema Neck: positive: Trachea midline, Normal Thyroid, Supple. negative: Tender, Rigid, Lymphadenopathy (R), Lymphadenopathy (L), Tender lateral, Tender midline Respiratory/Chest: positive: Wheezing. negative: Chest Tender, Respiratory Distress, Accessory Muscle Use, Labored Respiration, Crackles, Rales, Rhonchi Cardiovascular: positive: Regular Rhythm, Regular Rate. negative: Murmur Gastrointestinal/Abdominal: positive: Normal Bowel Sounds, Flat, Soft. negative : Tender, Organomegaly, Pulsatile Mass, Guarding, Rebound Rectal Exam: positive: normal exam, normal rectal tone. negative: melena, hemorrhoids Musculoskeletal: positive: Normal Inspection. negative: CVA Tenderness, Vertebral Tenderness Extremity: positive: Normal Capillary Refill, Normal Inspection, Normal Range of Motion, Pelvis Stable. negative: Tender Integumentary: positive: Dry, Warm, Pale (pale under eyelids) Neurologic: positive: Fully Oriented, Alert, Normal Mood/Affect, Normal Response , Motor Strength 09/21 ED Treatment Course - LABORATORY CBC & Chemistry Diagram: 06/11/19 13:33 06/11/19 13:33 - ADDITIONAL ORDERS Additional order review: Laboratory Results 06/11/19 06/11/19 13:33 13:33 PT with INR 12.00 INR 1.02 PTT (Actin FS) 24.3 L Crossmatch See Detail 06/11/19 13:33 RBC 2.53 L MCV 78.1 L MCHC 30.3 L RDW 16.6 H MPV 7.5 D Neutrophils % 83.0 H Lymphocytes % 4.6 L D Monocytes % 8.6 Eosinophils % 2.8 Basophils % 1.0 Medical Decision Making - Medical Decision Making 06/11/19 14:39 Patient is an 88F presenting with weakness and SOB with known PMD labs showing Hgb 5.7, here for blood transfusion. Patient appears pale and says she is short of breath but is satting well on RA and speaking in full sentences. Denies chest pain or palpitations, has good motor strength. - CMP for lyte eval - CBC for anemia eval - 2x TS for blood transfusion - Iron studies for anemia eval - FOBT for eval microscopic bleeding - CXR/ECG for cardiac/lung eval and admission - Giving 1 amp Duonebs for COPD, mild wheezing 06/11/19 14:44 Labs notable for: - Hgb 6.0, still meets criteria for transfusion pending TS. - FOBT negative - CMP WNL ECG shows NSR with HR 82, QRS 84, QTc 441, some PACs and no ischemic changes or TWI. 06/11/19 16:55 Discussed case with [employer] rodolfo Ramires for admission to Med Surg for blood transfusion and anemia evaluation. 06/11/19 19:03 Family at bedside requesting BP control and cardiac monitoring. Will give home meds and put on monitor. Signed out tonight team, plan for admission and going upstairs, nothing else to do. Discharge - Discharge Information Problems reviewed: Yes Clinical Impression/Diagnosis: Anemia Qualifiers: Anemia type: unspecified type Qualified Code(s): D64.9 - Anemia, unspecified Condition: Stable - Admission Yes - Follow up/Referral Referrals: Jesus Puente MD [Primary Care Provider] - - Patient Discharge Instructions - Post Discharge Activity
[2019-06-11] MEDS ORDERED: ALBUTEROL SO4 2.5/IPRATROPIUM 0.5 INH SOL 3 ML VIAL.NEB. NEB ONE ×2 (14:35→15:10)
[2019-06-11 14:37] LABS: BILIRUBIN,TOTAL 0.2 mg/dL (0.2-1); BLOOD UREA NITROGEN 22.4 mg/dL (7-18); CALCIUM 8.4 mg/dL (8.5-10.1); CREATININE 1.1 mg/dL (0.55-1.3); POTASSIUM 3.9 mmol/L (3.5-5.1); TOT PROT 6.2 g/dl (6.4-8.2)
[2019-06-11 14:47] LABS: IRON SERUM 12 ug/dL (50-175); TOTAL IRON BINDING CAPACITY 391 ug/dL (250-450)
[2019-06-11] MEDS ORDERED: ACETAMINOPHEN 325 MG TABLET (FP) PO PRN (16:47)
[2019-06-11] MEDS ORDERED: CARVEDILOL 3.125 MG TABLET (FP) PO ONE (19:13)
[2019-06-11] MEDS: ALBUTEROL SO4 2.5/IPRATROPIUM 0.5 INH SOL 3 ML VIAL.NEB. NEB SCH (21:13)
[2019-06-11] MEDS: CARVEDILOL 3.125 MG TABLET (FP) PO SCH (21:13)
[2019-06-11] MEDS: MONTELUKAST NA 10 MG TABLET PO SCH (23:38)
[2019-06-11] MEDS: ATORVASTATIN CA 20 MG TABLET (FP) PO SCH (23:38)
[2019-06-12] MEDS: MELATONIN 5 MG TABLETS PO PRN ×2 (00:06→22:22)
[2019-06-12] MEDS ORDERED: ALBUTEROL SO4 2.5/IPRATROPIUM 0.5 INH SOL 3 ML VIAL.NEB. NEB PRN (05:29)
[2019-06-12] MEDS ORDERED: HALOPERIDOL LACTATE 5 MG/ML IM ONE (05:29)
[2019-06-12] MEDS ORDERED: methylPREDNISolone NA SUCC 40 MG/1 ML VIAL IVPUSH ONE (05:30)
[2019-06-12] MEDS ORDERED: HALOPERIDOL LACTATE 5 MG/ML ONE (05:34)
[2019-06-12] MEDS ORDERED: FUROSEMIDE 40 MG/4 ML INJECTABLE VIAL IVPUSH ONE (05:37)
[2019-06-12] MEDS ORDERED: FUROSEMIDE 40 MG/4 ML INJECTABLE VIAL ONE (05:40)
[2019-06-12 05:51] LABS: ARTERIAL BLD GAS O2 SATURATION 79.3 % (95-98); ARTERIAL BLOOD GAS BASE EXCESS -12.9 meq/l (-2-2); ARTERIAL BLOOD GAS PCO2 64.3 mmHg (35-45); ARTERIAL BLOOD GAS PO2 62.7 mmHg (80-100)
--- NOTE | 2019-06-12 05:51 | RAPID ---
Physical Examination Vital Signs: Vital Signs Temperature 98.9 F 06/11/19 23:30 Pulse Rate 77 06/11/19 23:30 Respiratory Rate 20 06/11/19 23:30 Blood Pressure 159/88 06/11/19 23:30 O2 Sat by Pulse Oximetry (%) 97 06/11/19 23:30 Findings/Remarks: scallop binder team responded to rapid response called at 05:15 Subjective: Patient found to be sitting in bed, tachypnic, in acute distress, not complaining of chest pain. As per chart review, was admitted earlier today after she was found to be anemic at Hg 5.8 at PCP's office, underwent 2 PRBC transfusions earlier today. Objective: Vitals on presentation: - BP 162/97 - HR 112 - O2 90% on RA Physical exam: - AOx3, in acute distress, SOB - Lungs: B/L coarse crackles and wheezes - CVS: Tachycardic with regular rate and rhythm - Abdomen: Soft, non tender, non distended Assessment and Plan: - DD's: COPD exacerbation, TRALI, TACO, flash edema - EKG ordered - CXR ordered - ABGs ordered - Halidol 5mg and Benadryl 25mg to alleviate agitation - CBC, CMP, BNP stat - Lasix 40mg and Duonebs for symptomatic relief - Solu-Medrol 60mg - CXR ordered - Started on BiPAP IPAP 16 EPAP 8 Labs: CBC, BMP 06/11/19 13:33 06/11/19 13:33
[2019-06-12 05:52] LABS: ALLENS TEST POSITIVE
[2019-06-12 06:08] LABS: ARTERIAL BLOOD GAS pH 7.06 (7.35-7.45)
[2019-06-12] MEDS: ALBUTEROL SO4 2.5/IPRATROPIUM 0.5 INH SOL 3 ML VIAL.NEB. NEB SCH ×4 (06:12→20:07)
[2019-06-12 06:55] LABS: BASO % 1.2 % (0-2.0); EOS % 1.7 % (0-4.5); HEMATOCRIT 31.3 % (32.4-45.2); HEMOGLOBIN 9.8 GM/dL (10.7-15.3); LYMPH % 6.5 % (8-40); MCH 26.2 pg (25.7-33.7); MCHC 31.5 g/dl (32.0-36.0); MEAN CELL VOLUME 83.1 fl (80-96); MEAN PLT VOLUME 7.8 fl (7.5-11.1); MONO % 6.6 % (3.8-10.2); PLATELET COUNT 498 K/MM3 (134-434); RBC 3.76 M/mm3 (3.60-5.2); RDW 18.3 % (11.6-15.6)
[2019-06-12 07:34] LABS: ALBUMIN 2.7 g/dl (3.4-5.0); BILIRUBIN,TOTAL 1.3 mg/dL (0.2-1); BLOOD UREA NITROGEN 27.3 mg/dL (7-18); CALCIUM 8.4 mg/dL (8.5-10.1); CREATININE 1.6 mg/dL (0.55-1.3); MAGNESIUM 2.3 mg/dL (1.8-2.4); N-TERMINAL BNP 5155.8 pg/ml (5-450); TOT PROT 5.9 g/dl (6.4-8.2)
[2019-06-12 08:00] LABS: ARTERIAL BLD GAS O2 SATURATION 95.3 % (95-98); ARTERIAL BLOOD GAS BASE EXCESS -7.7 meq/l (-2-2); ARTERIAL BLOOD GAS PCO2 36.1 mmHg (35-45); ARTERIAL BLOOD GAS PO2 84.5 mmHg (80-100); ARTERIAL BLOOD GAS pH 7.31 (7.35-7.45)
[2019-06-12 08:01] LABS: ALLENS TEST POSITIVE
--- NOTE | 2019-06-12 09:17 | HP ---
Admitting History and Physical - Admission History of Present Illness: 88 F with h/o CHF, COPD, HTN, anemia, CKD, presenting to ED for abnormal labs. Pt states that she has been feeling weak for the past 2 weeks. Denies any CP/ SOB. She went to her PMD who checked labs and found her Hb to be 5.8. Pt denies any h/o GI bleed or any other bleed. Is on baby aspirin, no other AC. No dark stools or BRBPR. - Past Medical History Cardiovascular: Yes: AFIB (paroxysmal ), CHF, HTN, Hyperlipdemia Pulmonary: Yes: COPD Gastrointestinal: Yes: Hiatal Hernia Renal/: Yes: Renal Failure, Renal Inusuff, Other (benign renal mass) Heme/Onc: Yes: Anemia Psych: Yes: Anxiety, Depression - Smoking History Smoking history: Never smoked Have you smoked in the past 12 months: No Aproximately how many cigarettes per day: 0 If you are a former smoker, when did you quit?: 30 years ago - Alcohol/Substance Use Hx Alcohol Use: No History of Substance Use: reports: None - Social History History of Recent Travel: No Home Medications - Allergies Allergies/Adverse Reactions: Allergies Allergy/AdvReac Type Severity Reaction Status Date / Time erythromycin base Allergy Verified 06/11/19 13:07 [Erythromycin Base] prednisone AdvReac Verified 06/11/19 13:07 accromycin AdvReac Mild makes pt. Uncoded 06/11/19 13:07 hyper - Home Medications Home Medications: Ambulatory Orders Aspirin [ASA -] 81 mg PO DAILY tab.chew 07/22/17 Atorvastatin Ca [Lipitor] 20 mg PO HS tablet 07/22/17 Carvedilol [Coreg -] 3.125 mg PO BID tablet 07/22/17 Melatonin 5 mg PO HS PRN tab 07/22/17 Losartan Potassium 50 mg PO DAILY 06/11/19 Furosemide [Lasix] 20 PO DAILY 06/12/19 Review of Systems - Review of Systems Cardiovascular: denies: Chest Pain Respiratory: reports: SOB, SOB on Exertion Gastrointestinal: denies: Abdominal Pain Physical Examination Vital Signs: Vital Signs Temperature 98.6 F 06/12/19 06:06 Pulse Rate 122 H 06/12/19 08:14 Respiratory Rate 06/12/19 06:06 Blood Pressure 163/92 06/12/19 06:06 O2 Sat by Pulse Oximetry (%) 92 L 06/12/19 08:14 Cardiovascular: Yes: S1, S2 Respiratory: Yes: Diminished, On BiPap. No: Rales, Wheezes Gastrointestinal: Yes: Normal Bowel Sounds, Soft Labs: CBC, BMP 06/12/19 06:40 06/12/19 06:40 Problem List - Problems (1) Anemia Assessment/Plan: s/p prbc follow labs gi and hem consult Laboratory Tests 06/11/19 06/12/19 13:33 06:40 Hgb 6.0 L* 9.8 L Code(s): D64.9 - ANEMIA, UNSPECIFIED Qualifiers: Anemia type: iron deficiency Iron deficiency anemia type: chronic blood loss Qualified Code(s): D50.0 - Iron deficiency anemia secondary to blood loss (chronic) (2) CHF (congestive heart failure) Assessment/Plan: no evidence of failure follow labs Code(s): I50.9 - HEART FAILURE, UNSPECIFIED Qualifiers: (3) CKD (chronic kidney disease) Assessment/Plan: cr 1.6 follow up labs Code(s): N18.9 - CHRONIC KIDNEY DISEASE, UNSPECIFIED Qualifiers: Chronic kidney disease stage: stage 3 (moderate) Qualified Code(s): N18.3 - Chronic kidney disease, stage 3 (moderate) (4) COPD (chronic obstructive pulmonary disease) Assessment/Plan: nebs pulm consult bipap as tolerated Code(s): J44.9 - CHRONIC OBSTRUCTIVE PULMONARY DISEASE, UNSPECIFIED Qualifiers: COPD type: unspecified COPD Qualified Code(s): J44.9 - Chronic obstructive pulmonary disease, unspecified
[2019-06-12] MEDS ORDERED: PNEUMOC 13-VAL CONJ-DIP CRM/PF 0.5 ML DISP.SYRIN IM ONE (10:00)
[2019-06-12] MEDS ORDERED: ASPIRIN 81 MG CHEWABLE TABLETS PO SCH (10:00)
--- NOTE | 2019-06-12 10:12 | CONSULT ---
Consultation: REQUESTING PROVIDER:primary team CONSULT REQUEST: We have been asked to medically evaluate this patient for ( anemia ). HISTORY OF PRESENT ILLNESS: 88 year old female with pmhx of HTN , HLD, COPD, DCHF , renal insufficiency, renal cyst, anemia , Osteoporosis , CAD, anxiety, depression was send to ED by her pcp due to low hgb 5.8. pt denies any fever , chills, N/V/D/C she reports generalized weakness, fatigue , sob , palpitation and light headedness for last 3 weeks , refuse to come to the hospital denies any blood in stool or urine , denies any black stool or melena , she is on ASA 81 mg daily. IN Ed iron studies initiated, recived 2 units PRBC and hgb improved to 8.9 PMHx: as HPI PSHx: H/O Goiter with partial thyroidectomy, total abdominal hysterectomy, , one ovary left ,urogyn surgery bladder repair. Shx: former smoker rom 15 till 58 3ppd , denies alcohol or drugs REVIEW OF SYSTEMS: CONSTITUTIONAL: Absent: fever, chills, diaphoresis, generalized weakness, malaise, loss of appetite, weight change HEENT: Absent: rhinorrhea, nasal congestion, throat pain, throat swelling, difficulty swallowing, mouth swelling, ear pain, eye pain, visual changes CARDIOVASCULAR: Absent: chest pain, syncope, palpitations, irregular heart rate, lightheadedness , peripheral edema RESPIRATORY: Absent: cough, shortness of breath, dyspnea with exertion, orthopnea, wheezing, stridor, hemoptysis GASTROINTESTINAL: Absent: abdominal pain, abdominal distension, nausea, vomiting, diarrhea, constipation, melena, hematochezia GENITOURINARY: Absent: dysuria, frequency, urgency, hesitancy, hematuria, flank pain, genital pain MUSCULOSKELETAL: Absent: myalgia, arthralgia, joint swelling, back pain, neck pain SKIN: Absent: rash, itching, pallor HEMATOLOGIC/IMMUNOLOGIC: Absent: easy bleeding, easy bruising, lymphadenopathy, frequent infections ENDOCRINE: Absent: unexplained weight gain, unexplained weight loss, heat intolerance, cold intolerance NEUROLOGIC: Absent: headache, focal weakness or paresthesias, dizziness, unsteady gait, seizure, mental status changes, bladder or bowel incontinence PSYCHIATRIC: Absent: anxiety, depression, suicidal or homicidal ideation, hallucinations. PHYSICAL EXAMINATION Vital Signs - 24 hr 06/11/19 06/11/19 06/11/19 13:03 16:02 16:45 Temperature 97.6 F 97.9 F 97.9 F Pulse Rate 90 Pulse Rate [ 96 H 100 H Apical] Pulse Rate [ Left Radial] Respiratory 24 H 19 20 Rate Blood Pressure 189/70 H Blood Pressure [Left Arm] Blood Pressure 182/71 H 176/66 H [Right Arm] O2 Sat by Pulse 99 99 100 Oximetry (%) 06/11/19 06/11/19 06/11/19 17:28 18:00 18:58 Temperature 98.3 F 98.0 F 98.2 F Pulse Rate Pulse Rate [ 103 H 98 H 94 H Apical] Pulse Rate [ Left Radial] Respiratory 19 19 19 Rate Blood Pressure Blood Pressure [Left Arm] Blood Pressure 227/83 H 228/85 H 191/74 H [Right Arm] O2 Sat by Pulse 99 99 98 Oximetry (%) 06/11/19 06/11/19 06/11/19 19:20 21:32 21:47 Temperature 99.4 F 99.7 F H Pulse Rate Pulse Rate [ 97 H Apical] Pulse Rate [ 79 84 Left Radial] Respiratory 18 18 20 Rate Blood Pressure Blood Pressure 198/67 H 149/66 [Left Arm] Blood Pressure 163/67 [Right Arm] O2 Sat by Pulse 96 98 Oximetry (%) 06/11/19 06/12/19 06/12/19 23:30 06:06 08:14 Temperature 98.9 F 98.6 F Pulse Rate 77 132 H 122 H Pulse Rate [ Apical] Pulse Rate [ Left Radial] Respiratory 20 20 Rate Blood Pressure 159/88 163/92 Blood Pressure [Left Arm] Blood Pressure [Right Arm] O2 Sat by Pulse 97 92 L Oximetry (%) GENERAL: Awake, alert, and fully oriented, in mild respiratory distress. HEAD: Normal with no signs of trauma.on NC EYES: Pupils equal, round and reactive to light, extraocular movements intact, EARS, NOSE, THROAT: Ears normal, nares patent, oropharynx clear without exudates. dry mucous membranes.no oral thrush or mucocytis NECK: supple without lymphadenopathy LUNGS: diffuse expiratory wheezing HEART: Regular rate and rhythm, normal S1 and S2 without murmur, rub or gallop. ABDOMEN: Soft, nontender, not distended, normoactive bowel sounds, LOWER EXTREMITIES: 2+ pulses, warm, well-perfused. No calf tenderness. No peripheral edema. NEUROLOGICAL: Cranial nerves II-XII intact. Normal speech. PSYCHIATRIC: Cooperative. SKIN: Warm, dry, normal turgor, erythema beneath right breast, anterior abdomen surgical scar , small keratosis coin size in the abdomen Laboratory Results - last 24 hr 06/11/19 06/11/19 06/11/19 13:33 13:33 13:33 WBC RBC Hgb Hct MCV MCH MCHC RDW Plt Count MPV Absolute Neuts (auto) Neutrophils % Lymphocytes % Monocytes % Eosinophils % Basophils % Nucleated RBC % PT with INR 12.00 INR 1.02 PTT (Actin FS) 24.3 L Anticoagulation Therapy Puncture Site ABG pH ABG pCO2 at Pt Temp ABG pO2 at Pt Temp ABG HCO3 ABG O2 Sat (Measured) ABG O2 Content ABG Base Excess Tha Test O2 Delivery Device Oxygen Flow Rate Vent Mode Vent Rate Mechanical Rate Pressure Support Vent Sodium 144 Potassium 3.9 Chloride 115 H Carbon Dioxide 22 Anion Gap 7 L BUN 22.4 H Creatinine 1.1 Est GFR (CKD-EPI)AfAm 51.91 Est GFR (CKD-EPI)NonAf 44.79 POC Glucometer Random Glucose 101 Calcium 8.4 L Magnesium Iron TIBC Iron Saturation Unsaturated IBC Ferritin 6.2 L Total Bilirubin 0.2 AST 15 ALT 19 Alkaline Phosphatase 81 LD Total 244 B-Natriuretic Peptide Total Protein 6.2 L Albumin 3.0 L TSH Stool Occult Blood Blood Type A POSITIVE Antibody Screen Negative Crossmatch See Detail 06/11/19 06/11/19 06/11/19 13:33 13:33 14:28 WBC 10.5 H RBC 2.53 L Hgb 6.0 L* Hct 19.7 L D MCV 78.1 L MCH 23.7 L D MCHC 30.3 L RDW 16.6 H Plt Count 448 H D MPV 7.5 D Absolute Neuts (auto) 8.7 H Neutrophils % 83.0 H Lymphocytes % 4.6 L D Monocytes % 8.6 Eosinophils % 2.8 Basophils % 1.0 Nucleated RBC % 0 PT with INR INR PTT (Actin FS) Anticoagulation Therapy Puncture Site ABG pH ABG pCO2 at Pt Temp ABG pO2 at Pt Temp ABG HCO3 ABG O2 Sat (Measured) ABG O2 Content ABG Base Excess Tha Test O2 Delivery Device Oxygen Flow Rate Vent Mode Vent Rate Mechanical Rate Pressure Support Vent Sodium Potassium Chloride Carbon Dioxide Anion Gap BUN Creatinine Est GFR (CKD-EPI)AfAm Est GFR (CKD-EPI)NonAf POC Glucometer Random Glucose Calcium Magnesium Iron 12 L TIBC 391 Iron Saturation 3 L Unsaturated IBC 379 H Ferritin Total Bilirubin AST ALT Alkaline Phosphatase LD Total B-Natriuretic Peptide Total Protein Albumin TSH Stool Occult Blood Negative Blood Type Antibody Screen Crossmatch 06/11/19 06/12/19 06/12/19 17:52 05:40 06:40 WBC 17.0 H RBC 3.76 Hgb 9.8 L Hct 31.3 L D MCV 83.1 MCH 26.2 D MCHC 31.5 L RDW 18.3 H Plt Count 498 H MPV 7.8 Absolute Neuts (auto) 14.3 H Neutrophils % 84.0 H Lymphocytes % 6.5 L D Monocytes % 6.6 Eosinophils % 1.7 Basophils % 1.2 Nucleated RBC % 1 H PT with INR INR PTT (Actin FS) Anticoagulation Therapy No Result Required. Puncture Site Right radial ABG pH 7.06 L* ABG pCO2 at Pt Temp 64.3 H ABG pO2 at Pt Temp 62.7 L ABG HCO3 17.4 L ABG O2 Sat (Measured) 79.3 L ABG O2 Content 11.4 ABG Base Excess -12.9 L Tha Test Positive O2 Delivery Device Aerosal Oxygen Flow Rate 6l Vent Mode No Result Required. Vent Rate No Result Required. Mechanical Rate No Result Required. Pressure Support Vent No Result Required. Sodium Potassium Chloride Carbon Dioxide Anion Gap BUN Creatinine Est GFR (CKD-EPI)AfAm Est GFR (CKD-EPI)NonAf POC Glucometer 128 Random Glucose Calcium Magnesium Iron TIBC Iron Saturation Unsaturated IBC Ferritin Total Bilirubin AST ALT Alkaline Phosphatase LD Total B-Natriuretic Peptide Total Protein Albumin TSH Stool Occult Blood Blood Type Antibody Screen Crossmatch 06/12/19 06/12/19 06:40 07:50 WBC RBC Hgb Hct MCV MCH MCHC RDW Plt Count MPV Absolute Neuts (auto) Neutrophils % Lymphocytes % Monocytes % Eosinophils % Basophils % Nucleated RBC % PT with INR INR PTT (Actin FS) Anticoagulation Therapy No Result Required. Puncture Site Right brachial ABG pH 7.31 L ABG pCO2 at Pt Temp 36.1 ABG pO2 at Pt Temp 84.5 ABG HCO3 17.4 L ABG O2 Sat (Measured) 95.3 ABG O2 Content 13.4 ABG Base Excess -7.7 L Tha Test Positive O2 Delivery Device Bipap Oxygen Flow Rate 80% Vent Mode S/t Vent Rate 16 Mechanical Rate No Result Required. Pressure Support Vent 16/8 Sodium 139 Potassium 5.0 Chloride 111 H Carbon Dioxide 19 L Anion Gap 9 BUN 27.3 H Creatinine 1.6 H Est GFR (CKD-EPI)AfAm 33.00 Est GFR (CKD-EPI)NonAf 28.47 POC Glucometer Random Glucose 343 H Calcium 8.4 L Magnesium 2.3 Iron TIBC Iron Saturation Unsaturated IBC Ferritin Total Bilirubin 1.3 H AST 33 ALT 28 Alkaline Phosphatase 99 LD Total B-Natriuretic Peptide 5155.8 H Total Protein 5.9 L Albumin 2.7 L TSH 4.54 H Stool Occult Blood Blood Type Antibody Screen Crossmatch Active Medications Generic Name Dose Route Start Last Admin Trade Name Freq PRN Reason Stop Dose Admin Acetaminophen 650 mg 06/11/19 16:47 Tylenol - PO Q6H PRN PAIN LEVEL 4 - 6 Albuterol/Ipratropium 1 amp 06/11/19 20:00 06/12/19 06:12 Duoneb - NEB 1 amp RQID NICOLE Administration Albuterol/Ipratropium 1 amp 06/12/19 05:29 06/12/19 06:00 Duoneb - NEB 1 amp Q4H PRN Administration ASTHMA Aspirin 81 mg 06/12/19 10:00 Asa - PO DAILY NICOLE Atorvastatin Calcium 20 mg 06/11/19 22:00 06/11/19 23:38 Lipitor - PO Not Given HS NICOLE Carvedilol 3.125 mg 06/11/19 22:00 06/11/19 21:13 Coreg - PO Not Given BID NICOLE Melatonin 5 mg 06/11/19 16:47 06/12/19 00:06 Melatonin PO 5 mg HS PRN Administration INSOMNIA Montelukast Sodium 10 mg 06/11/19 22:00 06/11/19 23:38 Singulair - PO Not Given HS NICOLE Olanzapine 5 mg 06/12/19 10:00 Zyprexa - PO DAILY NICOLE CBC, BMP 06/12/19 06:40 06/12/19 06:40 ASSESSMENT/PLAN: 88 year old female with multiple comorbedities presented to ED from PCP office due to low hGb 5.8 , was 6 in ED , improved to 9.8 after 2 units PRBCS # Microcytic Microchromic anemia with low Iron and ferritin 6 likely iron deficiency anemia , can not R.O anemia of chronic disease ckd or blood loss * MCV 78/ mchc 30 before transfusion * Iron 12, ferritin 6 * occult blood negative * monitor H/H daily * maintain hgb > 8 with lasix if overloaded or sob * start venofer 200 mg infusion every other day for 3 days * b12 , folic acid, * tsh normal , * Avoid NSAIDs avoid ASA consider to stop as risk more than benefits * S/P 40 mg iv lasix * Serum protein electrophoresis * consider GI consult and GI work up # leuckocytosis R.O infection process , follow up cx # Thrombocytosis likely due to anemia monitor cbc daily for now # H/O renal cyst , repeat US , UA # COPD # HTN # DCHF # HLD # CKD # anxiety # Depression # RENITA on CKD # Lung nodule R.O infection , consult Pulmonary , follow up with repeat images per primary team Dispo: We will continue to follow the patient. Thank you for this consultative opportunity. <Juan C Saleh - Last Filed: 06/12/19 11:25> Consultation: REQUESTING PROVIDER: CONSULT REQUEST: We have been asked to medically evaluate this patient for ( specify). HISTORY OF PRESENT ILLNESS: REVIEW OF SYSTEMS: CONSTITUTIONAL: Absent: fever, chills, diaphoresis, generalized weakness, malaise, loss of appetite, weight change HEENT: Absent: rhinorrhea, nasal congestion, throat pain, throat swelling, difficulty swallowing, mouth swelling, ear pain, eye pain, visual changes CARDIOVASCULAR: Absent: chest pain, syncope, palpitations, irregular heart rate, lightheadedness , peripheral edema RESPIRATORY: Absent: cough, shortness of breath, dyspnea with exertion, orthopnea, wheezing, stridor, hemoptysis GASTROINTESTINAL: Absent: abdominal pain, abdominal distension, nausea, vomiting, diarrhea, constipation, melena, hematochezia GENITOURINARY: Absent: dysuria, frequency, urgency, hesitancy, hematuria, flank pain, genital pain MUSCULOSKELETAL: Absent: myalgia, arthralgia, joint swelling, back pain, neck pain SKIN: Absent: rash, itching, pallor HEMATOLOGIC/IMMUNOLOGIC: Absent: easy bleeding, easy bruising, lymphadenopathy, frequent infections ENDOCRINE: Absent: unexplained weight gain, unexplained weight loss, heat intolerance, cold intolerance NEUROLOGIC: Absent: headache, focal weakness or paresthesias, dizziness, unsteady gait, seizure, mental status changes, bladder or bowel incontinence PSYCHIATRIC: Absent: anxiety, depression, suicidal or homicidal ideation, hallucinations. PHYSICAL EXAMINATION GENERAL: Awake, alert, and fully oriented, in no acute distress. HEAD: Normal with no signs of trauma. EYES: Pupils equal, round and reactive to light, extraocular movements intact, sclera anicteric, conjunctiva clear. No lid lag. EARS, NOSE, THROAT: Ears normal, nares patent, oropharynx clear without exudates. Moist mucous membranes. NECK: Normal range of motion, supple without lymphadenopathy, JVD, or masses. LUNGS: Breath sounds equal, clear to auscultation bilaterally. No wheezes, and no crackles. No accessory muscle use. HEART: Regular rate and rhythm, normal S1 and S2 without murmur, rub or gallop. ABDOMEN: Soft, nontender, not distended, normoactive bowel sounds, no guarding, no rebound, no masses. No hepatomegaly or splenomegaly. MUSCULOSKELETAL: Normal range of motion at all joints. No bony deformities or tenderness. No CVA tenderness. UPPER EXTREMITIES: 2+ pulses, warm, well-perfused. No cyanosis. No clubbing. Cap refill <2 seconds. No peripheral edema. LOWER EXTREMITIES: 2+ pulses, warm, well-perfused. No calf tenderness. No peripheral edema. NEUROLOGICAL: Cranial nerves II-XII intact. Normal speech. Normal gait. PSYCHIATRIC: Cooperative. Good eye contact. Appropriate mood and affect. SKIN: Warm, dry, normal turgor, no rashes or lesions noted. ASSESSMENT/PLAN: Dispo: We will continue to follow the patient. Thank you for this consultative opportunity. HEENT: KALPESH, EOM Intact Oropharynx: No thrush, No mucositis Neck: Supple Nodes: Without adenopathy Breasts: Without masses Cor: RSR, No murmurs, No gallops Lungs: Clear to P&A Abd: Soft, Normal bowel sounds, No organomegaly Ext:No significant edema Skin: No rashes, Integument intact <Nilo Medley - Last Filed: 07/18/19 16:35> Visit type - Emergency Visit Emergency Visit: Yes ED Registration Date: 06/11/19 Care time: The patient presented to the Emergency Department on the above date and was hospitalized for further evaluation of their emergent condition. - New Patient This patient is new to me today: Yes Date on this admission: 06/12/19 - Critical Care Critical Care patient: No <Juan C Saleh - Last Filed: 06/12/19 11:25> ATTENDING PHYSICIAN STATEMENT I saw and evaluated the patient. I reviewed the resident's note and discussed the case with the resident. I agree with the resident's findings and plan as documented. SUBJECTIVE: OBJECTIVE: ASSESSMENT AND PLAN: <Juan C Saleh - Last Filed: 06/12/19 11:25> ATTENDING PHYSICIAN STATEMENT I saw and evaluated the patient. I reviewed the resident's note and discussed the case with the resident. I agree with the resident's findings and plan as documented. SUBJECTIVE: OBJECTIVE: ASSESSMENT AND PLAN: <Nilo Medley - Last Filed: 07/18/19 16:35>
[2019-06-12] MEDS ORDERED: IRON SUCROSE INJECTION 200 MG in SODIUM CHLORIDE 90 ML IVPB ONE (11:00)
--- NOTE | 2019-06-12 11:41 | PN ---
Teaching Attending Note Name of Resident: Juan C Saleh ATTENDING PHYSICIAN STATEMENT I saw and evaluated the patient. I reviewed the resident's note and discussed the case with the resident. I agree with the resident's findings and plan as documented. SUBJECTIVE: Patient seen and examined Presented with weakness, SOB, and found to have Hb.--6.0 with Hct --19.7% Previous admission in 2018 with similar presentation of Fe++ deficiency requiring blood transfusion and parenteral iron therapy as outpatient. PMH-HBP,HLD,D-CHF,CAD CKD, COPD Current Medications Generic Name Dose Route Start Last Admin Trade Name Freq PRN Reason Stop Dose Admin Acetaminophen 650 mg 06/11/19 16:47 Tylenol - PO Q6H PRN PAIN LEVEL 4 - 6 Albuterol/Ipratropium 1 amp 06/11/19 20:00 06/12/19 06:12 Duoneb - NEB 1 amp RQID NICOLE Administration Albuterol/Ipratropium 1 amp 06/12/19 05:29 06/12/19 06:00 Duoneb - NEB 1 amp Q4H PRN Administration ASTHMA Aspirin 81 mg 06/12/19 10:00 Asa - PO DAILY NICOLE Atorvastatin Calcium 20 mg 06/11/19 22:00 06/11/19 23:38 Lipitor - PO Not Given HS NICOLE Carvedilol 3.125 mg 06/11/19 22:00 06/11/19 21:13 Coreg - PO Not Given BID NICOLE Iron Sucrose 200 mg/ Sodium 100 mls @ 100 mls/hr 06/12/19 11:00 Chloride IVPB 06/12/19 11:59 ONCE ONE Melatonin 5 mg 06/11/19 16:47 06/12/19 00:06 Melatonin PO 5 mg HS PRN Administration INSOMNIA Montelukast Sodium 10 mg 06/11/19 22:00 06/11/19 23:38 Singulair - PO Not Given HS NICOLE Olanzapine 5 mg 06/12/19 10:00 Zyprexa - PO DAILY NICOLE OBJECTIVE: HEENT: KALPESH, EOM Intact Oropharynx: No thrush, No mucositis Neck: Supple Nodes: Without adenopathy Breasts: Without masses, inverted (partial) l of right nipple Cor: RSR, systolic murmur Lungs:rhonchi Abd: Soft, Normal bowel sounds, No organomegaly Ext:No significant edema Skin: No rashes, Integument intact CBC, BMP 06/12/19 06:40 06/12/19 06:40 S/P 2 units of packed cells; s/p rapid response Currently on O-2 ---> Abnormal Lab Results 06/11/19 06/11/19 06/11/19 13:33 13:33 13:33 WBC RBC Hgb Hct MCV MCH MCHC RDW Plt Count Absolute Neuts (auto) Neutrophils % Lymphocytes % Nucleated RBC % PTT (Actin FS) 24.3 L ABG pH ABG pCO2 at Pt Temp ABG pO2 at Pt Temp ABG HCO3 ABG O2 Sat (Measured) ABG Base Excess Chloride 115 H Carbon Dioxide Anion Gap 7 L BUN 22.4 H Creatinine Random Glucose Calcium 8.4 L Iron Iron Saturation Unsaturated IBC Ferritin 6.2 L Total Bilirubin B-Natriuretic Peptide Total Protein 6.2 L Albumin 3.0 L TSH Crossmatch See Detail 06/11/19 06/11/19 06/12/19 13:33 13:33 05:40 WBC 10.5 H RBC 2.53 L Hgb 6.0 L* Hct 19.7 L D MCV 78.1 L MCH 23.7 L D MCHC 30.3 L RDW 16.6 H Plt Count 448 H D Absolute Neuts (auto) 8.7 H Neutrophils % 83.0 H Lymphocytes % 4.6 L D Nucleated RBC % PTT (Actin FS) ABG pH 7.06 L* ABG pCO2 at Pt Temp 64.3 H ABG pO2 at Pt Temp 62.7 L ABG HCO3 17.4 L ABG O2 Sat (Measured) 79.3 L ABG Base Excess -12.9 L Chloride Carbon Dioxide Anion Gap BUN Creatinine Random Glucose Calcium Iron 12 L Iron Saturation 3 L Unsaturated IBC 379 H Ferritin Total Bilirubin B-Natriuretic Peptide Total Protein Albumin TSH Crossmatch 06/12/19 06/12/19 06/12/19 06:40 06:40 07:50 WBC 17.0 H RBC Hgb 9.8 L Hct 31.3 L D MCV MCH MCHC 31.5 L RDW 18.3 H Plt Count 498 H Absolute Neuts (auto) 14.3 H Neutrophils % 84.0 H Lymphocytes % 6.5 L D Nucleated RBC % 1 H PTT (Actin FS) ABG pH 7.31 L ABG pCO2 at Pt Temp ABG pO2 at Pt Temp ABG HCO3 17.4 L ABG O2 Sat (Measured) ABG Base Excess -7.7 L Chloride 111 H Carbon Dioxide 19 L Anion Gap BUN 27.3 H Creatinine 1.6 H Random Glucose 343 H Calcium 8.4 L Iron Iron Saturation Unsaturated IBC Ferritin Total Bilirubin 1.3 H B-Natriuretic Peptide 5155.8 H Total Protein 5.9 L Albumin 2.7 L TSH 4.54 H Crossmatch Impression: Iron saturation --3% Ferritin-6 Picture compatible with iron deficiency --S/P 2 units of p.c. Declines work up as previous; Mild elevation of TSH- would not treat . As patient is not anxious for aggressive measures , would hold off on protein studies despite reverse a/g ratio Will give venfer. Discussed discontinuation ASSESSMENT AND PLAN:
[2019-06-12] MEDS: OLANZapine 5 MG TABLET PO SCH (12:12)
[2019-06-12] MEDS: CARVEDILOL 3.125 MG TABLET (FP) PO SCH ×2 (12:13→22:22)
--- NOTE | 2019-06-12 12:16 | CON.GI ---
Consult Consult Specialty:: Gasteroenterology Referred by:: Kamilah Alexander NP Reason for Consultation:: anemia - History of Present Illness Chief Complaint: weakness History of Present Illness: 88F is admitted with a Hb of 6. Her daughter is an AUTO RADIATOR SPECIALIST and provides a detailed history. Monica has a chronic iron deficiency anemia and has been receiving iron infusions from Dr Medley. No overt bleeding has been noted. She does take aspirin. She last had an EGD and a colonoscopy at age 82 [address] Keith Small. This revealed a large hiatal hernia and diverticulosis. She was offered repeat EGD and colonoscopy when seen by Dr Goyal in 2018 for similar profound anemia but declined. Her daughter informs me that they again will decline these studies. - History Source History Provided By: Family Member Limitations to Obtaining History: Other (dyspneic on CPAP) - Past Medical History Cardio/Vascular: Yes: CHF (last echo revealed normal LV function), HTN, Hyperlipdemia, Mitral Insufficiency Pulmonary: Yes: COPD Gastrointestinal: Yes: Diverticulosis, GI Bleed (chronic indolent bleeding), Hiatal Hernia Renal/: Yes: Renal Inusuff, Other Heme/Onc: Yes: Anemia (due to chronic indolent GI bleeding) Psych: Yes: Anxiety, Depression Dermatology: Yes: Squamous Cell (excised from the face) - Past Surgical History Past Surgical History: Yes: Cataract Removal, Colonoscopy, Hysterectomy (GERTRUDIS with one ovary removed), Upper Endoscopy Additional Surgical History: Bladder suspension surgery. Squamous cell cancer facial MOHs excision. Ectopic surgery. Bladder suspension surgery. 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 Uncoded 06/11/19 13:07 hyper - Home Medications Home Medications: Ambulatory Orders Aspirin [ASA -] 81 mg PO DAILY tab.chew 07/22/17 Atorvastatin Ca [Lipitor] 20 mg PO HS tablet 07/22/17 Carvedilol [Coreg -] 3.125 mg PO BID tablet 07/22/17 Melatonin 5 mg PO HS PRN tab 07/22/17 Losartan Potassium 50 mg PO DAILY 06/11/19 Furosemide [Lasix] 20 PO DAILY 06/12/19 Family Medical History Family Hx Cancer: Brother (had colon cancer) Family Hx Congestive Heart Failure: Father ( 77) Family Hx Coronary Artery Disease: Mother ( age 56 of [place]) Family Hx Gastrointestinal Disorder: Daughter (has colon polyps) Review of Systems Unable to obtain ROS, reason: on CPAP and dyspneic Physical Exam-GI Vital Signs: Vital Signs Temperature 98.6 F 06/12/19 10:07 Pulse Rate 100 H 06/12/19 10:07 Respiratory Rate 22 H 06/12/19 10:07 Blood Pressure 107/73 06/12/19 10:07 O2 Sat by Pulse Oximetry (%) 93 L 06/12/19 11:37 CBC,CMP WBC 17.0 K/mm3 (4.0-10.0) H 06/12/19 06:40 RBC 3.76 M/mm3 (3.60-5.2) 06/12/19 06:40 Hgb 9.8 GM/dL (10.7-15.3) L 06/12/19 06:40 Hct 31.3 % (32.4-45.2) L D 06/12/19 06:40 MCV 83.1 fl (80-96) 06/12/19 06:40 MCH 26.2 pg (25.7-33.7) D 06/12/19 06:40 MCHC 31.5 g/dl (32.0-36.0) L 06/12/19 06:40 RDW 18.3 % (11.6-15.6) H 06/12/19 06:40 Plt Count 498 K/MM3 (134-434) H 06/12/19 06:40 MPV 7.8 fl (7.5-11.1) 06/12/19 06:40 Absolute Neuts (auto) 14.3 K/mm3 (1.5-8.0) H 06/12/19 06:40 Neutrophils % 84.0 % (42.8-82.8) H 06/12/19 06:40 Lymphocytes % 6.5 % (8-40) L D 06/12/19 06:40 Monocytes % 6.6 % (3.8-10.2) 06/12/19 06:40 Eosinophils % 1.7 % (0-4.5) 06/12/19 06:40 Basophils % 1.2 % (0-2.0) 06/12/19 06:40 Nucleated RBC % 1 % (0-0) H 06/12/19 06:40 Sodium 139 mmol/L (136-145) 06/12/19 06:40 Potassium 5.0 mmol/L (3.5-5.1) 06/12/19 06:40 Chloride 111 mmol/L (98-107) H 06/12/19 06:40 Carbon Dioxide 19 mmol/L (21-32) L 06/12/19 06:40 Anion Gap 9 MMOL/L (8-16) 06/12/19 06:40 BUN 27.3 mg/dL (7-18) H 06/12/19 06:40 Creatinine 1.6 mg/dL (0.55-1.3) H 06/12/19 06:40 Est GFR (CKD-EPI)AfAm 33.00 06/12/19 06:40 Est GFR (CKD-EPI)NonAf 28.47 06/12/19 06:40 POC Glucometer 128 UNITS (80-120) 06/11/19 17:52 Random Glucose 343 mg/dL (74-106) H 06/12/19 06:40 Calcium 8.4 mg/dL (8.5-10.1) L 06/12/19 06:40 Magnesium 2.3 mg/dL (1.8-2.4) 06/12/19 06:40 Iron 12 ug/dL (50-175) L 06/11/19 13:33 TIBC 391 ug/dL (250-450) 06/11/19 13:33 Iron Saturation 3 % (17.5-39) L 06/11/19 13:33 Unsaturated IBC 379 ug/dL (200-275) H 06/11/19 13:33 Ferritin 6.2 ng/ml (8-388) L 06/11/19 13:33 Total Bilirubin 1.3 mg/dL (0.2-1) H 06/12/19 06:40 AST 33 U/L (15-37) 06/12/19 06:40 ALT 28 U/L (13-61) 06/12/19 06:40 Alkaline Phosphatase 99 U/L (45-117) 06/12/19 06:40 LD Total 244 U/L (84-246) 06/11/19 13:33 B-Natriuretic Peptide 5155.8 pg/ml (5-450) H 06/12/19 06:40 Total Protein 5.9 g/dl (6.4-8.2) L 06/12/19 06:40 Albumin 2.7 g/dl (3.4-5.0) L 06/12/19 06:40 TSH 4.54 uIU/ml (0.358-3.74) H 06/12/19 06:40 Current Medications Generic Name Dose Route Start Last Admin Trade Name Freq PRN Reason Stop Dose Admin Acetaminophen 650 mg 06/11/19 16:47 Tylenol - PO Q6H PRN PAIN LEVEL 4 - 6 Albuterol/Ipratropium 1 amp 06/11/19 20:00 06/12/19 11:00 Duoneb - NEB 1 amp RQID NICOLE Administration Albuterol/Ipratropium 1 amp 06/12/19 05:29 06/12/19 06:00 Duoneb - NEB 1 amp Q4H PRN Administration ASTHMA Aspirin 81 mg 06/12/19 10:00 06/12/19 12:12 Asa - PO Not Given DAILY NICOLE Atorvastatin Calcium 20 mg 06/11/19 22:00 06/11/19 23:38 Lipitor - PO Not Given HS NICOLE Carvedilol 3.125 mg 06/11/19 22:00 06/12/19 12:13 Coreg - PO Not Given BID NICOLE Melatonin 5 mg 06/11/19 16:47 06/12/19 00:06 Melatonin PO 5 mg HS PRN Administration INSOMNIA Montelukast Sodium 10 mg 06/11/19 22:00 06/11/19 23:38 Singulair - PO Not Given HS NICOLE Olanzapine 5 mg 06/12/19 10:00 06/12/19 12:12 Zyprexa - PO Not Given DAILY NICOLE Constitutional: Yes: Other (dyspneic on CPAP) Eyes: Yes: Conjunctiva Clear HENT: Yes: Atraumatic Neck: Yes: Supple, Other (healed incision) Cardiovascular: Yes: Regular Rate and Rhythm, Murmur (2/6 CHUCK) Respiratory: Yes: Accessory Muscle Use, Rhonchi, Tachypnea Gastrointestinal Inspection: Yes: Scars (healed vertical midline suprapubic incision) ...Auscultate: Yes: Normoactive Bowel Sounds ...Palpate: Yes: Soft, Other (nontender) ...Percussion: Yes: Tympanitic ...Rectal Exam: Yes: Guaiac Positive (soft brown strongly guaiac positive stool , no masses) Labs: CBC, BMP 06/12/19 06:40 06/12/19 06:40 INR, PTT INR 1.02 (0.83-1.09) 06/11/19 13:33 Problem List - Problems (1) Anemia due to gastrointestinal blood loss Code(s): D50.0 - IRON DEFICIENCY ANEMIA SECONDARY TO BLOOD LOSS (CHRONIC) (2) Occult blood in stools Code(s): R19.5 - OTHER FECAL ABNORMALITIES (3) Family history of colon cancer Code(s): Z80.0 - FAMILY HISTORY OF MALIGNANT NEOPLASM OF DIGESTIVE ORGANS (4) Hiatal hernia Code(s): K44.9 - DIAPHRAGMATIC HERNIA WITHOUT OBSTRUCTION OR GANGRENE (5) CKD (chronic kidney disease) Code(s): N18.9 - CHRONIC KIDNEY DISEASE, UNSPECIFIED Qualifiers: Chronic kidney disease stage: stage 3 (moderate) Qualified Code(s): N18.3 - Chronic kidney disease, stage 3 (moderate) (6) COPD (chronic obstructive pulmonary disease) Code(s): J44.9 - CHRONIC OBSTRUCTIVE PULMONARY DISEASE, UNSPECIFIED Qualifiers: COPD type: unspecified COPD Qualified Code(s): J44.9 - Chronic obstructive pulmonary disease, unspecified (7) HTN (hypertension) Code(s): I10 - ESSENTIAL (PRIMARY) HYPERTENSION Assessment/Plan Assessment: - Progressive anemia due to chronic GI bleeding probably accelerated by aspirin. I suspect that this reflects either Adelfo ulcers within the hiatal hernia or bleeding from small bowel vascular ectasias. Given her FH of colon cancer in her brother I offered an EGD and a colonoscopy but her daughter Peg who is an AUTO RADIATOR SPECIALIST declines. A capsule endoscopy will not be authorized by Medicare without a recent panendoscopic evaluation. Her respiratory condition makes her a high risk endoscopy candidate Plan: -- Empiric PPI therapy -- Withhold aspirin and NSAIDs -- Continue IV iron replacement ( discussed with Dr Medley) -- Celiac disease panel
--- NOTE | 2019-06-12 12:27 | CON.PULM ---
Consult Consult Specialty:: PULMONARY Referred by:: PMD Reason for Consultation:: SOB/HYPERCAPNEIC HYPOXEMIC RESP FAILURE - History of Present Illness Chief Complaint: SOB History of Present Illness: 88 F with h/o CHF, COPD, HTN, FE def anemia, CKD, presenting to ED for feeling weak for the past 2 weeks. Denies any CP/SOB. She went to her PMD who checked labs and found her Hb to be 5.8. Pt denies any h/o GI bleed or any other bleed. Is on baby aspirin, no other AC. No dark stools or BRBPR. 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 Cardio/Vascular: Yes: AFIB (paroxysmal ), CHF, HTN, Hyperlipdemia Pulmonary: Yes: COPD Gastrointestinal: Yes: Hiatal Hernia Renal/: Yes: Renal Failure, Renal Inusuff, Other (benign renal mass) Psych: Yes: Anxiety, Depression - Alcohol/Substance Use Hx Alcohol Use: No History of Substance Use: reports: None - Smoking History Smoking history: Never smoked Have you smoked in the past 12 months: No Aproximately how many cigarettes per day: 0 If you are a former smoker, when did you quit?: 30 years ago - Social History History of Recent Travel: No Home Medications - Allergies Allergies/Adverse Reactions: Allergies Allergy/AdvReac Type Severity Reaction Status Date / Time erythromycin base Allergy Verified 06/11/19 13:07 [Erythromycin Base] prednisone AdvReac Verified 06/11/19 13:07 accromycin AdvReac Mild makes pt. Uncoded 06/11/19 13:07 hyper - Home Medications Home Medications: Ambulatory Orders Aspirin [ASA -] 81 mg PO DAILY tab.chew 07/22/17 Atorvastatin Ca [Lipitor] 20 mg PO HS tablet 07/22/17 Carvedilol [Coreg -] 3.125 mg PO BID tablet 07/22/17 Melatonin 5 mg PO HS PRN tab 07/22/17 Losartan Potassium 50 mg PO DAILY 06/11/19 Furosemide [Lasix] 20 PO DAILY 06/12/19 Family Medical History Family History: Unremarkable Review of Systems Unable to obtain ROS, reason: clinical condition Physical Exam Vital Sings: Vital Signs Temperature 98.6 F 06/12/19 10:07 Pulse Rate 100 H 06/12/19 10:07 Respiratory Rate 22 H 06/12/19 10:07 Blood Pressure 107/73 06/12/19 10:07 O2 Sat by Pulse Oximetry (%) 93 L 06/12/19 11:37 Constitutional: Yes: Calm Eyes: Yes: EOM Intact HENT: Yes: Normocephalic Neck: Yes: Trachea Midline Cardiovascular: Yes: Regular Rate and Rhythm, S1, S2 Respiratory: Yes: Diminished Gastrointestinal: Yes: Soft, Abdomen, Obese Edema: LLE: 1+, RLE: 1+ Neurological: Yes: Alert Psychiatric: Yes: Alert Labs: CBC, BMP 06/12/19 06:40 06/12/19 06:40 ABG Results ABG pH 7.31 (7.35-7.45) L 06/12/19 07:50 ABG pCO2 at Pt Temp 36.1 mmHg (35-45) 06/12/19 07:50 ABG pO2 at Pt Temp 84.5 mmHg (80-100) 06/12/19 07:50 ABG HCO3 17.4 mmol/L (22-27) L 06/12/19 07:50 ABG O2 Sat (Measured) 95.3 % (95-98) 06/12/19 07:50 ABG O2 Content 13.4 % vol 06/12/19 07:50 ABG Base Excess -7.7 meq/l (-2-2) L 06/12/19 07:50 rest reviewed Imaging - Results Chest X-ray: Report Reviewed, Image Reviewed EKG: Report Reviewed, Image Reviewed Problem List - Problems (1) Respiratory failure with hypercapnia Code(s): J96.92 - RESPIRATORY FAILURE, UNSPECIFIED WITH HYPERCAPNIA (2) Anemia Code(s): D64.9 - ANEMIA, UNSPECIFIED Qualifiers: Anemia type: iron deficiency Iron deficiency anemia type: chronic blood loss Qualified Code(s): D50.0 - Iron deficiency anemia secondary to blood loss (chronic) (3) CHF (congestive heart failure) Code(s): I50.9 - HEART FAILURE, UNSPECIFIED Qualifiers: (4) COPD (chronic obstructive pulmonary disease) Code(s): J44.9 - CHRONIC OBSTRUCTIVE PULMONARY DISEASE, UNSPECIFIED Qualifiers: COPD type: unspecified COPD Qualified Code(s): J44.9 - Chronic obstructive pulmonary disease, unspecified (5) SOB (shortness of breath) Code(s): R06.02 - SHORTNESS OF BREATH (6) Acute on chronic renal failure Code(s): N17.9 - ACUTE KIDNEY FAILURE, UNSPECIFIED; N18.9 - CHRONIC KIDNEY DISEASE, UNSPECIFIED Qualifiers: Chronic kidney disease stage: stage 3 (moderate) Assessment/Plan NIVPPV TOLERATED/TITRATE O2 TO KEEP SAT GREATER THAN 90% TRANSFUSE TO HGB GREATER THAN 8GMS REPLACE IRON/ BRONCHODILATORS/HOLD ON STEROIDS HIGH INCIDENCE OF STEROID PSYCHOSIS IN THIS PATIENT PER DAUGHTER WILL FOLLOW Clarissa STRAUSS MD
--- NOTE | 2019-06-12 14:08 | EKG ---
Test Reason : Blood Pressure : / mmHG Vent. Rate : 082 BPM Atrial Rate : 082 BPM P-R Int : 192 ms QRS Dur : 084 ms QT Int : 378 ms P-R-T Axes : 050 020 055 degrees QTc Int : 441 ms SINUS RHYTHM WITH PREMATURE ATRIAL COMPLEXES OTHERWISE NORMAL ECG WHEN COMPARED WITH ECG OF 08-AUG-2017 13:14, PREMATURE ATRIAL COMPLEXES ARE NOW PRESENT Confirmed by MARY MONTAÑO MD ([id number]) on 06/12/2019 2:08:00 PM Referred By: Confirmed By:MARY MONTAÑO MD
--- NOTE | 2019-06-12 17:44 | CONSULT ---
Consult Consult Specialty:: Nephrology Reason for Consultation:: CKD - History of Present Illness Chief Complaint: shortness of breath History of Present Illness: Pt is an 88 year old female with pmhx of ckd and copd who presents to the ER wtih shortntess of breath. She was found to have anemia with a hg of 5.7 and sent to the ER. She was given prbc transfusions after which she had a rapid response. SHe is now awake and alert. Her family are at bedside. She has history of CKD and follows with Dr Morrow. Her renal function is at baseline. 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 Squamous cell cancer facial MOHs excision. Ectopic surgery. Bladder suspension surgery. 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 Uncoded 06/11/19 13:07 hyper - Home Medications Home Medications: Ambulatory Orders Aspirin [ASA -] 81 mg PO DAILY tab.chew 07/22/17 Atorvastatin Ca [Lipitor] 20 mg PO HS tablet 07/22/17 Carvedilol [Coreg -] 3.125 mg PO BID tablet 07/22/17 Melatonin 5 mg PO HS PRN tab 07/22/17 Losartan Potassium 50 mg PO DAILY 06/11/19 Furosemide [Lasix] 20 PO DAILY 06/12/19 Family Medical History Family History: Denies Review of Systems - Review of Systems Constitutional: reports: Malaise Eyes: reports: No Symptoms HENT: reports: No Symptoms Neck: reports: No Symptoms Cardiovascular: reports: Edema Respiratory: reports: Cough, SOB, SOB on Exertion Gastrointestinal: reports: No Symptoms Genitourinary: reports: No Symptoms Musculoskeletal: reports: No Symptoms Integumentary: reports: No Symptoms Neurological: reports: No Symptoms Endocrine: reports: No Symptoms Hematology/Lymphatic: reports: No Symptoms Psychiatric: reports: No Symptoms Physical Exam Vital Signs: Vital Signs Temperature 97.9 F 06/12/19 14:55 Pulse Rate 108 H 06/12/19 14:55 Respiratory Rate 06/12/19 14:55 Blood Pressure 154/88 06/12/19 14:55 O2 Sat by Pulse Oximetry (%) 95 06/12/19 16:27 Constitutional: Yes: Calm Eyes: Yes: Conjunctiva Clear HENT: Yes: Atraumatic Cardiovascular: Yes: S1, S2 Respiratory: Yes: On Nasal O2 Gastrointestinal: Yes: Soft Renal/: Yes: WNL Musculoskeletal: Yes: WNL Edema: No Neurological: Yes: Oriented Psychiatric: Yes: Oriented Labs: CBC, BMP 06/12/19 06:40 06/12/19 06:40 Laboratory Tests 07/18/17 07/18/17 07/21/17 15:51 21:50 07:28 Hgb ABG pH Sodium Potassium Chloride Carbon Dioxide Anion Gap BUN Creatinine 1.3 H 1.6 H 1.9 H 07/22/17 08/08/17 09/04/17 06:45 13:12 17:40 Hgb ABG pH Sodium Potassium Chloride Carbon Dioxide Anion Gap BUN Creatinine 2.0 H 1.6 H 1.4 H 06/11/19 06/11/19 06/12/19 13:33 13:33 06:40 Hgb 6.0 L* 9.8 L ABG pH Sodium Potassium Chloride Carbon Dioxide Anion Gap BUN Creatinine 1.1 06/12/19 06/12/19 06:40 07:50 Hgb ABG pH 7.31 L Sodium 139 Potassium 5.0 Chloride 111 H Carbon Dioxide 19 L Anion Gap 9 BUN 27.3 H Creatinine 1.6 H Imaging - Results Ultrasound: Report Reviewed Problem List - Problems (1) Anemia Code(s): D64.9 - ANEMIA, UNSPECIFIED Qualifiers: Anemia type: iron deficiency Iron deficiency anemia type: chronic blood loss Qualified Code(s): D50.0 - Iron deficiency anemia secondary to blood loss (chronic) (2) CKD (chronic kidney disease) Code(s): N18.9 - CHRONIC KIDNEY DISEASE, UNSPECIFIED Qualifiers: Chronic kidney disease stage: stage 3 (moderate) Qualified Code(s): N18.3 - Chronic kidney disease, stage 3 (moderate) Assessment/Plan Current Medications Generic Name Dose Route Start Last Admin Trade Name Freq PRN Reason Stop Dose Admin Acetaminophen 650 mg 06/11/19 16:47 Tylenol - PO Q6H PRN PAIN LEVEL 4 - 6 Albuterol/Ipratropium 1 amp 06/11/19 20:00 06/12/19 16:28 Duoneb - NEB Not Given RQID NICOLE Albuterol/Ipratropium 1 amp 06/12/19 05:29 06/12/19 06:00 Duoneb - NEB 1 amp Q4H PRN Administration ASTHMA Atorvastatin Calcium 20 mg 06/11/19 22:00 06/11/19 23:38 Lipitor - PO Not Given HS NICOLE Carvedilol 3.125 mg 06/11/19 22:00 06/12/19 12:13 Coreg - PO Not Given BID NICOLE Melatonin 5 mg 06/11/19 16:47 06/12/19 00:06 Melatonin PO 5 mg HS PRN Administration INSOMNIA Montelukast Sodium 10 mg 06/11/19 22:00 06/11/19 23:38 Singulair - PO Not Given HS NICOLE Olanzapine 5 mg 06/12/19 10:00 06/12/19 12:12 Zyprexa - PO Not Given DAILY NICOLE Pantoprazole Sodium 40 mg 06/12/19 22:00 Protonix Iv IVPUSH BID NICOLE Impression 1. dyspnea 2. CKD 3. CHF 4. hld 5. copd 6. HTN 7. anemia 8. renal cyst Plan - renal function stable - avoid nsaids - consider urology eval and follow up for renal cyst, spoke to daughter - monitor volume status - monitor hg - will follow Dr Jarquin
--- NOTE | 2019-06-12 18:24 | PN ---
Progress Note (short form) - Note Progress Note: Cancelled ICU consult, as Rpt. ABG showed significant improvement on BiPAP.
[2019-06-12 20:41] LABS: EPI CELLS 0.8 /HPF (0-5/HPF); HYALINE CASTS 19 /lpf (0-8); URINE APPEARANCE CLOUDY; URINE BACTERIA 4784.8 /hpf (NEGATIVE); URINE BILIRUBIN NEGATIVE (NEGATIVE); URINE COLOR YELLOW; URINE GLUCOSE (UA) NEGATIVE (NEGATIVE); URINE KETONE NEGATIVE (NEGATIVE); URINE LEUK ESTERASE 1+ (NEGATIVE); URINE NITRITE NEGATIVE (NEGATIVE); URINE PROTEIN 2+ (NEGATIVE); URINE RBC 10 /hpf (0-4); URINE UROBILINOGEN 0.2 mg/dL (0.2-1.0); URINE WBC 152 /hpf (0-5)
[2019-06-12] MEDS: MONTELUKAST NA 10 MG TABLET PO SCH (22:22)
[2019-06-12] MEDS: ATORVASTATIN CA 20 MG TABLET (FP) PO SCH (22:22)
[2019-06-12] MEDS: PANTOPRAZOLE SODIUM 40 MG VIAL IVPUSH SCH (22:22)
[2019-06-13 07:22] LABS: BASO % 0.1 % (0-2.0); HEMATOCRIT 28.6 % (32.4-45.2); HEMOGLOBIN 9.1 GM/dL (10.7-15.3); MCHC 31.8 g/dl (32.0-36.0); MEAN CELL VOLUME 81.8 fl (80-96); MEAN PLT VOLUME 8.2 fl (7.5-11.1); MONO % 7.9 % (3.8-10.2); PLATELET COUNT 411 K/MM3 (134-434); RBC 3.49 M/mm3 (3.60-5.2); RDW 19.2 % (11.6-15.6); RETICULOCYTES 2.77 % (0.5-1.5); WHITE BLOOD COUNT 22.5 K/mm3 (4.0-10.0)
[2019-06-13] MEDS: ALBUTEROL SO4 2.5/IPRATROPIUM 0.5 INH SOL 3 ML VIAL.NEB. NEB SCH ×4 (07:35→20:05)
[2019-06-13 07:37] LABS: BLOOD UREA NITROGEN 39.2 mg/dL (7-18); CALCIUM 8.7 mg/dL (8.5-10.1); CREATININE 1.8 mg/dL (0.55-1.3); POTASSIUM 4.1 mmol/L (3.5-5.1)
[2019-06-13] MEDS: CARVEDILOL 3.125 MG TABLET (FP) PO SCH ×2 (10:28→21:59)
[2019-06-13] MEDS: PANTOPRAZOLE SODIUM 40 MG VIAL IVPUSH SCH (10:28)
[2019-06-13] MEDS: OLANZapine 5 MG TABLET PO SCH (10:36)
--- NOTE | 2019-06-13 10:50 | PN ---
Progress Note, Physician Chief Complaint: MORE AWAKE ALERT FEELING BETTER TODAY HAD A BAD NIGHT PER DAUGHTER WHO IS BEDSIDE. PATIENT WAS AGITATED POSSIBLY FROM STEROIDS? - Current Medication List Current Medications: Active Medications Acetaminophen (Tylenol -) 650 mg PO Q6H PRN PRN Reason: PAIN LEVEL 4 - 6 Albuterol/Ipratropium (Duoneb -) 1 amp NEB RQID [facility] Last Admin: 06/13/19 07:35 Dose: Not Given Albuterol/Ipratropium (Duoneb -) 1 amp NEB Q4H PRN PRN Reason: ASTHMA Last Admin: 06/12/19 06:00 Dose: 1 amp Atorvastatin Calcium (Lipitor -) 20 mg PO HS [facility] Last Admin: 06/12/19 22:22 Dose: 20 mg Carvedilol (Coreg -) 3.125 mg PO BID [facility] Last Admin: 06/13/19 10:28 Dose: 3.125 mg Melatonin (Melatonin) 5 mg PO HS PRN PRN Reason: INSOMNIA Last Admin: 06/12/19 22:22 Dose: 5 mg Montelukast Sodium (Singulair -) 10 mg PO HS [facility] Last Admin: 06/12/19 22:22 Dose: 10 mg Olanzapine (Zyprexa -) 5 mg PO DAILY [facility] Last Admin: 06/13/19 10:36 Dose: Not Given Pantoprazole Sodium (Protonix Iv) 40 mg IVPUSH BID [facility] Last Admin: 06/13/19 10:28 Dose: 40 mg - Objective Vital Signs: Vital Signs Temperature 97.5 F L 06/13/19 06:00 Pulse Rate 111 H 06/13/19 07:35 Respiratory Rate 20 06/13/19 06:00 Blood Pressure 143/84 06/13/19 06:00 O2 Sat by Pulse Oximetry (%) 95 06/13/19 07:35 Constitutional: Yes: Mild Distress Cardiovascular: Yes: Pulse Irregular Respiratory: Yes: Diminished Gastrointestinal: Yes: Soft Genitourinary: Yes: Burnett Present Musculoskeletal: Yes: Muscle Weakness Edema: No Peripheral Pulses WNL: Yes Integumentary: Yes: WNL Wound/Incision: Yes: Clean/Dry Neurological: Yes: Confusion, Pre-Existing Deficit ...Motor Strength: LLE, RLE Psychiatric: Yes: Other Labs: CBC, BMP 06/13/19 05:30 06/13/19 05:30 INR, PTT INR 1.02 (0.83-1.09) 06/11/19 13:33 Problem List - Problems (1) Anemia Code(s): D64.9 - ANEMIA, UNSPECIFIED Qualifiers: Anemia type: iron deficiency Iron deficiency anemia type: chronic blood loss Qualified Code(s): D50.0 - Iron deficiency anemia secondary to blood loss (chronic) (2) Anemia due to gastrointestinal blood loss Code(s): D50.0 - IRON DEFICIENCY ANEMIA SECONDARY TO BLOOD LOSS (CHRONIC) (3) Family history of colon cancer Code(s): Z80.0 - FAMILY HISTORY OF MALIGNANT NEOPLASM OF DIGESTIVE ORGANS (4) Hiatal hernia Code(s): K44.9 - DIAPHRAGMATIC HERNIA WITHOUT OBSTRUCTION OR GANGRENE (5) Occult blood in stools Code(s): R19.5 - OTHER FECAL ABNORMALITIES (6) Respiratory failure with hypercapnia Code(s): J96.92 - RESPIRATORY FAILURE, UNSPECIFIED WITH HYPERCAPNIA (7) Acute on chronic renal failure Code(s): N17.9 - ACUTE KIDNEY FAILURE, UNSPECIFIED; N18.9 - CHRONIC KIDNEY DISEASE, UNSPECIFIED Qualifiers: Chronic kidney disease stage: stage 3 (moderate) (8) Dilated cardiomyopathy Code(s): I42.0 - DILATED CARDIOMYOPATHY (9) SOB (shortness of breath) Code(s): R06.02 - SHORTNESS OF BREATH Assessment/Plan TRANSFUSED PRBC AND H/H IMPROVED FAMILY UNDERSTANDS THE RISKS AND BENEFITS AN HAS DECLINED FOR ANY PROCEDURES FROM GI AT THIS TIME. MONITOR LABS BURNETT INSERTED CONTINUE FOR NOW IRON SUCROSE IV GIVEN IRON WAS 12 AND TODAY 77. DVT PROPHYLAXIS STOP ASA PT EVAL SNF PLACEMENT GI EVAL APPRECIATED
[2019-06-13 13:41] LABS: ANISOCYTOSIS 1+; MACROCYTOSIS 0; OVALOCYTE 1+; PLATELET ESTIMATE NORMAL; TARGET CELLS 1+
--- NOTE | 2019-06-13 14:38 | PN ---
Progress Note (short form) - Note Progress Note: PULMONARY VSS/AFEBRILE AWAKE/ALERT FAMILY PRESENT EVENTS SURROUNDING TRANSFUSION NOTED CXR HAS DEVELOPED B/L NODULAR INFILTRATES POST PRBC TX SPO2 97% ON NASAL O2 CHEST CLEAR S1S2 BS+ NO CALF TENDERNESS LABS/MEDS/NOTES REVIEWED ?TRALI VS VOLUME OVERLOAD FROM TRANSFUSION APPEARS IMPROVED TODAY ANEMIA FE DEF REFUSES DIAGNOSTIC WORKUP WILL CONTINUE O2/CHECK REPEAT CXR Clarissa STRAUSS MD Problem List - Problems (1) Respiratory failure with hypercapnia Code(s): J96.92 - RESPIRATORY FAILURE, UNSPECIFIED WITH HYPERCAPNIA (2) Anemia Code(s): D64.9 - ANEMIA, UNSPECIFIED Qualifiers: Anemia type: iron deficiency Iron deficiency anemia type: chronic blood loss Qualified Code(s): D50.0 - Iron deficiency anemia secondary to blood loss (chronic) (3) CHF (congestive heart failure) Code(s): I50.9 - HEART FAILURE, UNSPECIFIED Qualifiers: (4) COPD (chronic obstructive pulmonary disease) Code(s): J44.9 - CHRONIC OBSTRUCTIVE PULMONARY DISEASE, UNSPECIFIED Qualifiers: COPD type: unspecified COPD Qualified Code(s): J44.9 - Chronic obstructive pulmonary disease, unspecified (5) SOB (shortness of breath) Code(s): R06.02 - SHORTNESS OF BREATH (6) Acute on chronic renal failure Code(s): N17.9 - ACUTE KIDNEY FAILURE, UNSPECIFIED; N18.9 - CHRONIC KIDNEY DISEASE, UNSPECIFIED Qualifiers: Chronic kidney disease stage: stage 3 (moderate)
--- NOTE | 2019-06-13 15:48 | PN.GI ---
GI Progress Note Subjective: GI Note: Having frequent BMs which are brown. No overt bleeding Hb 9.1 - Objective Vital Signs: Vital Signs Temperature 97.5 F L 06/13/19 06:00 Pulse Rate 104 H 06/13/19 11:27 Respiratory Rate 20 06/13/19 09:00 Blood Pressure 143/84 06/13/19 06:00 O2 Sat by Pulse Oximetry (%) 97 06/13/19 11:27 Laboratory Tests 06/11/19 06/12/19 06/13/19 13:33 06:40 05:30 Hgb 6.0 L* 9.8 L Iron TIBC Iron Saturation Unsaturated IBC Ferritin C-Reactive Protein 13.8 H 06/13/19 06/13/19 05:30 05:30 Hgb 9.1 L Iron 77 TIBC 372 Iron Saturation 20 Unsaturated IBC 295 H Ferritin 122.8 C-Reactive Protein Constitutional: Calm ...Auscultate: Yes: Normoactive Bowel Sounds ...Palpate: Yes: Soft, Other (nontender) Labs: CBC, BMP 06/13/19 05:30 06/13/19 05:30 INR, PTT INR 1.02 (0.83-1.09) 06/11/19 13:33 Assessment/Plan Assessment: - 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 Code(s): D50.0 - IRON DEFICIENCY ANEMIA SECONDARY TO BLOOD LOSS (CHRONIC) (2) Occult blood in stools Code(s): R19.5 - OTHER FECAL ABNORMALITIES (3) Family history of colon cancer Code(s): Z80.0 - FAMILY HISTORY OF MALIGNANT NEOPLASM OF DIGESTIVE ORGANS (4) Hiatal hernia Code(s): K44.9 - DIAPHRAGMATIC HERNIA WITHOUT OBSTRUCTION OR GANGRENE (5) CKD (chronic kidney disease) Code(s): N18.9 - CHRONIC KIDNEY DISEASE, UNSPECIFIED Qualifiers: Chronic kidney disease stage: stage 3 (moderate) Qualified Code(s): N18.3 - Chronic kidney disease, stage 3 (moderate) (6) COPD (chronic obstructive pulmonary disease) Code(s): J44.9 - CHRONIC OBSTRUCTIVE PULMONARY DISEASE, UNSPECIFIED Qualifiers: COPD type: unspecified COPD Qualified Code(s): J44.9 - Chronic obstructive pulmonary disease, unspecified (7) HTN (hypertension) Code(s): I10 - ESSENTIAL (PRIMARY) HYPERTENSION
[2019-06-13] MEDS: PANTOPRAZOLE 40 MG TABLET PO SCH (21:58)
[2019-06-13] MEDS: ATORVASTATIN CA 20 MG TABLET (FP) PO SCH (21:59)
[2019-06-13] MEDS: MELATONIN 5 MG TABLETS PO PRN (21:59)
[2019-06-13] MEDS: MONTELUKAST NA 10 MG TABLET PO SCH (22:21)
[2019-06-14 07:17] LABS: BLOOD UREA NITROGEN 44.2 mg/dL (7-18); CREATININE 1.8 mg/dL (0.55-1.3); POTASSIUM 4.4 mmol/L (3.5-5.1)
[2019-06-14] MEDS: ALBUTEROL SO4 2.5/IPRATROPIUM 0.5 INH SOL 3 ML VIAL.NEB. NEB SCH ×2 (07:25→11:00)
[2019-06-14 07:29] LABS: HEMATOCRIT 30.3 % (32.4-45.2); HEMOGLOBIN 9.3 GM/dL (10.7-15.3); MCH 26.1 pg (25.7-33.7); MCHC 30.7 g/dl (32.0-36.0); MEAN CELL VOLUME 84.9 fl (80-96); MEAN PLT VOLUME 8.3 fl (7.5-11.1); PLATELET COUNT 413 K/MM3 (134-434); RBC 3.57 M/mm3 (3.60-5.2); RDW 19.9 % (11.6-15.6); WHITE BLOOD COUNT 19.4 K/mm3 (4.0-10.0)
--- NOTE | 2019-06-14 09:47 | PN ---
Progress Note, Physician Chief Complaint: Iron Deficiency Anemia COPD History of Present Illness: Previous notes and events reviewed awake and alert NAD still restless and agitated at night as per daughter at bedside pt states her breathing is better but still with SOB on exertion BUN/Cr trending up - Current Medication List Current Medications: Active Medications Acetaminophen (Tylenol -) 650 mg PO Q6H PRN PRN Reason: PAIN LEVEL 4 - 6 Albuterol/Ipratropium (Duoneb -) 1 amp NEB RQID [facility] Last Admin: 06/14/19 07:25 Dose: Not Given Albuterol/Ipratropium (Duoneb -) 1 amp NEB Q4H PRN PRN Reason: ASTHMA Last Admin: 06/12/19 06:00 Dose: 1 amp Atorvastatin Calcium (Lipitor -) 20 mg PO [facility] Last Admin: 06/13/19 21:59 Dose: 20 mg Carvedilol (Coreg -) 3.125 mg PO BID [facility] Last Admin: 06/13/19 21:59 Dose: 3.125 mg Melatonin (Melatonin) 5 mg PO HS PRN PRN Reason: INSOMNIA Last Admin: 06/13/19 21:59 Dose: 5 mg Montelukast Sodium (Singulair -) 10 mg PO [facility] Last Admin: 06/13/19 22:21 Dose: Not Given Pantoprazole Sodium (Protonix -) 40 mg PO BID [facility] Last Admin: 06/13/19 21:58 Dose: 40 mg - Objective Vital Signs: Vital Signs Temperature 97.8 F 06/14/19 06:00 Pulse Rate 82 06/14/19 08:04 Respiratory Rate 20 06/14/19 06:00 Blood Pressure 137/74 06/14/19 06:00 O2 Sat by Pulse Oximetry (%) 98 06/14/19 08:04 Constitutional: Yes: Mild Distress Eyes: Yes: Conjunctiva Clear HENT: Yes: Atraumatic Cardiovascular: Yes: Pulse Irregular Respiratory: Yes: Regular, Accessory Muscle Use, On Nasal O2, Wheezes Gastrointestinal: Yes: Normal Bowel Sounds, Soft Genitourinary: Yes: Stroud Present Musculoskeletal: Yes: Muscle Weakness Extremities: Yes: WNL Edema: No Neurological: Yes: Alert, Confusion, Pre-Existing Deficit Psychiatric: Yes: Alert Labs: CBC, BMP 06/14/19 05:30 06/14/19 05:30 INR, PTT INR 1.02 (0.83-1.09) 06/11/19 13:33 Problem List - Problems (1) Anemia Assessment/Plan: -GI and Hematology on board -s/p 2U PRBC transfusion on admission -s/p Venofer infusion -Hg 9.3 -monitor Hg daily -transfuse for Hg <7.0 to avoid fluid overload -Anemia profile shows low Iron 12, normal TIBC, low Ferritin -after Venofer infusion iron levels increase from 12~77 -Pantoprazole BID -Stool OB neg Code(s): D64.9 - ANEMIA, UNSPECIFIED Qualifiers: Anemia type: iron deficiency Iron deficiency anemia type: chronic blood loss Qualified Code(s): D50.0 - Iron deficiency anemia secondary to blood loss (chronic) (2) Family history of colon cancer Assessment/Plan: -GI on board -family is refusing further GI work-up (EGD/colonoscopy) in setting of anemia Code(s): Z80.0 - FAMILY HISTORY OF MALIGNANT NEOPLASM OF DIGESTIVE ORGANS (3) Respiratory failure with hypercapnia Assessment/Plan: -Pulmonary on board -Montelukast HS -O2 via NC -keep SpO2 >90% -repeat CXR on 06/13/19 shows nodular intersitial infiltrates through both lungs -Bipap prn -bronchodilators Code(s): J96.92 - RESPIRATORY FAILURE, UNSPECIFIED WITH HYPERCAPNIA (4) Acute on chronic renal failure Assessment/Plan: -BUN/Cr 44.2/1.8 -renal on board -monitor renal function daily Code(s): N17.9 - ACUTE KIDNEY FAILURE, UNSPECIFIED; N18.9 - CHRONIC KIDNEY DISEASE, UNSPECIFIED Qualifiers: Chronic kidney disease stage: stage 3 (moderate) (5) CHF (congestive heart failure) Assessment/Plan: -1L fluid restriction -low Na diet -daily weights -strict I&Os Code(s): I50.9 - HEART FAILURE, UNSPECIFIED Qualifiers: (6) HTN (hypertension) Assessment/Plan: -Carvedilol -low Na diet Code(s): I10 - ESSENTIAL (PRIMARY) HYPERTENSION (7) Sleep disturbance Assessment/Plan: -Melatonin HS -Neurology consult--possible sundowning? Code(s): G47.9 - SLEEP DISORDER, UNSPECIFIED (8) HLD (hyperlipidemia) Assessment/Plan: -Atorvastatin Code(s): E78.5 - HYPERLIPIDEMIA, UNSPECIFIED (9) COPD (chronic obstructive pulmonary disease) Assessment/Plan: -Pulmonary on board -Montelukast HS -O2 via NC -keep SpO2 >90% -repeat CXR on 06/13/19 shows nodular intersitial infiltrates through both lungs -Bipap prn -bronchodilators Code(s): J44.9 - CHRONIC OBSTRUCTIVE PULMONARY DISEASE, UNSPECIFIED Qualifiers: COPD type: unspecified COPD Qualified Code(s): J44.9 - Chronic obstructive pulmonary disease, unspecified Assessment/Plan see problem list dvt ppx
[2019-06-14] MEDS: PANTOPRAZOLE 40 MG TABLET PO SCH ×2 (10:19→22:05)
[2019-06-14] MEDS: CARVEDILOL 3.125 MG TABLET (FP) PO SCH ×2 (10:19→22:05)
--- NOTE | 2019-06-14 12:20 | PN ---
Progress Note (short form) - Note Progress Note: PULMONARY VSS/AFEBRILE AWAKE/ALERT FAMILY PRESENT EVENTS SURROUNDING TRANSFUSION NOTED CXR HAS DEVELOPED B/L NODULAR INFILTRATES POST PRBC TX REPEAT CXR NO CHANGE SPO2 97% ON NASAL O2 CHEST DISTANT BUT CLEAR S1S2 BS+ NO CALF TENDERNESS LABS/MEDS/NOTES REVIEWED ?TRALI VS VOLUME OVERLOAD FROM TRANSFUSION APPEARS STABLE ANEMIA FE DEF REFUSES DIAGNOSTIC WORKUP HAVE CHANGED TO XOPENEX WILL CONTINUE O2/ R CARLOS A POLLARD Problem List - Problems (1) Respiratory failure with hypercapnia Code(s): J96.92 - RESPIRATORY FAILURE, UNSPECIFIED WITH HYPERCAPNIA (2) Anemia Code(s): D64.9 - ANEMIA, UNSPECIFIED Qualifiers: Anemia type: iron deficiency Iron deficiency anemia type: chronic blood loss Qualified Code(s): D50.0 - Iron deficiency anemia secondary to blood loss (chronic) (3) CHF (congestive heart failure) Code(s): I50.9 - HEART FAILURE, UNSPECIFIED Qualifiers: (4) COPD (chronic obstructive pulmonary disease) Code(s): J44.9 - CHRONIC OBSTRUCTIVE PULMONARY DISEASE, UNSPECIFIED Qualifiers: COPD type: unspecified COPD Qualified Code(s): J44.9 - Chronic obstructive pulmonary disease, unspecified (5) SOB (shortness of breath) Code(s): R06.02 - SHORTNESS OF BREATH (6) Acute on chronic renal failure Code(s): N17.9 - ACUTE KIDNEY FAILURE, UNSPECIFIED; N18.9 - CHRONIC KIDNEY DISEASE, UNSPECIFIED Qualifiers: Chronic kidney disease stage: stage 3 (moderate)
--- NOTE | 2019-06-14 13:04 | CON.NEURO ---
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 Squamous cell cancer facial MOHs excision. Ectopic surgery. Bladder suspension surgery. 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 Uncoded 06/11/19 13:07 hyper - Home Medications Home Medications: Ambulatory Orders Aspirin [ASA -] 81 mg PO DAILY tab.chew 07/22/17 Atorvastatin Ca [Lipitor] 20 mg PO HS tablet 07/22/17 Carvedilol [Coreg -] 3.125 mg PO BID tablet 07/22/17 Melatonin 5 mg PO HS PRN tab 07/22/17 Losartan Potassium 50 mg PO DAILY 06/11/19 Furosemide [Lasix] 20 PO DAILY 06/12/19 Physical Exam-Neuro Vital Signs: Vital Signs Temperature 98.5 F 06/14/19 10:18 Pulse Rate 92 H 06/14/19 10:18 Respiratory Rate 20 06/14/19 10:18 Blood Pressure 132/79 06/14/19 10:18 O2 Sat by Pulse Oximetry (%) 98 06/14/19 09:00 Labs: CBC, BMP 06/14/19 05:30 06/14/19 05:30 INR, PTT INR 1.02 (0.83-1.09) 06/11/19 13:33 Assessment/Plan Thank you so much for consult , Patient was seen for Dr Agosto. cc confusion and insomnia during night HPI 88 year old female history of CHF,COPD,HTN,ANEMIA,CKD. She came to hospital for low Hb and had work up doing and blood tranfusion. Nereida never has any brain ct or mri done and never been diagnosed with MCI or Stroke. Patient is having difficulty sleeping at hospital and as soon as sun comes out in morning she sleeps. Patient has tried melatonin and it is not helping her now. There is no other focal neurological symptoms including dysphagia, dysarthria or diplopia. Medical History as above. Allergies/Adverse Reactions: Allergies Allergy/AdvReac Type Severity Reaction Status Date / Time erythromycin base Allergy Verified 06/11/19 13:07 [Erythromycin Base] prednisone AdvReac Verified 06/11/19 13:07 accromycin AdvReac Mild makes pt. Uncoded 06/11/19 13:07 hyper Home Medications: Aspirin [ASA -] 81 mg PO DAILY tab.chew 07/22/17 Atorvastatin Ca [Lipitor] 20 mg PO HS tablet 07/22/17 Carvedilol [Coreg -] 3.125 mg PO BID tablet 07/22/17 Melatonin 5 mg PO HS PRN tab 07/22/17 Losartan Potassium 50 mg PO DAILY 06/11/19 Furosemide [Lasix] 20 PO DAILY 06/12/19 ROS,FH,SH reviewed in chart NEUROLOGICAL EXAMINATION Alert oriented x 3( missed exact day of week), neck is supple afebrile vss eomi, pupils reactive no face asymmetry moving all ext sensation is normal reflex are grade [address] head is not done Assessment/Plan 88 year old female history of CHF,COPD,HTN,ANEMIA,CKD. She is having sundowning and insomnia during hospital stay, no prior diagnosis is cognitive impairment. I suspect she may have MCI and now insomnia and agitation secondary to intercurrent illness . Plan: I suggest to add benadryl 12.5 mg qhs, may increase to 25 if not effective - ct head and b12,folate tsh - advice to follow up outpatient Thanking you so much Eleazar Aponte MD
[2019-06-14] MEDS: LEVALBUTEROL HCL 0.63 MG/3 ML VIAL.NEB. IH SCH ×2 (14:19→20:40)
[2019-06-14] MEDS: diphenhydrAMINE HCL 12.5 MG/5 ML UNIT-DOSE CUPS PO SCH (22:05)
[2019-06-14] MEDS: MONTELUKAST NA 10 MG TABLET PO SCH (22:05)
[2019-06-14] MEDS: ATORVASTATIN CA 20 MG TABLET (FP) PO SCH (22:05)
[2019-06-15 07:47] LABS: HEMATOCRIT 29.7 % (32.4-45.2); HEMOGLOBIN 9.2 GM/dL (10.7-15.3); MCH 26.1 pg (25.7-33.7); MCHC 30.9 g/dl (32.0-36.0); MEAN CELL VOLUME 84.7 fl (80-96); MEAN PLT VOLUME 8.3 fl (7.5-11.1); PLATELET COUNT 335 K/MM3 (134-434); RBC 3.51 M/mm3 (3.60-5.2); WHITE BLOOD COUNT 13.1 K/mm3 (4.0-10.0)
[2019-06-15] MEDS: LEVALBUTEROL HCL 0.63 MG/3 ML VIAL.NEB. IH SCH ×3 (08:10→22:03)
[2019-06-15 08:23] LABS: ALBUMIN 2.7 g/dl (3.4-5.0); BILIRUBIN,TOTAL 0.6 mg/dL (0.2-1); BLOOD UREA NITROGEN 42.8 mg/dL (7-18); CALCIUM 8.4 mg/dL (8.5-10.1); CREATININE 1.7 mg/dL (0.55-1.3); POTASSIUM 3.8 mmol/L (3.5-5.1); TOT PROT 5.7 g/dl (6.4-8.2)
[2019-06-15] MEDS: PANTOPRAZOLE 40 MG TABLET PO SCH ×2 (09:40→21:28)
[2019-06-15] MEDS: CARVEDILOL 3.125 MG TABLET (FP) PO SCH ×2 (09:40→21:28)
--- NOTE | 2019-06-15 09:43 | PN ---
Progress Note, Physician Chief Complaint: Iron Deficiency Anemia COPD History of Present Illness: Previous notes and events reviewed awake and alert NAD Head CT scan results reviewed BUN/Cr trending down Hg stable at 9.2 denies SOB with exertion or chest pain - Current Medication List Current Medications: Active Medications Acetaminophen (Tylenol -) 650 mg PO Q6H PRN PRN Reason: PAIN LEVEL 4 - 6 Atorvastatin Calcium (Lipitor -) 20 mg PO HS [facility] Last Admin: 06/14/19 22:05 Dose: 20 mg Carvedilol (Coreg -) 3.125 mg PO BID [facility] Last Admin: 06/15/19 09:40 Dose: 3.125 mg Diphenhydramine HCl (Benadryl Oral Solution -) 12.5 mg PO HS [facility] Last Admin: 06/14/19 22:05 Dose: 12.5 mg Levalbuterol HCl (Xopenex) 0.63 mg IH RTID [facility] Last Admin: 06/15/19 08:10 Dose: 0.63 mg Melatonin (Melatonin) 5 mg PO HS PRN PRN Reason: INSOMNIA Last Admin: 06/13/19 21:59 Dose: 5 mg Montelukast Sodium (Singulair -) 10 mg PO HS [facility] Last Admin: 06/14/19 22:05 Dose: 10 mg Pantoprazole Sodium (Protonix -) 40 mg PO BID [facility] Last Admin: 06/15/19 09:40 Dose: 40 mg - Objective Vital Signs: Vital Signs Temperature 98.3 F 06/15/19 06:14 Pulse Rate 92 H 06/15/19 06:14 Respiratory Rate 06/15/19 06:14 Blood Pressure 146/74 06/15/19 06:14 O2 Sat by Pulse Oximetry (%) 90 L 06/15/19 08:05 Constitutional: Yes: No Distress, Calm Eyes: Yes: Conjunctiva Clear HENT: Yes: Atraumatic Cardiovascular: Yes: Regular Rate and Rhythm Respiratory: Yes: Regular, Diminished Gastrointestinal: Yes: Normal Bowel Sounds, Soft Genitourinary: Yes: Stroud Present Musculoskeletal: Yes: Muscle Weakness Extremities: Yes: WNL Edema: No Neurological: Yes: Alert, Oriented Psychiatric: Yes: Alert, Oriented Labs: CBC, BMP 06/15/19 06:40 06/15/19 06:40 INR, PTT INR 1.02 (0.83-1.09) 06/11/19 13:33 Problem List - Problems (1) Anemia Assessment/Plan: -GI and Hematology on board -s/p 2U PRBC transfusion on admission -s/p Venofer infusion -Hg 9.2 -monitor Hg daily -transfuse for Hg <7.0 to avoid fluid overload -Anemia profile shows low Iron 12, normal TIBC, low Ferritin -after Venofer infusion iron levels increase from 12~77 -Pantoprazole BID -Stool OB neg Code(s): D64.9 - ANEMIA, UNSPECIFIED Qualifiers: Anemia type: iron deficiency Iron deficiency anemia type: chronic blood loss Qualified Code(s): D50.0 - Iron deficiency anemia secondary to blood loss (chronic) (2) Family history of colon cancer Assessment/Plan: -GI on board -family is refusing further GI work-up (EGD/colonoscopy) in setting of anemia Code(s): Z80.0 - FAMILY HISTORY OF MALIGNANT NEOPLASM OF DIGESTIVE ORGANS (3) Respiratory failure with hypercapnia Assessment/Plan: -Pulmonary on board -Montelukast HS -O2 via NC -keep SpO2 >90% -repeat CXR on 06/13/19 shows nodular intersitial infiltrates through both lungs -Bipap prn -bronchodilators Code(s): J96.92 - RESPIRATORY FAILURE, UNSPECIFIED WITH HYPERCAPNIA (4) Acute on chronic renal failure Assessment/Plan: -BUN/Cr 42.8/1.7 -renal on board -monitor renal function daily -Renal US shows small bilateral renal simple cysts, complex left renal cyst 2.9x2.5cm with a thin septation Code(s): N17.9 - ACUTE KIDNEY FAILURE, UNSPECIFIED; N18.9 - CHRONIC KIDNEY DISEASE, UNSPECIFIED Qualifiers: Chronic kidney disease stage: stage 3 (moderate) (5) CHF (congestive heart failure) Assessment/Plan: -1L fluid restriction -low Na diet -daily weights -strict I&Os Code(s): I50.9 - HEART FAILURE, UNSPECIFIED Qualifiers: (6) HTN (hypertension) Assessment/Plan: -Carvedilol -low Na diet Code(s): I10 - ESSENTIAL (PRIMARY) HYPERTENSION (7) Sleep disturbance Assessment/Plan: -Melatonin HS discontinued, start Benadryl 12.5mg HS -Neurology on board -Head CT scan shows no evidence of acute ICH, edema, midline shift, mass effect or skull fracture, bilateral basal ganglia thalamic lacunar infarcts, supratentorial chronic moderate periventricular , subcortical white matter microangiopathic ischemic changes, gliosis, no evidence of hydrocephalus, no CT evidence of acute territorial ischemic changes -spoke with radiologist and unable to say if thalamic lacunar infarcts are acute or chronic, no previous CT scan for review, will order Brain MRI Code(s): G47.9 - SLEEP DISORDER, UNSPECIFIED (8) HLD (hyperlipidemia) Assessment/Plan: -Atorvastatin Code(s): E78.5 - HYPERLIPIDEMIA, UNSPECIFIED (9) COPD (chronic obstructive pulmonary disease) Assessment/Plan: -Pulmonary on board -Montelukast HS -O2 via NC -keep SpO2 >90% -repeat CXR on 06/13/19 shows nodular intersitial infiltrates through both lungs -Bipap prn -bronchodilators Code(s): J44.9 - CHRONIC OBSTRUCTIVE PULMONARY DISEASE, UNSPECIFIED Qualifiers: COPD type: unspecified COPD Qualified Code(s): J44.9 - Chronic obstructive pulmonary disease, unspecified Assessment/Plan see problem list dvt ppx
--- NOTE | 2019-06-15 10:54 | PN ---
Progress Note (short form) - Note Progress Note: PULMONARY Denies shortness of breath, cough or wheezing. Saturating 93% on room air. Vital Signs Period Temp Pulse Resp BP Sys/Goodrich Pulse Ox Last 24 Hr 97.8 F-98.6 F 89-96 20-22 124-146/65-77 90-98 Gen: NAD in chair Heart: RRR Lung: decreased breath sounds at the bases Abd: soft, nontender Ext: no edema CBC, BMP 06/15/19 06:40 06/15/19 06:40 Active Medications Acetaminophen (Tylenol -) 650 mg PO Q6H PRN PRN Reason: PAIN LEVEL 4 - 6 Atorvastatin Calcium (Lipitor -) 20 mg PO HS [facility] Last Admin: 06/14/19 22:05 Dose: 20 mg Carvedilol (Coreg -) 3.125 mg PO BID [facility] Last Admin: 06/15/19 09:40 Dose: 3.125 mg Diphenhydramine HCl (Benadryl Oral Solution -) 12.5 mg PO HS [facility] Last Admin: 06/14/19 22:05 Dose: 12.5 mg Levalbuterol HCl (Xopenex) 0.63 mg IH RTID [facility] Last Admin: 06/15/19 08:10 Dose: 0.63 mg Montelukast Sodium (Singulair -) 10 mg PO HS [facility] Last Admin: 06/14/19 22:05 Dose: 10 mg Pantoprazole Sodium (Protonix -) 40 mg PO BID [facility] Last Admin: 06/15/19 09:40 Dose: 40 mg A/P Anemia s/p PRBC transfusion r/o TRALI vs TACO LV Distolic Dysfunction COPD Acute on Chronic Kidney Injury Hyperlipidemia - repeat CXR in AM - O2 as needed to keep SpO2 >90% - inhaled bronchodilators - DVT prophylaxis
--- NOTE | 2019-06-15 15:52 | PN ---
Progress Note, Physician History of Present Illness: Pt seen and examined at bedside. She is awake and appears comfortable. - Current Medication List Current Medications: Active Medications Acetaminophen (Tylenol -) 650 mg PO Q6H PRN PRN Reason: PAIN LEVEL 4 - 6 Atorvastatin Calcium (Lipitor -) 20 mg PO [facility] Last Admin: 06/14/19 22:05 Dose: 20 mg Carvedilol (Coreg -) 3.125 mg PO BID [facility] Last Admin: 06/15/19 09:40 Dose: 3.125 mg Diphenhydramine HCl (Benadryl Oral Solution -) 12.5 mg PO [facility] Last Admin: 06/14/19 22:05 Dose: 12.5 mg Levalbuterol HCl (Xopenex) 0.63 mg IH RTID [facility] Last Admin: 06/15/19 14:02 Dose: Not Given Montelukast Sodium (Singulair -) 10 mg PO [facility] Last Admin: 06/14/19 22:05 Dose: 10 mg Pantoprazole Sodium (Protonix -) 40 mg PO BID [facility] Last Admin: 06/15/19 09:40 Dose: 40 mg - Objective Vital Signs: Vital Signs Temperature 98.4 F 06/15/19 13:25 Pulse Rate 92 H 06/15/19 13:25 Respiratory Rate 20 06/15/19 13:25 Blood Pressure 118/57 L 06/15/19 13:25 O2 Sat by Pulse Oximetry (%) 90 L 06/15/19 08:05 Constitutional: Yes: Calm Eyes: Yes: Conjunctiva Clear HENT: Yes: Atraumatic Neck: Yes: Supple Cardiovascular: Yes: S1, S2 Respiratory: Yes: On Nasal O2 Gastrointestinal: Yes: Soft Genitourinary: Yes: Stroud Present Musculoskeletal: Yes: Muscle Weakness Edema: No Neurological: Yes: Oriented Psychiatric: Yes: Oriented Labs: CBC, BMP 06/15/19 06:40 06/15/19 06:40 INR, PTT INR 1.02 (0.83-1.09) 06/11/19 13:33 Problem List - Problems (1) Anemia Code(s): D64.9 - ANEMIA, UNSPECIFIED Qualifiers: Anemia type: iron deficiency Iron deficiency anemia type: chronic blood loss Qualified Code(s): D50.0 - Iron deficiency anemia secondary to blood loss (chronic) (2) CKD (chronic kidney disease) Code(s): N18.9 - CHRONIC KIDNEY DISEASE, UNSPECIFIED Qualifiers: Chronic kidney disease stage: stage 3 (moderate) Qualified Code(s): N18.3 - Chronic kidney disease, stage 3 (moderate) Assessment/Plan Current Medications Generic Name Dose Route Start Last Admin Trade Name Freq PRN Reason Stop Dose Admin Acetaminophen 650 mg 06/11/19 16:47 Tylenol - PO Q6H PRN PAIN LEVEL 4 - 6 Atorvastatin Calcium 20 mg 06/11/19 22:00 06/14/19 22:05 Lipitor - PO 20 mg HS [facility] Administration Carvedilol 3.125 mg 06/11/19 22:00 06/15/19 09:40 Coreg - PO 3.125 mg BID [facility] Administration Diphenhydramine HCl 12.5 mg 06/14/19 22:00 06/14/19 22:05 Benadryl Oral Solution - PO 12.5 mg HS [facility] Administration Levalbuterol HCl 0.63 mg 06/14/19 14:00 06/15/19 14:02 Xopenex IH Not Given RTID [facility] Montelukast Sodium 10 mg 06/11/19 22:00 06/14/19 22:05 Singulair - PO 10 mg HS [facility] Administration Pantoprazole Sodium 40 mg 06/13/19 22:00 06/15/19 09:40 Protonix - PO 40 mg BID [facility] Administration Impression 1. dyspnea 2. CKD 3. CHF 4. hld 5. copd 6. HTN 7. anemia 8. renal cyst Plan - renal function stable - renal cyst should be followed as outpt - avoid nephrotoxins - monitor volume status - monitor hg Dr Jarquni
--- NOTE | 2019-06-15 16:00 | PN ---
Progress Note (short form) - Note Progress Note: HPI 88 year old female history of CHF,COPD,HTN,ANEMIA,CKD. She came to hospital for low Hb and had work up doing and blood tranfusion. Nereida never has any brain ct or mri done and never been diagnosed with MCI or Stroke. Patient is having difficulty sleeping at hospital and as soon as sun comes out in morning she sleeps. Patient has tried melatonin and it is not helping her now. Patient is feeling better after taking benadryl 12.5 mg , she was able to sleep through night NEUROLOGICAL EXAMINATION Alert oriented x 3( missed exact day of week), neck is supple afebrile vss eomi, pupils reactive no face asymmetry moving all ext sensation is normal reflex are grade [address] head is showed white matter disease mri showed multiple small lacunar multi lobe infarct Assessment/Plan 88 year old female history of CHF,COPD,HTN,ANEMIA,CKD. She is having sundowning , suspect mci vs early demenita. On questioning further there is suggestion of memory difficulty at home. Plan: continue benadryl, and consider aspirin once gi condition is stable - carotid ultrasound - add aricept 5 mg qhs - consider cardiology consult for cardiac work up as she has bi hemispheric stroke Thanking you so much Eleazar Aponte MD
[2019-06-15] MEDS: DONEPEZIL HCL 5 MG TABLET (FP) PO SCH (17:00)
[2019-06-15 17:06] LABS: TRANSGLUTAMINASE IGA < 2 U/mL (0-3); TRANSGLUTAMINASE IGG < 2 U/mL (0-5)
[2019-06-15] MEDS: diphenhydrAMINE HCL 12.5 MG/5 ML UNIT-DOSE CUPS PO SCH (21:27)
[2019-06-15] MEDS: MONTELUKAST NA 10 MG TABLET PO SCH (21:28)
[2019-06-15] MEDS: ATORVASTATIN CA 20 MG TABLET (FP) PO SCH (21:28)
--- NOTE | 2019-06-15 21:49 | PN ---
Progress Note (short form) - Note Progress Note: NEUROLOGY PROGRESS: Events reviewed. Patient examined. Dr. Vital's coverage is greatly appreciated. This 88 yo RH woman with h/o HTN, Chol, ASHD and AFib is mainatained on ASA, lasix, atorvastatin, carvedilol and losartan. Admitted with SOB presumed due to severe anemia and improved after transfusions. Found to be confused at night. Patient is unsure why she has a Stroud catheter. MRI shows moderate atrophy and scattered microvascular changes including B/L thalamic lacunar infarcts. WBC trending down but still 13 K Urine WBC= 152, TSH and B12 normal TAZ: Neck supple. No bruits Cor Irreg. + Stroud catheter NEURO: Awake, alert, cooperative. O x [facility], July 2019, [place]. Recalls 2 of 3 at 3 min. + Glabella Full mcdowell, no facial, gag OK No drift. Normal strength and JEFF's. Absent AJ's Reduced Vibration in feet IMP: Mild B/L cerebral dysfunction Worsened by Toxic-metabolic encephalopathy probably due to UTI SUGGEST: Repeat UA with C&S ID consult for consideration of antibiotics Mobilize patient OO Bed to chair and PT for gait assessment and gait training, probably with a walker client services representative Thank you very much, Geovanny Agosto MD
[2019-06-16 07:07] LABS: HEMATOCRIT 29.5 % (32.4-45.2); HEMOGLOBIN 9.4 GM/dL (10.7-15.3); MCH 26.7 pg (25.7-33.7); MCHC 31.9 g/dl (32.0-36.0); MEAN CELL VOLUME 83.7 fl (80-96); MEAN PLT VOLUME 8.4 fl (7.5-11.1); PLATELET COUNT 334 K/MM3 (134-434); RBC 3.52 M/mm3 (3.60-5.2); RDW 21.6 % (11.6-15.6); WHITE BLOOD COUNT 10.7 K/mm3 (4.0-10.0)
[2019-06-16 07:32] LABS: ALBUMIN 2.6 g/dl (3.4-5.0); BILIRUBIN,TOTAL 0.6 mg/dL (0.2-1); CALCIUM 8.4 mg/dL (8.5-10.1); CREATININE 1.7 mg/dL (0.55-1.3); POTASSIUM 3.9 mmol/L (3.5-5.1); TOT PROT 5.4 g/dl (6.4-8.2)
[2019-06-16] MEDS: PANTOPRAZOLE 40 MG TABLET PO SCH ×2 (09:42→22:22)
[2019-06-16] MEDS: CARVEDILOL 3.125 MG TABLET (FP) PO SCH ×2 (09:42→22:23)
[2019-06-16] MEDS: DONEPEZIL HCL 5 MG TABLET (FP) PO SCH (09:42)
[2019-06-16] MEDS: LEVALBUTEROL HCL 0.63 MG/3 ML VIAL.NEB. IH SCH ×2 (10:40→18:10)
--- NOTE | 2019-06-16 11:07 | PN ---
Progress Note (short form) - Note Progress Note: ID CONSULT DICTATED PROBABLE TRANSFUSION RELATED LUNG INJURY DOUBT PNEUMONIA OBSERVE OFF ANTIBIOTICS
--- NOTE | 2019-06-16 11:49 | PN ---
Progress Note (short form) - Note Progress Note: PULMONARY CXR this AM showing improvement. Denies shortness of breath, cough or wheezing. Saturating 93% on room air. Vital Signs Period Temp Pulse Resp BP Sys/Goodrich Pulse Ox Last 24 Hr 97.5 F-98.4 F 83-95 20-48 118-138/57-77 98 Gen: NAD in chair Heart: RRR Lung: decreased breath sounds at the bases Abd: soft, nontender Ext: no edema CBC, BMP 06/16/19 06:50 06/16/19 06:50 Active Medications Acetaminophen (Tylenol -) 650 mg PO Q6H PRN PRN Reason: PAIN LEVEL 4 - 6 Atorvastatin Calcium (Lipitor -) 20 mg PO [facility] Last Admin: 06/15/19 21:28 Dose: 20 mg Carvedilol (Coreg -) 3.125 mg PO BID [facility] Last Admin: 06/16/19 09:42 Dose: 3.125 mg Diphenhydramine HCl (Benadryl Oral Solution -) 12.5 mg PO [facility] Last Admin: 06/15/19 21:27 Dose: 12.5 mg Donepezil HCl (Aricept -) 5 mg PO DAILY [facility] Last Admin: 06/16/19 09:42 Dose: 5 mg Levalbuterol HCl (Xopenex) 0.63 mg IH RTID [facility] Last Admin: 06/16/19 10:40 Dose: 0.63 mg Montelukast Sodium (Singulair -) 10 mg PO HS [facility] Last Admin: 06/15/19 21:28 Dose: 10 mg Pantoprazole Sodium (Protonix -) 40 mg PO BID [facility] Last Admin: 06/16/19 09:42 Dose: 40 mg A/P Anemia s/p PRBC transfusion 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
--- NOTE | 2019-06-16 12:19 | CONS ---
INFECTIOUS DISEASE CONSULTATION DATE OF CONSULTATION: DATE OF DICTATION: 06/16/2019 HISTORY: The patient is an 88-year-old female who was evaluated for possible pneumonia and urinary tract infection. The patient was admitted from home with complaints of generalized weakness and shortness of breath. As an outpatient, she was found to have a hemoglobin of 5.8. She was transferred to the emergency room where she was admitted. She was transfused packed red blood cells. GI and Hematology were consulted. After the blood transfusion, she developed nodular infiltrates at the lung bases bilaterally. She was also noted to have an elevated white blood cell count of 22.5. She was seen in consultation by Pulmonary and felt to have a transfusion-related acute lung injury versus transfusion-associated circulatory overload. At the present time, she is awake and alert. She is out of bed in chair. She is in no acute respiratory distress. Her O2 saturations have been 97 on room air. She denies any chest pain or shortness of breath. No complaints of cough or sputum production. No hemoptysis. She lives at home. She denies any ill contacts. She is a nonsmoker. No recent travel. No recent hospitalizations. PAST MEDICAL HISTORY: Positive for congestive heart failure, COPD, hypertension, chronic kidney disease. ALLERGIES: ERYTHROMYCIN and PREDNISONE. MEDICATIONS: Include Lipitor, Coreg, Aricept, Singulair, Protonix. SOCIAL HISTORY: She resides in the community. Nonsmoker. Nondrinker. SYSTEMS REVIEW: Neurologic: No loss of consciousness, seizure activity, or focal weakness. Cardiac: Negative chest pain or palpitations. Respiratory: As per HPI. Gastrointestinal: Negative vomiting or diarrhea. Genitourinary: Negative for dysuria or hematuria. LABORATORY DATA: White count 10.7, hematocrit 29.5, platelets 334, creatinine 1.7. Urinalysis shows 152 white cells. Chest x-ray, bibasilar changes. PHYSICAL EXAMINATION: General: She is awake. Out of bed to chair. She is in no acute distress. Her breathing is nonlabored. Vital Signs: Temperature 98.2, blood pressure 138/72, pulse 83 regular, respirations 20 per minute. HEENT: Sclerae anicteric. Heart: Sounds S1, S2. Lungs: Clear bilaterally. No rales, rhonchi, or wheezing. Abdomen: Obese, soft, nontender. No suprapubic or flank tenderness. Extremities: Positive for edema. IMPRESSION: 1. Probable transfusion-related lung injury. 2. Doubt pneumonia. 3. Pyuria without urinary tract symptoms. PLAN: No pulmonary symptoms to suggest an acute pulmonary infection. Patient denies any urinary tract complaints. We will observe off antibiotic therapy. Case discussed with Pulmonary. Discussed with patient's daughter present at the time of the examination. Thank you for the kind referral. MARY AVENDAÑO M.D. [id number]
--- NOTE | 2019-06-16 13:43 | PN ---
Progress Note, Physician Chief Complaint: Iron Deficiency Anemia COPD History of Present Illness: Previous notes and events reviewed awake and alert NAD Brain MRI results reviewed, cardiology consult placed and will transfer to [facility] same at 1.7 denies chest pain or SOB - Current Medication List Current Medications: Active Medications Acetaminophen (Tylenol -) 650 mg PO Q6H PRN PRN Reason: PAIN LEVEL 4 - 6 Atorvastatin Calcium (Lipitor -) 20 mg PO HS [facility] Last Admin: 06/15/19 21:28 Dose: 20 mg Carvedilol (Coreg -) 3.125 mg PO BID [facility] Last Admin: 06/16/19 09:42 Dose: 3.125 mg Diphenhydramine HCl (Benadryl Oral Solution -) 12.5 mg PO HS [facility] Last Admin: 06/15/19 21:27 Dose: 12.5 mg Donepezil HCl (Aricept -) 5 mg PO DAILY [facility] Last Admin: 06/16/19 09:42 Dose: 5 mg Levalbuterol HCl (Xopenex) 0.63 mg IH RTID [facility] Last Admin: 06/16/19 10:40 Dose: 0.63 mg Montelukast Sodium (Singulair -) 10 mg PO HS [facility] Last Admin: 06/15/19 21:28 Dose: 10 mg Pantoprazole Sodium (Protonix -) 40 mg PO BID [facility] Last Admin: 06/16/19 09:42 Dose: 40 mg - Objective Vital Signs: Vital Signs Temperature 97.9 F 06/16/19 12:00 Pulse Rate 91 H 06/16/19 12:00 Respiratory Rate 20 06/16/19 12:00 Blood Pressure 148/90 06/16/19 12:00 O2 Sat by Pulse Oximetry (%) 98 06/15/19 21:00 Constitutional: Yes: No Distress, Calm Eyes: Yes: Conjunctiva Clear HENT: Yes: Atraumatic Cardiovascular: Yes: Regular Rate and Rhythm Respiratory: Yes: Regular, Diminished Gastrointestinal: Yes: Normal Bowel Sounds, Soft Musculoskeletal: Yes: Muscle Weakness Extremities: Yes: WNL Edema: No Neurological: Yes: Alert, Oriented, Other (no facial droop, no slurred speech, no weakness in extremities noted) Psychiatric: Yes: Alert, Oriented Labs: CBC, BMP 06/16/19 06:50 06/16/19 06:50 INR, PTT INR 1.02 (0.83-1.09) 06/11/19 13:33 Problem List - Problems (1) Anemia Assessment/Plan: -GI and Hematology on board -s/p 2U PRBC transfusion on admission -s/p Venofer infusion -Hg 9.4 -monitor Hg daily -transfuse for Hg <7.0 to avoid fluid overload -Anemia profile shows low Iron 12, normal TIBC, low Ferritin -after Venofer infusion iron levels increase from 12~77 -Pantoprazole BID -Stool OB neg Code(s): D64.9 - ANEMIA, UNSPECIFIED Qualifiers: Anemia type: iron deficiency Iron deficiency anemia type: chronic blood loss Qualified Code(s): D50.0 - Iron deficiency anemia secondary to blood loss (chronic) (2) Family history of colon cancer Assessment/Plan: -GI on board -family is refusing further GI work-up (EGD/colonoscopy) in setting of anemia Code(s): Z80.0 - FAMILY HISTORY OF MALIGNANT NEOPLASM OF DIGESTIVE ORGANS (3) Respiratory failure with hypercapnia Assessment/Plan: -Pulmonary on board -Montelukast HS -O2 via NC -keep SpO2 >90% -repeat CXR on 06/13/19 shows nodular intersitial infiltrates through both lungs -repeat CXR shows improvement, still large heart with bibasilar changes -Bipap prn -bronchodilators Code(s): J96.92 - RESPIRATORY FAILURE, UNSPECIFIED WITH HYPERCAPNIA (4) Acute on chronic renal failure Assessment/Plan: -BUN/Cr 41.0/1.7 -renal on board -monitor renal function daily -Renal US shows small bilateral renal simple cysts, complex left renal cyst 2.9x2.5cm with a thin septation Code(s): N17.9 - ACUTE KIDNEY FAILURE, UNSPECIFIED; N18.9 - CHRONIC KIDNEY DISEASE, UNSPECIFIED Qualifiers: Chronic kidney disease stage: stage 3 (moderate) (5) CHF (congestive heart failure) Assessment/Plan: -1L fluid restriction -low Na diet -daily weights -strict I&Os Code(s): I50.9 - HEART FAILURE, UNSPECIFIED Qualifiers: (6) HTN (hypertension) Assessment/Plan: -Carvedilol -low Na diet Code(s): I10 - ESSENTIAL (PRIMARY) HYPERTENSION (7) Sleep disturbance Assessment/Plan: -Melatonin HS discontinued, start Benadryl 12.5mg HS -Neurology on board -Head CT scan shows no evidence of acute ICH, edema, midline shift, mass effect or skull fracture, bilateral basal ganglia thalamic lacunar infarcts, supratentorial chronic moderate periventricular , subcortical white matter microangiopathic ischemic changes, gliosis, no evidence of hydrocephalus, no CT evidence of acute territorial ischemic changes -spoke with radiologist and unable to say if thalamic lacunar infarcts are acute or chronic, no previous CT scan for review, will order Brain MRI Code(s): G47.9 - SLEEP DISORDER, UNSPECIFIED (8) HLD (hyperlipidemia) Assessment/Plan: -Atorvastatin -lipid panel Code(s): E78.5 - HYPERLIPIDEMIA, UNSPECIFIED (9) COPD (chronic obstructive pulmonary disease) Assessment/Plan: -Pulmonary on board -Montelukast HS -O2 via NC -keep SpO2 >90% -repeat CXR on 06/13/19 shows nodular intersitial infiltrates through both lungs -Bipap prn -bronchodilators -repeat CXR shows improvement, still large heart with bibasilar changes Code(s): J44.9 - CHRONIC OBSTRUCTIVE PULMONARY DISEASE, UNSPECIFIED Qualifiers: COPD type: unspecified COPD Qualified Code(s): J44.9 - Chronic obstructive pulmonary disease, unspecified (10) Lacunar infarct, acute Assessment/Plan: -Transfer to telemetry -Cardiology consult -Head CT scan shows no evidence of acute ICH, edema, midline shift, mass effect or skull fracture, bilateral basal ganglia thalamic lacunar infarcts, supratentorial chronic moderate periventricular , subcortical white matter microangiopathic ischemic changes, gliosis, no evidence of hydrocephalus, no CT evidence of acute territorial ischemic changes -Brain MRI shows generalized volume loss and extensive periventricular chronic microvascular ischemic disease changes, chronic lacunar infarct in the left frontal lobe, centrum semiovale as well as in left and right thalamus, acute/ subacute lacunar infarcts in the left occipital lobe, right parietal occipital junction, right and left frontal high convexity, no mass lesion or acute intracranial hemorrhage -lipid panel -neuro checks q4h -Carotid US shows intimal thickening in right common carotid artery and small plaques distally, moderately to large plaque with calcification at the right common carotid bifurcation/bulbwith 50-69% stenosis, there are multiple moderate size plaques in the left common carotid artery without evidence of hemodynamically significant stenosis, moderate to large plaque at the left common carotid bifurcation/bulb without evidence of hemodynamically significant stenosis -Atorvastatin -PT Code(s): I63.81 - OTHER CEREB INFRC DUE TO OCCLS OR STENOSIS OF SMALL ARTERY Assessment/Plan see problem list dvt ppx
--- NOTE | 2019-06-16 13:49 | PN ---
Progress Note, Physician - Current Medication List Current Medications: Active Medications Acetaminophen (Tylenol -) 650 mg PO Q6H PRN PRN Reason: PAIN LEVEL 4 - 6 Atorvastatin Calcium (Lipitor -) 20 mg PO HS [facility] Last Admin: 06/15/19 21:28 Dose: 20 mg Carvedilol (Coreg -) 3.125 mg PO BID [facility] Last Admin: 06/16/19 09:42 Dose: 3.125 mg Diphenhydramine HCl (Benadryl Oral Solution -) 12.5 mg PO HS [facility] Last Admin: 06/15/19 21:27 Dose: 12.5 mg Donepezil HCl (Aricept -) 5 mg PO DAILY [facility] Last Admin: 06/16/19 09:42 Dose: 5 mg Levalbuterol HCl (Xopenex) 0.63 mg IH RTID [facility] Last Admin: 06/16/19 10:40 Dose: 0.63 mg Montelukast Sodium (Singulair -) 10 mg PO HS [facility] Last Admin: 06/15/19 21:28 Dose: 10 mg Pantoprazole Sodium (Protonix -) 40 mg PO BID [facility] Last Admin: 06/16/19 09:42 Dose: 40 mg - Objective Vital Signs: Vital Signs Temperature 97.9 F 06/16/19 13:43 Pulse Rate 83 06/16/19 13:43 Respiratory Rate 20 06/16/19 13:43 Blood Pressure 109/52 L 06/16/19 13:43 O2 Sat by Pulse Oximetry (%) 98 06/15/19 21:00 Labs: CBC, BMP 06/16/19 06:50 06/16/19 06:50 INR, PTT INR 1.02 (0.83-1.09) 06/11/19 13:33 Problem List - Problems (1) Anemia Code(s): D64.9 - ANEMIA, UNSPECIFIED Qualifiers: Anemia type: iron deficiency Iron deficiency anemia type: chronic blood loss Qualified Code(s): D50.0 - Iron deficiency anemia secondary to blood loss (chronic) (2) Family history of colon cancer Code(s): Z80.0 - FAMILY HISTORY OF MALIGNANT NEOPLASM OF DIGESTIVE ORGANS (3) Respiratory failure with hypercapnia Code(s): J96.92 - RESPIRATORY FAILURE, UNSPECIFIED WITH HYPERCAPNIA (4) Acute on chronic renal failure Code(s): N17.9 - ACUTE KIDNEY FAILURE, UNSPECIFIED; N18.9 - CHRONIC KIDNEY DISEASE, UNSPECIFIED Qualifiers: Chronic kidney disease stage: stage 3 (moderate) (5) CHF (congestive heart failure) Code(s): I50.9 - HEART FAILURE, UNSPECIFIED Qualifiers: (6) HTN (hypertension) Code(s): I10 - ESSENTIAL (PRIMARY) HYPERTENSION (7) Sleep disturbance Code(s): G47.9 - SLEEP DISORDER, UNSPECIFIED (8) HLD (hyperlipidemia) Code(s): E78.5 - HYPERLIPIDEMIA, UNSPECIFIED (9) COPD (chronic obstructive pulmonary disease) Code(s): J44.9 - CHRONIC OBSTRUCTIVE PULMONARY DISEASE, UNSPECIFIED Qualifiers: COPD type: unspecified COPD Qualified Code(s): J44.9 - Chronic obstructive pulmonary disease, unspecified
[2019-06-16 17:26] LABS: EPI CELLS 1.1 /HPF (0-5/HPF); HYALINE CASTS 6 /lpf (0-8); URINE APPEARANCE CLOUDY; URINE BACTERIA 4767.8 /hpf (NEGATIVE); URINE BILIRUBIN NEGATIVE (NEGATIVE); URINE COLOR YELLOW; URINE GLUCOSE (UA) NEGATIVE (NEGATIVE); URINE KETONE NEGATIVE (NEGATIVE); URINE LEUK ESTERASE 2+ (NEGATIVE); URINE NITRITE NEGATIVE (NEGATIVE); URINE PROTEIN 1+ (NEGATIVE); URINE RBC 6 /hpf (0-4); URINE WBC 259 /hpf (0-5)
--- NOTE | 2019-06-16 18:03 | PN ---
Progress Note, Physician History of Present Illness: Pt seen and examined at bedside. She is now in tele for CVA. - Current Medication List Current Medications: Active Medications Acetaminophen (Tylenol -) 650 mg PO Q6H PRN PRN Reason: PAIN LEVEL 4 - 6 Atorvastatin Calcium (Lipitor -) 20 mg PO HS [facility] Last Admin: 06/15/19 21:28 Dose: 20 mg Carvedilol (Coreg -) 3.125 mg PO BID [facility] Last Admin: 06/16/19 09:42 Dose: 3.125 mg Diphenhydramine HCl (Benadryl Oral Solution -) 12.5 mg PO HS [facility] Last Admin: 06/15/19 21:27 Dose: 12.5 mg Donepezil HCl (Aricept -) 5 mg PO DAILY [facility] Last Admin: 06/16/19 09:42 Dose: 5 mg Levalbuterol HCl (Xopenex) 0.63 mg IH RTID [facility] Last Admin: 06/16/19 10:40 Dose: 0.63 mg Montelukast Sodium (Singulair -) 10 mg PO HS [facility] Last Admin: 06/15/19 21:28 Dose: 10 mg Pantoprazole Sodium (Protonix -) 40 mg PO BID [facility] Last Admin: 06/16/19 09:42 Dose: 40 mg - Objective Vital Signs: Vital Signs Temperature 98.1 F 06/16/19 17:26 Pulse Rate 87 06/16/19 17:26 Respiratory Rate 18 06/16/19 17:26 Blood Pressure 132/58 L 06/16/19 17:26 O2 Sat by Pulse Oximetry (%) 100 06/16/19 09:00 Constitutional: Yes: Calm Eyes: Yes: Conjunctiva Clear HENT: Yes: Atraumatic Neck: Yes: Supple Cardiovascular: Yes: S1, S2 Respiratory: Yes: CTA Bilaterally Gastrointestinal: Yes: Soft Genitourinary: Yes: [place] Present Musculoskeletal: Yes: WNL Edema: No Neurological: Yes: Oriented Labs: CBC, BMP 06/16/19 06:50 06/16/19 06:50 INR, PTT INR 1.02 (0.83-1.09) 06/11/19 13:33 Problem List - Problems (1) Anemia Code(s): D64.9 - ANEMIA, UNSPECIFIED Qualifiers: Anemia type: iron deficiency Iron deficiency anemia type: chronic blood loss Qualified Code(s): D50.0 - Iron deficiency anemia secondary to blood loss (chronic) (2) CKD (chronic kidney disease) Code(s): N18.9 - CHRONIC KIDNEY DISEASE, UNSPECIFIED Qualifiers: Chronic kidney disease stage: stage 3 (moderate) Qualified Code(s): N18.3 - Chronic kidney disease, stage 3 (moderate) Assessment/Plan Current Medications Generic Name Dose Route Start Last Admin Trade Name Freq PRN Reason Stop Dose Admin Acetaminophen 650 mg 06/11/19 16:47 Tylenol - PO Q6H PRN PAIN LEVEL 4 - 6 Atorvastatin Calcium 20 mg 06/11/19 22:00 06/15/19 21:28 Lipitor - PO 20 mg HS NICOLE Administration Carvedilol 3.125 mg 06/11/19 22:00 06/16/19 09:42 Coreg - PO 3.125 mg BID NICOLE Administration Diphenhydramine HCl 12.5 mg 06/14/19 22:00 06/15/19 21:27 Benadryl Oral Solution - PO 12.5 mg HS [facility]ICOLE Administration Donepezil HCl 5 mg 06/15/19 16:15 06/16/19 09:42 Aricept - PO 5 mg DAILY [facility] Administration Levalbuterol HCl 0.63 mg 06/14/19 14:00 06/16/19 10:40 Xopenex IH 0.63 mg RTID NICOLE Administration Montelukast Sodium 10 mg 06/11/19 22:00 06/15/19 21:28 Singulair - PO 10 mg HS [facility] Administration Pantoprazole Sodium 40 mg 06/13/19 22:00 06/16/19 09:42 Protonix - PO 40 mg BID [facility] Administration Impression 1. dyspnea 2. CKD 3. CHF 4. hld 5. copd 6. HTN 7. anemia 8. renal cyst Plan - renal function remains stable - can d/c abner - discussed with medical team - renal cyst to be followed - monitor hg Dr Jarquin
[2019-06-16] MEDS ORDERED: ACETAMINOPHEN 325 MG TABLET (FP) PO PRN (19:25)
[2019-06-16] MEDS ORDERED: HALOPERIDOL LACTATE 5 MG/ML IM ONE (19:25)
[2019-06-16] MEDS ORDERED: ALBUTEROL SO4 0.083% IH SOL 2.5 MG/3 ML VIAL.NEB. NEB PRN (19:38)
[2019-06-16] MEDS ORDERED: LEVALBUTEROL HCL 0.63 MG/3 ML VIAL.NEB. IH SCH (20:00)
[2019-06-16] MEDS: ATORVASTATIN CA 20 MG TABLET (FP) PO SCH (22:22)
[2019-06-16] MEDS: MONTELUKAST NA 10 MG TABLET PO SCH (22:22)
[2019-06-16] MEDS: diphenhydrAMINE HCL 12.5 MG/5 ML UNIT-DOSE CUPS PO SCH (22:23)
[2019-06-17 07:24] LABS: HEMATOCRIT 29.4 % (32.4-45.2); HEMOGLOBIN 9.3 GM/dL (10.7-15.3); MCH 26.8 pg (25.7-33.7); MCHC 31.6 g/dl (32.0-36.0); MEAN CELL VOLUME 84.7 fl (80-96); MEAN PLT VOLUME 8.9 fl (7.5-11.1); PLATELET COUNT 339 K/MM3 (134-434); RBC 3.47 M/mm3 (3.60-5.2)
[2019-06-17 07:49] LABS: ALBUMIN 2.5 g/dl (3.4-5.0); BILIRUBIN,TOTAL 0.4 mg/dL (0.2-1); BLOOD UREA NITROGEN 33.6 mg/dL (7-18); CALCIUM 8.4 mg/dL (8.5-10.1); CREATININE 1.6 mg/dL (0.55-1.3); POTASSIUM 3.7 mmol/L (3.5-5.1); TOT PROT 5.4 g/dl (6.4-8.2)
--- NOTE | 2019-06-17 08:58 | PN ---
Progress Note, Physician - Current Medication List Current Medications: Active Medications Acetaminophen (Tylenol -) 650 mg PO Q6H PRN PRN Reason: PAIN LEVEL 4 - 6 Albuterol Sulfate (Ventolin 0.083% Nebulizer Soln -) 1 amp NEB Q6H PRN PRN Reason: SHORT OF BREATH/WHEEZING Atorvastatin Calcium (Lipitor -) 20 mg PO HS [facility] Last Admin: 06/16/19 22:22 Dose: 20 mg Carvedilol (Coreg -) 3.125 mg PO BID [facility] Last Admin: 06/16/19 22:23 Dose: 3.125 mg Diphenhydramine HCl (Benadryl Oral Solution -) 12.5 mg PO HS [facility] Last Admin: 06/16/19 22:23 Dose: 12.5 mg Donepezil HCl (Aricept -) 5 mg PO DAILY [facility] Levalbuterol HCl (Xopenex) 0.63 mg IH RTID [facility] Montelukast Sodium (Singulair -) 10 mg PO [facility] Last Admin: 06/16/19 22:22 Dose: 10 mg Pantoprazole Sodium (Protonix -) 40 mg PO BID [facility] Last Admin: 06/16/19 22:22 Dose: 40 mg - Objective Vital Signs: Vital Signs Temperature 98.5 F 06/17/19 07:57 Pulse Rate 84 06/17/19 07:57 Respiratory Rate 18 06/17/19 07:57 Blood Pressure 165/91 06/17/19 07:57 O2 Sat by Pulse Oximetry (%) 97 06/17/19 07:57 Cardiovascular: Yes: S1, S2 Respiratory: Yes: Regular, CTA Bilaterally Gastrointestinal: Yes: Normal Bowel Sounds, Soft Neurological: Yes: Alert, Oriented Labs: CBC, BMP 06/17/19 05:53 06/17/19 05:53 INR, PTT INR 1.02 (0.83-1.09) 06/11/19 13:33 Problem List - Problems (1) Anemia Assessment/Plan: -GI and Hematology on board -s/p 2U PRBC transfusion on admission -s/p Venofer infusion -Hg 9.4 -monitor Hg daily -transfuse for Hg <7.0 to avoid fluid overload -Anemia profile shows low Iron 12, normal TIBC, low Ferritin -after Venofer infusion iron levels increase from 12~77 -Pantoprazole BID -Stool OB neg Code(s): D64.9 - ANEMIA, UNSPECIFIED Qualifiers: Anemia type: iron deficiency Iron deficiency anemia type: chronic blood loss Qualified Code(s): D50.0 - Iron deficiency anemia secondary to blood loss (chronic) (2) CHF (congestive heart failure) Assessment/Plan: -1L fluid restriction -low Na diet -daily weights -strict I&Os Code(s): I50.9 - HEART FAILURE, UNSPECIFIED Qualifiers: (3) CKD (chronic kidney disease) Assessment/Plan: -BUN/Cr monitor -renal on board -monitor renal function daily -Renal US shows small bilateral renal simple cysts, complex left renal cyst 2.9x2.5cm with a thin septation Code(s): N18.9 - CHRONIC KIDNEY DISEASE, UNSPECIFIED Qualifiers: Chronic kidney disease stage: stage 3 (moderate) Qualified Code(s): N18.3 - Chronic kidney disease, stage 3 (moderate) (4) COPD (chronic obstructive pulmonary disease) Assessment/Plan: -Pulmonary on board -Montelukast HS -O2 via NC -keep SpO2 >90% -repeat CXR on 06/13/19 shows nodular intersitial infiltrates through both lungs -Bipap prn -bronchodilators -repeat CXR shows improvement, still large heart with bibasilar changes Code(s): J44.9 - CHRONIC OBSTRUCTIVE PULMONARY DISEASE, UNSPECIFIED Qualifiers: COPD type: unspecified COPD Qualified Code(s): J44.9 - Chronic obstructive pulmonary disease, unspecified (5) Lacunar infarct, acute Assessment/Plan: -telemetry -Cardiology consult -Head CT scan shows no evidence of acute ICH, edema, midline shift, mass effect or skull fracture, bilateral basal ganglia thalamic lacunar infarcts, supratentorial chronic moderate periventricular , subcortical white matter microangiopathic ischemic changes, gliosis, no evidence of hydrocephalus, no CT evidence of acute territorial ischemic changes -Brain MRI shows generalized volume loss and extensive periventricular chronic microvascular ischemic disease changes, chronic lacunar infarct in the left frontal lobe, centrum semiovale as well as in left and right thalamus, acute/ subacute lacunar infarcts in the left occipital lobe, right parietal occipital junction, right and left frontal high convexity, no mass lesion or acute intracranial hemorrhage -lipid panel -neuro checks q4h -Carotid US shows intimal thickening in right common carotid artery and small plaques distally, moderately to large plaque with calcification at the right common carotid bifurcation/bulbwith 50-69% stenosis, there are multiple moderate size plaques in the left common carotid artery without evidence of hemodynamically significant stenosis, moderate to large plaque at the left common carotid bifurcation/bulb without evidence of hemodynamically significant stenosis -Atorvastatin -PT Code(s): I63.81 - OTHER CEREB INFRC DUE TO OCCLS OR STENOSIS OF SMALL ARTERY (6) Respiratory failure with hypercapnia Assessment/Plan: -Pulmonary on board -Montelukast HS -O2 via NC -keep SpO2 >90% -repeat CXR on 06/13/19 shows nodular intersitial infiltrates through both lungs -repeat CXR shows improvement, still large heart with bibasilar changes -Bipap prn -bronchodilators Code(s): J96.92 - RESPIRATORY FAILURE, UNSPECIFIED WITH HYPERCAPNIA
--- NOTE | 2019-06-17 10:10 | CON.CARD ---
Consult Consult Specialty:: Cardiology Referred by:: LILIYA Maria Reason for Consultation:: Multiple strokes - History of Present Illness Chief Complaint: Confusion History of Present Illness: 88 YOF with h/o CHF, COPD, former smoker, diastolic dysfunction, CKD, Fe def anemia, HTN, HLD, anxiety, depression presented to ED for fatigue and dyspnea w/ o chest pain, palpitations, near or true syncope, found to be profoundly anemia Hgb 5.8 on ASA 81 qd, denies melena or hematochezia, transfused 2 u PRBC, developed TRALI. She also developed confusion in hospital. Repeat carotid Duplex shows stable stenosis of right ICA 50-69%. MRI of brain shows multiple bihemispheric lacunar infarcts. 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 Squamous cell cancer facial MOHs excision. Ectopic surgery. Bladder suspension surgery. 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 Uncoded 06/11/19 13:07 hyper - Home Medications Home Medications: Ambulatory Orders Aspirin [ASA -] 81 mg PO DAILY tab.chew 07/22/17 Atorvastatin Ca [Lipitor] 20 mg PO HS tablet 07/22/17 Carvedilol [Coreg -] 3.125 mg PO BID tablet 07/22/17 Melatonin 5 mg PO HS PRN tab 07/22/17 Losartan Potassium 50 mg PO DAILY 06/11/19 Furosemide [Lasix] 20 PO DAILY 06/12/19 Review of Systems - Review of Systems Constitutional: reports: Weakness Respiratory: reports: SOB Neurological: reports: Confusion, Weakness Vital Signs: Vital Signs Temperature 98.5 F 06/17/19 07:57 Pulse Rate 84 06/17/19 07:57 Respiratory Rate 18 06/17/19 07:57 Blood Pressure 165/91 06/17/19 07:57 O2 Sat by Pulse Oximetry (%) 97 06/17/19 07:57 Constitutional: Yes: No Distress, Calm, Thin Neck: Yes: Supple Respiratory: Yes: Regular, CTA Bilaterally Gastrointestinal: Yes: Normal Bowel Sounds, Soft Cardiovascular: Yes: Regular Rate and Rhythm JVD: No Carotid Bruit: No Heart Sounds: Yes: S1, S2 Murmur: Yes: Systolic Murmur, Grade 1 Edema: No - Other Data Labs, Other Data: CBC, BMP 06/17/19 05:53 06/17/19 05:53 INR, PTT INR 1.02 (0.83-1.09) 06/11/19 13:33 NSR @ 82 PAC Echo: Report Reviewed Ejection Fraction %: LVEF > or = 40 % Imaging - Results Chest X-ray: Report Reviewed (Improving CXR) Problem List - Problems (1) Transfusion related acute lung injury (TRALI) Code(s): J95.84 - TRANSFUSION-RELATED ACUTE LUNG INJURY (TRALI) (2) Anemia due to gastrointestinal blood loss Code(s): D50.0 - IRON DEFICIENCY ANEMIA SECONDARY TO BLOOD LOSS (CHRONIC) (3) Carotid stenosis, bilateral Code(s): I65.23 - OCCLUSION AND STENOSIS OF BILATERAL CAROTID ARTERIES (4) HLD (hyperlipidemia) Code(s): E78.5 - HYPERLIPIDEMIA, UNSPECIFIED Qualifiers: Hyperlipidemia type: pure hypercholesterolemia Qualified Code(s): E78.00 - Pure hypercholesterolemia, unspecified; E78.0 - Pure hypercholesterolemia (5) Lacunar infarct, acute Code(s): I63.81 - OTHER CEREB INFRC DUE TO OCCLS OR STENOSIS OF SMALL ARTERY (6) Respiratory failure with hypercapnia Code(s): J96.92 - RESPIRATORY FAILURE, UNSPECIFIED WITH HYPERCAPNIA Qualifiers: Chronicity: acute on chronic Qualified Code(s): J96.22 - Acute and chronic respiratory failure with hypercapnia (7) Acute on chronic renal failure Code(s): N17.9 - ACUTE KIDNEY FAILURE, UNSPECIFIED; N18.9 - CHRONIC KIDNEY DISEASE, UNSPECIFIED Qualifiers: Chronic kidney disease stage: stage 3 (moderate) (8) COPD (chronic obstructive pulmonary disease) Code(s): J44.9 - CHRONIC OBSTRUCTIVE PULMONARY DISEASE, UNSPECIFIED Qualifiers: COPD type: unspecified COPD Qualified Code(s): J44.9 - Chronic obstructive pulmonary disease, unspecified (9) HTN (hypertension) Code(s): I10 - ESSENTIAL (PRIMARY) HYPERTENSION Qualifiers: Hypertension type: essential hypertension Qualified Code(s): I10 - Essential (primary) hypertension Assessment/Plan 05/2019 Brain MRI shows generalized volume loss and extensive periventricular chronic microvascular ischemic disease changes, chronic lacunar infarct in the left frontal lobe, centrum semiovale as well as in left and right thalamus, acute/subacute lacunar infarcts in the left occipital lobe, right parietal occipital junction, right and left frontal high convexity, no mass lesion or acute intracranial hemorrhage 07/19/2017 Normal biventricular size and fxn, mild MR, TR, AR, abnl LV compliance 10/26/2016 No ischemia, LVEF 66% 1. Anemia due to chronic GI bleeding probably accelerated by aspirin s/p pRBC transfusion 2. Acute on chronic hypoxemic and hypercapneic respiratory failure, suspect TRALI, TACO 3. LV diastolic dysfunction 4. COPD 5. 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 HTN/HCVD 7. Hyperlipidemia. 8. Acute on CKD, improved 9. Multiple lacunar strokes r/o PAF PLAN: 1. Empiric PPI, holding ASA and NSAIDs, IV iron repletion 2. Hold Lasix and losartan pending renal fxn stabilization 3. Continue Carvedilol 3.125 bid with uptitration as tolerated 4. Continue Lipitor 20 qhs 5. Observe off antibiotic per ID, DVT prophylaxis, BD, Singulair, O2 as needed 6. PT->SNF, thank you for consultative opportunity 7. No events on telemetry thus far, may benefit from prolonged arrhythmia monitoring as outpatient to r/o PAF Patient to follow-up with Dr. Cm Liu at [facility] upon D/C
--- NOTE | 2019-06-17 10:14 | CONSULT ---
Consult Consult Specialty:: Vascular Surgery - History of Present Illness History of Present Illness: 88 year old woman with known mild carotid stenosis admitted for treatment of acute on chronic anemia. Developed confusion in hospital. Repeat carotid Duplx shows stable stenosis of right ICA 50-69%. MRI of brain shows multiple lacunar infarcts. She has no history of major stroke or TIA. 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 Squamous cell cancer facial MOHs excision. Ectopic surgery. Bladder suspension surgery. 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 Uncoded 06/11/19 13:07 hyper - Home Medications Home Medications: Ambulatory Orders Aspirin [ASA -] 81 mg PO DAILY tab.chew 07/22/17 Atorvastatin Ca [Lipitor] 20 mg PO HS tablet 07/22/17 Carvedilol [Coreg -] 3.125 mg PO BID tablet 07/22/17 Melatonin 5 mg PO HS PRN tab 07/22/17 Losartan Potassium 50 mg PO DAILY 06/11/19 Furosemide [Lasix] 20 PO DAILY 06/12/19 Physical Exam Vital Signs: Vital Signs Temperature 98.5 F 06/17/19 07:57 Pulse Rate 84 01/29/20 07:57 Respiratory Rate 18 06/17/19 07:57 Blood Pressure 165/91 06/17/19 07:57 O2 Sat by Pulse Oximetry (%) 97 06/17/19 07:57 Constitutional: Yes: No Distress Eyes: Yes: WNL, EOM Intact HENT: Yes: WNL Neck: Yes: Supple Cardiovascular: Yes: Pulse Irregular Respiratory: Yes: Regular Gastrointestinal: Yes: Soft Edema: No Neurological: Yes: Alert, Oriented Labs: CBC, BMP 06/17/19 05:53 06/17/19 05:53 Imaging - Results Ultrasound: Image Reviewed (Plaques in both CA and ICA, right ICA stenosis moderate) Problem List - Problems (1) Carotid stenosis, bilateral Assessment/Plan: Asymptomatic stenosis of both carotids, right side more severe. There is no indication for further imaging or intervention at this time. Lacunar infarcts are not usually attributed to extracranial carotid disease. Code(s): I65.23 - OCCLUSION AND STENOSIS OF BILATERAL CAROTID ARTERIES
[2019-06-17] MEDS: PANTOPRAZOLE 40 MG TABLET PO SCH ×2 (10:30→21:55)
[2019-06-17] MEDS: DONEPEZIL HCL 5 MG TABLET (FP) PO SCH (10:30)
[2019-06-17] MEDS: CARVEDILOL 3.125 MG TABLET (FP) PO SCH ×2 (10:30→21:55)
--- NOTE | 2019-06-17 12:21 | PN ---
Progress Note, Physician History of Present Illness: Pt seen and examined at bedside. Stroud was removed and she tolerated voiding trial. - Current Medication List Current Medications: Active Medications Acetaminophen (Tylenol -) 650 mg PO Q6H PRN PRN Reason: PAIN LEVEL 4 - 6 Albuterol Sulfate (Ventolin 0.083% Nebulizer Soln -) 1 amp NEB Q6H PRN PRN Reason: SHORT OF BREATH/WHEEZING Atorvastatin Calcium (Lipitor -) 20 mg PO [facility] Last Admin: 06/16/19 22:22 Dose: 20 mg Carvedilol (Coreg -) 3.125 mg PO BID [facility] Last Admin: 06/17/19 10:30 Dose: 3.125 mg Diphenhydramine HCl (Benadryl Oral Solution -) 12.5 mg PO [facility] Last Admin: 06/16/19 22:23 Dose: 12.5 mg Donepezil HCl (Aricept -) 5 mg PO DAILY [facility] Last Admin: 06/17/19 10:30 Dose: 5 mg Levalbuterol HCl (Xopenex) 0.63 mg IH RTID [facility] Montelukast Sodium (Singulair -) 10 mg PO [facility] Last Admin: 06/16/19 22:22 Dose: 10 mg Pantoprazole Sodium (Protonix -) 40 mg PO BID [facility] Last Admin: 06/17/19 10:30 Dose: 40 mg - Objective Vital Signs: Vital Signs Temperature 98.5 F 06/17/19 07:57 Pulse Rate 84 06/17/19 07:57 Respiratory Rate 18 06/17/19 07:57 Blood Pressure 165/91 06/17/19 07:57 O2 Sat by Pulse Oximetry (%) 97 06/17/19 07:57 Constitutional: Yes: Calm Eyes: Yes: Conjunctiva Clear HENT: Yes: Atraumatic Cardiovascular: Yes: S1, S2 Respiratory: Yes: CTA Bilaterally Gastrointestinal: Yes: Normal Bowel Sounds, Soft Genitourinary: Yes: WNL Musculoskeletal: Yes: WNL Edema: No Neurological: Yes: Oriented Labs: CBC, BMP 06/17/19 05:53 06/17/19 05:53 INR, PTT INR 1.02 (0.83-1.09) 06/11/19 13:33 Problem List - Problems (1) Anemia Code(s): D64.9 - ANEMIA, UNSPECIFIED Qualifiers: Anemia type: iron deficiency Iron deficiency anemia type: chronic blood loss Qualified Code(s): D50.0 - Iron deficiency anemia secondary to blood loss (chronic) (2) CKD (chronic kidney disease) Code(s): N18.9 - CHRONIC KIDNEY DISEASE, UNSPECIFIED Qualifiers: Chronic kidney disease stage: stage 3 (moderate) Qualified Code(s): N18.3 - Chronic kidney disease, stage 3 (moderate) Assessment/Plan Current Medications Generic Name Dose Route Start Last Admin Trade Name Freq PRN Reason Stop Dose Admin Acetaminophen 650 mg 06/16/19 19:25 Tylenol - PO Q6H PRN PAIN LEVEL 4 - 6 Albuterol Sulfate 1 amp 06/16/19 19:38 Ventolin 0.083% Nebulizer Soln - NEB Q6H PRN SHORT OF BREATH/WHEEZING Atorvastatin Calcium 20 mg 06/16/19 22:00 06/16/19 22:22 Lipitor - PO 20 mg HS NICOLE Administration Carvedilol 3.125 mg 06/16/19 22:00 06/17/19 10:30 Coreg - PO 3.125 mg BID NICOLE Administration Diphenhydramine HCl 12.5 mg 06/16/19 22:00 06/16/19 22:23 Benadryl Oral Solution - PO 12.5 mg HS NICOLE Administration Donepezil HCl 5 mg 06/17/19 10:00 06/17/19 10:30 Aricept - PO 5 mg DAILY NICOLE Administration Levalbuterol HCl 0.63 mg 06/16/19 20:00 Xopenex IH RTID NICOLE Montelukast Sodium 10 mg 06/16/19 22:00 06/16/19 22:22 Singulair - PO 10 mg HS NICOLE Administration Pantoprazole Sodium 40 mg 06/16/19 22:00 06/17/19 10:30 Protonix - PO 40 mg BID NICOLE Administration Impression 1. dyspnea 2. CKD 3. CHF 4. hld 5. copd 6. HTN 7. anemia 8. renal cyst Plan - abner mccann - renal function at baseline - follow cyst as outp - discusses plan with her daughter (MANAGER INVENTORY CONTROL) - will follow PRN Dr Jarquin
--- NOTE | 2019-06-17 14:37 | PN ---
Progress Note (short form) - Note Progress Note: PULMONARY Denies shortness of breath, cough or wheezing. Transferred to telemetry after MRI showing acute lacunar infarcts. Vital Signs Period Temp Pulse Resp BP Sys/Goodrich Pulse Ox Last 24 Hr 97.2 F-98.8 F 77-88 18-20 132-165/58-91 95-97 Gen: NAD in chair Heart: RRR Lung: decreased breath sounds at the bases Abd: soft, nontender Ext: no edema CBC, BMP 06/17/19 05:53 06/17/19 05:53 Active Medications Acetaminophen (Tylenol -) 650 mg PO Q6H PRN PRN Reason: PAIN LEVEL 4 - 6 Albuterol Sulfate (Ventolin 0.083% Nebulizer Soln -) 1 amp NEB Q6H PRN PRN Reason: SHORT OF BREATH/WHEEZING Atorvastatin Calcium (Lipitor -) 20 mg PO HS [facility] Last Admin: 06/16/19 22:22 Dose: 20 mg Carvedilol (Coreg -) 3.125 mg PO BID [facility] Last Admin: 06/17/19 10:30 Dose: 3.125 mg Diphenhydramine HCl (Benadryl Oral Solution -) 12.5 mg PO HS [facility] Last Admin: 06/16/19 22:23 Dose: 12.5 mg Donepezil HCl (Aricept -) 5 mg PO DAILY [facility] Last Admin: 06/17/19 10:30 Dose: 5 mg Levalbuterol HCl (Xopenex) 0.63 mg IH RTID [facility] Montelukast Sodium (Singulair -) 10 mg PO HS [facility] Last Admin: 06/16/19 22:22 Dose: 10 mg Pantoprazole Sodium (Protonix -) 40 mg PO BID [facility] Last Admin: 06/17/19 10:30 Dose: 40 mg A/P Acute CVA likely embolic Anemia s/p PRBC transfusion Suspect TACO LV Distolic Dysfunction COPD Acute on Chronic Kidney Injury Hyperlipidemia - telemetry monitoring - ASA, statin - O2 as needed to keep SpO2 >90% - inhaled bronchodilators as needed - DVT prophylaxis
[2019-06-17] MEDS: MONTELUKAST NA 10 MG TABLET PO SCH (21:55)
[2019-06-17] MEDS: ATORVASTATIN CA 20 MG TABLET (FP) PO SCH (21:55)
[2019-06-17] MEDS: diphenhydrAMINE HCL 12.5 MG/5 ML UNIT-DOSE CUPS PO SCH (21:55)
--- NOTE | 2019-06-18 07:29 | DS ---
Physical Examination Vital Signs: Vital Signs Temperature 97.7 F 06/18/19 02:00 Pulse Rate 86 06/18/19 06:00 Respiratory Rate 20 06/18/19 06:00 Blood Pressure 140/63 06/18/19 06:00 O2 Sat by Pulse Oximetry (%) 97 06/17/19 07:57 Cardiovascular: Yes: S1, S2 Respiratory: Yes: Regular, CTA Bilaterally Gastrointestinal: Yes: Normal Bowel Sounds, Soft Neurological: Yes: Alert, Oriented Labs: CBC, BMP 06/17/19 05:53 06/17/19 05:53 Discharge Summary Problems reviewed: Yes Reason For Visit: ANEMIA Current Active Problems Anemia (Acute) Anemia due to gastrointestinal blood loss (Acute) Carotid stenosis, bilateral (Acute) Family history of colon cancer (Acute) HLD (hyperlipidemia) (Acute) Hiatal hernia (Acute) Lacunar infarct, acute (Acute) Occult blood in stools (Acute) Respiratory failure with hypercapnia (Acute) Sleep disturbance (Acute) Transfusion related acute lung injury (TRALI) (Acute) Hospital Course: - Problems (1) Anemia Assessment/Plan: -GI and Hematology on board -s/p 2U PRBC transfusion on admission -s/p Venofer infusion -Hg 9.4 -monitor Hg daily -transfuse for Hg <7.0 to avoid fluid overload -Anemia profile shows low Iron 12, normal TIBC, low Ferritin -after Venofer infusion iron levels increase from 12~77 -Pantoprazole BID -Stool OB neg Code(s): D64.9 - ANEMIA, UNSPECIFIED Qualifiers: Anemia type: iron deficiency Iron deficiency anemia type: chronic blood loss Qualified Code(s): D50.0 - Iron deficiency anemia secondary to blood loss (chronic) (2) CHF (congestive heart failure) Assessment/Plan: -1L fluid restriction -low Na diet -daily weights -strict I&Os Code(s): I50.9 - HEART FAILURE, UNSPECIFIED Qualifiers: (3) CKD (chronic kidney disease) Assessment/Plan: -BUN/Cr monitor -renal on board -monitor renal function daily -Renal US shows small bilateral renal simple cysts, complex left renal cyst 2.9x2.5cm with a thin septation Code(s): N18.9 - CHRONIC KIDNEY DISEASE, UNSPECIFIED Qualifiers: Chronic kidney disease stage: stage 3 (moderate) Qualified Code(s): N18.3 - Chronic kidney disease, stage 3 (moderate) (4) COPD (chronic obstructive pulmonary disease) Assessment/Plan: -Pulmonary on board -Montelukast HS -O2 via NC -keep SpO2 >90% -repeat CXR on 06/13/19 shows nodular intersitial infiltrates through both lungs -Bipap prn -bronchodilators -repeat CXR shows improvement, still large heart with bibasilar changes Code(s): J44.9 - CHRONIC OBSTRUCTIVE PULMONARY DISEASE, UNSPECIFIED Qualifiers: COPD type: unspecified COPD Qualified Code(s): J44.9 - Chronic obstructive pulmonary disease, unspecified (5) Lacunar infarct, acute Assessment/Plan: -telemetry -Cardiology consult -Head CT scan shows no evidence of acute ICH, edema, midline shift, mass effect or skull fracture, bilateral basal ganglia thalamic lacunar infarcts, supratentorial chronic moderate periventricular , subcortical white matter microangiopathic ischemic changes, gliosis, no evidence of hydrocephalus, no CT evidence of acute territorial ischemic changes -Brain MRI shows generalized volume loss and extensive periventricular chronic microvascular ischemic disease changes, chronic lacunar infarct in the left frontal lobe, centrum semiovale as well as in left and right thalamus, acute/ subacute lacunar infarcts in the left occipital lobe, right parietal occipital junction, right and left frontal high convexity, no mass lesion or acute intracranial hemorrhage -lipid panel -neuro checks q4h -Carotid US shows intimal thickening in right common carotid artery and small plaques distally, moderately to large plaque with calcification at the right common carotid bifurcation/bulbwith 50-69% stenosis, there are multiple moderate size plaques in the left common carotid artery without evidence of hemodynamically significant stenosis, moderate to large plaque at the left common carotid bifurcation/bulb without evidence of hemodynamically significant stenosis -Atorvastatin -PT Code(s): I63.81 - OTHER CEREB INFRC DUE TO OCCLS OR STENOSIS OF SMALL ARTERY (6) Respiratory failure with hypercapnia Assessment/Plan: -Pulmonary on board -Montelukast HS -O2 via NC -keep SpO2 >90% -repeat CXR on 06/13/19 shows nodular intersitial infiltrates through both lungs -repeat CXR shows improvement, still large heart with bibasilar changes -Bipap prn -bronchodilators Code(s): J96.92 - RESPIRATORY FAILURE, UNSPECIFIED WITH HYPERCAPNIA Condition: Stable - Instructions Diet, Activity, Other Instructions: monitor cbc/bmp q week consider asa if hgb remains stable Referrals: Jesus Puente MD [Primary Care Provider] - - Home Medications Comprehensive Discharge Medication List: Ambulatory Orders Atorvastatin Ca [Lipitor] 20 mg PO HS tablet 07/22/17 Carvedilol [Coreg -] 3.125 mg PO BID tablet 07/22/17 Melatonin 5 mg PO HS PRN tab 07/22/17 Acetaminophen [Tylenol .Regular Strength -] 650 mg PO Q6H PRN tablet 06/18/19 Albuterol 2.5/Ipratropium 0.5 [Duoneb -] 1 amp NEB RQID amp 06/18/19 Donepezil HCl [Aricept -] 5 mg PO DAILY tablet 06/18/19 Guaifenesin/D-Methorphan Hb [Diabetic Tussin Dm -] 10 ml PO Q6H ml 06/18/19 Montelukast Na [Singulair -] 10 mg PO HS tablet 06/18/19 Pantoprazole Sodium [Protonix -] 40 mg PO BID tablet.ec 06/18/19
[2019-06-18] MEDS: ALBUTEROL SO4 2.5/IPRATROPIUM 0.5 INH SOL 3 ML VIAL.NEB. NEB SCH ×4 (07:30→22:20)
[2019-06-18] MEDS: guaiFENesin/D-M SUGAR-FREE/ACLHOL-FREE 118 ML BOTTLE PO SCH ×3 (09:05→21:52)
[2019-06-18] MEDS: DONEPEZIL HCL 5 MG TABLET (FP) PO SCH (09:06)
[2019-06-18] MEDS: PANTOPRAZOLE 40 MG TABLET PO SCH ×2 (09:06→21:52)
[2019-06-18] MEDS: CARVEDILOL 3.125 MG TABLET (FP) PO SCH ×2 (09:06→21:52)
--- NOTE | 2019-06-18 10:06 | PN ---
Progress Note, Physician History of Present Illness: Denies fatigue, chest pain or dyspnea, Hgb stable. - Current Medication List Current Medications: Active Medications Acetaminophen (Tylenol -) 650 mg PO Q6H PRN PRN Reason: PAIN LEVEL 4 - 6 Albuterol Sulfate (Ventolin 0.083% Nebulizer Soln -) 1 amp NEB Q6H PRN PRN Reason: SHORT OF BREATH/WHEEZING Albuterol/Ipratropium (Duoneb -) 1 amp NEB RQID [facility] Atorvastatin Calcium (Lipitor -) 20 mg PO [facility] Last Admin: 06/17/19 21:55 Dose: 20 mg Carvedilol (Coreg -) 3.125 mg PO BID [facility] Last Admin: 06/18/19 09:06 Dose: 3.125 mg Diphenhydramine HCl (Benadryl Oral Solution -) 12.5 mg PO [facility] Last Admin: 06/17/19 21:55 Dose: 12.5 mg Donepezil HCl (Aricept -) 5 mg PO DAILY [facility] Last Admin: 06/18/19 09:06 Dose: 5 mg Guaifenesin (Diabetic Tussin Dm -) 10 ml PO Q6H [facility] Last Admin: 06/18/19 09:05 Dose: Not Given Levalbuterol HCl (Xopenex) 0.63 mg IH RTID [facility] Montelukast Sodium (Singulair -) 10 mg PO [facility] Last Admin: 06/17/19 21:55 Dose: 10 mg Pantoprazole Sodium (Protonix -) 40 mg PO BID [facility] Last Admin: 06/18/19 09:06 Dose: 40 mg - Objective Vital Signs: Vital Signs Temperature 98 F 06/18/19 09:44 Pulse Rate 90 06/18/19 09:44 Respiratory Rate 18 06/18/19 09:44 Blood Pressure 170/70 06/18/19 09:44 O2 Sat by Pulse Oximetry (%) 97 06/17/19 07:57 Constitutional: Yes: No Distress, Calm Neck: Yes: Supple Cardiovascular: Yes: Regular Rate and Rhythm Respiratory: Yes: Regular, Diminished, On Nasal O2 Gastrointestinal: Yes: Normal Bowel Sounds, Soft Edema: No Labs: CBC, BMP 06/17/19 05:53 06/17/19 05:53 INR, PTT INR 1.02 (0.83-1.09) 06/11/19 13:33 - ....Imaging EKG: Report Reviewed (Tele: NSR no PAF) Problem List - Problems (1) Transfusion related acute lung injury (TRALI) Code(s): J95.84 - TRANSFUSION-RELATED ACUTE LUNG INJURY (TRALI) (2) Anemia due to gastrointestinal blood loss Code(s): D50.0 - IRON DEFICIENCY ANEMIA SECONDARY TO BLOOD LOSS (CHRONIC) (3) Carotid stenosis, bilateral Code(s): I65.23 - OCCLUSION AND STENOSIS OF BILATERAL CAROTID ARTERIES (4) HLD (hyperlipidemia) Code(s): E78.5 - HYPERLIPIDEMIA, UNSPECIFIED Qualifiers: Hyperlipidemia type: pure hypercholesterolemia Qualified Code(s): E78.00 - Pure hypercholesterolemia, unspecified; E78.0 - Pure hypercholesterolemia (5) Lacunar infarct, acute Code(s): I63.81 - OTHER CEREB INFRC DUE TO OCCLS OR STENOSIS OF SMALL ARTERY (6) Respiratory failure with hypercapnia Code(s): J96.92 - RESPIRATORY FAILURE, UNSPECIFIED WITH HYPERCAPNIA Qualifiers: Chronicity: acute on chronic Qualified Code(s): J96.22 - Acute and chronic respiratory failure with hypercapnia (7) Acute on chronic renal failure Code(s): N17.9 - ACUTE KIDNEY FAILURE, UNSPECIFIED; N18.9 - CHRONIC KIDNEY DISEASE, UNSPECIFIED Qualifiers: Chronic kidney disease stage: stage 3 (moderate) (8) COPD (chronic obstructive pulmonary disease) Code(s): J44.9 - CHRONIC OBSTRUCTIVE PULMONARY DISEASE, UNSPECIFIED Qualifiers: COPD type: unspecified COPD Qualified Code(s): J44.9 - Chronic obstructive pulmonary disease, unspecified (9) HTN (hypertension) Code(s): I10 - ESSENTIAL (PRIMARY) HYPERTENSION Qualifiers: Hypertension type: essential hypertension Qualified Code(s): I10 - Essential (primary) hypertension Assessment/Plan 05/2019 Brain MRI shows generalized volume loss and extensive periventricular chronic microvascular ischemic disease changes, chronic lacunar infarct in the left frontal lobe, centrum semiovale as well as in left and right thalamus, acute/subacute lacunar infarcts in the left occipital lobe, right parietal occipital junction, right and left frontal high convexity, no mass lesion or acute intracranial hemorrhage 07/19/2017 Normal biventricular size and fxn, mild MR, TR, AR, abnl LV compliance 10/26/2016 No ischemia, LVEF 66% 1. Anemia due to chronic GI bleeding probably accelerated by aspirin s/p pRBC transfusion 2. Acute on chronic hypoxemic and hypercapneic respiratory failure, suspect TRALI, TACO 3. LV diastolic dysfunction 4. COPD 5. 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 HTN/HCVD 7. Hyperlipidemia. 8. Acute on CKD, improved 9. Multiple lacunar strokes r/o PAF PLAN: 1. Empiric PPI, holding ASA and NSAIDs, IV iron repletion 2. Hold Lasix and losartan pending renal fxn stabilization 3. Continue Carvedilol 3.125 bid with uptitration as tolerated 4. Continue Lipitor 20 qhs 5. Observe off antibiotic per ID, DVT prophylaxis, BD, Singulair, O2 as needed 6. PT->SNF, thank you for consultative opportunity 7. No events on telemetry thus far, may benefit from prolonged arrhythmia monitoring as outpatient to r/o PAF Patient to follow-up with Dr. Cm Liu at [facility] upon D/C
[2019-06-18] MEDS ORDERED: FUROSEMIDE 40 MG/4 ML INJECTABLE VIAL IVPUSH ONE (11:51)
--- NOTE | 2019-06-18 11:51 | PN ---
Progress Note (short form) - Note Progress Note: PULMONARY More short of breath and congested today. CXR showing some congestion with small right effusion. Vital Signs Period Temp Pulse Resp BP Sys/Goodrich Pulse Ox Last 24 Hr 97.7 F-98.2 F 74-90 18-20 132-170/63-80 Gen: NAD in chair Heart: RRR Lung: decreased breath sounds at the bases Abd: soft, nontender Ext: no edema CBC, BMP 06/17/19 05:53 Active Medications Acetaminophen (Tylenol -) 650 mg PO Q6H PRN PRN Reason: PAIN LEVEL 4 - 6 Albuterol Sulfate (Ventolin 0.083% Nebulizer Soln -) 1 amp NEB Q6H PRN PRN Reason: SHORT OF BREATH/WHEEZING Albuterol/Ipratropium (Duoneb -) 1 amp NEB RQID [facility] Atorvastatin Calcium (Lipitor -) 20 mg PO HS [facility] Last Admin: 06/17/19 21:55 Dose: 20 mg Carvedilol (Coreg -) 3.125 mg PO BID [facility] Last Admin: 06/18/19 09:06 Dose: 3.125 mg Diphenhydramine HCl (Benadryl Oral Solution -) 12.5 mg PO [facility] Last Admin: 06/17/19 21:55 Dose: 12.5 mg Donepezil HCl (Aricept -) 5 mg PO DAILY [facility] Last Admin: 06/18/19 09:06 Dose: 5 mg Guaifenesin (Diabetic Tussin Dm -) 10 ml PO Q6H [facility] Last Admin: 06/18/19 09:05 Dose: Not Given Levalbuterol HCl (Xopenex) 0.63 mg IH RTID [facility] Montelukast Sodium (Singulair -) 10 mg PO [facility] Last Admin: 06/17/19 21:55 Dose: 10 mg Pantoprazole Sodium (Protonix -) 40 mg PO BID [facility] Last Admin: 06/18/19 09:06 Dose: 40 mg A/P Acute CVA likely embolic Anemia s/p PRBC transfusion Suspect TACO LV Distolic Dysfunction COPD Acute on Chronic Kidney Injury Hyperlipidemia - lasix today - monitor urine output, creatinine - telemetry monitoring - ASA, statin - O2 as needed to keep SpO2 >90% - inhaled bronchodilators as needed - DVT prophylaxis
[2019-06-18 11:55] LABS: BASO % 0.6 % (0-2.0); HEMATOCRIT 30.9 % (32.4-45.2); HEMOGLOBIN 9.5 GM/dL (10.7-15.3); LYMPH % 4.1 % (8-40); MCH 26.3 pg (25.7-33.7); MCHC 30.8 g/dl (32.0-36.0); MEAN CELL VOLUME 85.4 fl (80-96); MEAN PLT VOLUME 8.8 fl (7.5-11.1); NEUT % 84.3 % (42.8-82.8); PLATELET COUNT 363 K/MM3 (134-434); RBC 3.62 M/mm3 (3.60-5.2); RDW 22.4 % (11.6-15.6)
[2019-06-18] MEDS ORDERED: PT OWN MED DRAWER 7, Y5N ONE (12:55)
--- NOTE | 2019-06-18 14:02 | PN ---
Progress Note, Physician History of Present Illness: Pt seen and examined at bedside. She had shortness of breath and was given a dose of lasix. - Current Medication List Current Medications: Active Medications Acetaminophen (Tylenol -) 650 mg PO Q6H PRN PRN Reason: PAIN LEVEL 4 - 6 Albuterol Sulfate (Ventolin 0.083% Nebulizer Soln -) 1 amp NEB Q6H PRN PRN Reason: SHORT OF BREATH/WHEEZING Albuterol/Ipratropium (Duoneb -) 1 amp NEB RQID [facility] Atorvastatin Calcium (Lipitor -) 20 mg PO [facility] Last Admin: 06/17/19 21:55 Dose: 20 mg Carvedilol (Coreg -) 3.125 mg PO BID [facility] Last Admin: 06/18/19 09:06 Dose: 3.125 mg Diphenhydramine HCl (Benadryl Oral Solution -) 12.5 mg PO [facility] Last Admin: 06/17/19 21:55 Dose: 12.5 mg Donepezil HCl (Aricept -) 5 mg PO DAILY [facility] Last Admin: 06/18/19 09:06 Dose: 5 mg Guaifenesin (Diabetic Tussin Dm -) 10 ml PO Q6H [facility] Last Admin: 06/18/19 09:05 Dose: Not Given Levalbuterol HCl (Xopenex) 0.63 mg IH RTID [facility] Montelukast Sodium (Singulair -) 10 mg PO [facility] Last Admin: 06/17/19 21:55 Dose: 10 mg Pantoprazole Sodium (Protonix -) 40 mg PO BID [facility] Last Admin: 06/18/19 09:06 Dose: 40 mg - Objective Vital Signs: Vital Signs Temperature 98 F 06/18/19 09:44 Pulse Rate 90 06/18/19 09:44 Respiratory Rate 18 06/18/19 09:44 Blood Pressure 170/70 06/18/19 09:44 O2 Sat by Pulse Oximetry (%) 97 06/17/19 07:57 Constitutional: Yes: Calm Eyes: Yes: Conjunctiva Clear HENT: Yes: Atraumatic Neck: Yes: Supple Cardiovascular: Yes: S1, S2 Respiratory: Yes: CTA Bilaterally Gastrointestinal: Yes: Normal Bowel Sounds, Soft Genitourinary: Yes: WNL Musculoskeletal: Yes: WNL Edema: Yes Edema: LLE: Trace, RLE: Trace Neurological: Yes: Oriented Psychiatric: Yes: Oriented Labs: CBC, BMP 06/18/19 11:25 06/17/19 05:53 INR, PTT INR 1.02 (0.83-1.09) 06/11/19 13:33 Problem List - Problems (1) Anemia Code(s): D64.9 - ANEMIA, UNSPECIFIED Qualifiers: Anemia type: iron deficiency Iron deficiency anemia type: chronic blood loss Qualified Code(s): D50.0 - Iron deficiency anemia secondary to blood loss (chronic) (2) CKD (chronic kidney disease) Code(s): N18.9 - CHRONIC KIDNEY DISEASE, UNSPECIFIED Qualifiers: Chronic kidney disease stage: stage 3 (moderate) Qualified Code(s): N18.3 - Chronic kidney disease, stage 3 (moderate) Assessment/Plan Current Medications Generic Name Dose Route Start Last Admin Trade Name Freq PRN Reason Stop Dose Admin Acetaminophen 650 mg 06/16/19 19:25 Tylenol - PO Q6H PRN PAIN LEVEL 4 - 6 Albuterol Sulfate 1 amp 06/16/19 19:38 Ventolin 0.083% Nebulizer Soln - NEB Q6H PRN SHORT OF BREATH/WHEEZING Albuterol/Ipratropium 1 amp 06/18/19 08:00 Duoneb - NEB RQID [facility] Atorvastatin Calcium 20 mg 06/16/19 22:00 06/17/19 21:55 Lipitor - PO 20 mg HS [facility] Administration Carvedilol 3.125 mg 06/16/19 22:00 06/18/19 09:06 Coreg - PO 3.125 mg BID [facility] Administration Diphenhydramine HCl 12.5 mg 06/16/19 22:00 06/17/19 21:55 Benadryl Oral Solution - PO 12.5 mg HS [facility] Administration Donepezil HCl 5 mg 06/17/19 10:00 06/18/19 09:06 Aricept - PO 5 mg DAILY [facility] Administration Guaifenesin 10 ml 06/18/19 07:30 06/18/19 09:05 Diabetic Tussin Dm - PO Not Given Q6H [facility] Levalbuterol HCl 0.63 mg 06/16/19 20:00 Xopenex IH RTID [facility] Montelukast Sodium 10 mg 06/16/19 22:00 06/17/19 21:55 Singulair - PO 10 mg HS [facility] Administration Pantoprazole Sodium 40 mg 06/16/19 22:00 06/18/19 09:06 Protonix - PO 40 mg BID [facility] Administration Impression 1. dyspnea 2. CKD 3. CHF 4. hld 5. copd 6. HTN 7. anemia 8. renal cyst 9. pleural effusion Plan - agree with dose of lasix - monitor volume status - pulm input appreciated - small effusion on cxr - repeat labs in am Dr Jarquin
[2019-06-18 15:15] LABS: ANISOCYTOSIS 1+; MACROCYTOSIS 0; OVALOCYTE 1+; PLATELET ESTIMATE NORMAL; TEAR DROP CELLS 1+
[2019-06-18 16:59] VITALS: BMI 24.4
[2019-06-18] MEDS: ATORVASTATIN CA 20 MG TABLET (FP) PO SCH (21:52)
[2019-06-18] MEDS: MONTELUKAST NA 10 MG TABLET PO SCH (21:52)
[2019-06-18] MEDS: diphenhydrAMINE HCL 12.5 MG/5 ML UNIT-DOSE CUPS PO SCH (21:52)
[2019-06-19] MEDS: guaiFENesin/D-M SUGAR-FREE/ACLHOL-FREE 118 ML BOTTLE PO SCH ×2 (04:31→09:45)
[2019-06-19] MEDS: ALBUTEROL SO4 2.5/IPRATROPIUM 0.5 INH SOL 3 ML VIAL.NEB. NEB SCH ×2 (08:00→11:29)
[2019-06-19 08:06] LABS: ALBUMIN 2.5 g/dl (3.4-5.0); BILIRUBIN,TOTAL 0.7 mg/dL (0.2-1); BLOOD UREA NITROGEN 31.3 mg/dL (7-18); CREATININE 1.5 mg/dL (0.55-1.3); POTASSIUM 3.8 mmol/L (3.5-5.1); TOT PROT 5.2 g/dl (6.4-8.2)
--- NOTE | 2019-06-19 08:24 | DS ---
Physical Examination Vital Signs: Vital Signs Temperature 97.7 F 06/19/19 02:00 Pulse Rate 74 06/19/19 06:00 Respiratory Rate 20 06/19/19 06:00 Blood Pressure 133/61 06/19/19 06:00 O2 Sat by Pulse Oximetry (%) 95 06/18/19 20:36 Labs: CBC, BMP 06/18/19 11:25 06/19/19 06:10 Discharge Summary Problems reviewed: Yes Reason For Visit: ANEMIA Current Active Problems Anemia (Acute) Anemia due to gastrointestinal blood loss (Acute) Carotid stenosis, bilateral (Acute) Family history of colon cancer (Acute) HLD (hyperlipidemia) (Acute) Hiatal hernia (Acute) Lacunar infarct, acute (Acute) Occult blood in stools (Acute) Respiratory failure with hypercapnia (Acute) Sleep disturbance (Acute) Transfusion related acute lung injury (TRALI) (Acute) Hospital Course: - Problems (1) Anemia Assessment/Plan: -GI and Hematology on board -s/p 2U PRBC transfusion on admission -s/p Venofer infusion -Hg 9.4 -monitor Hg daily -transfuse for Hg <7.0 to avoid fluid overload -Anemia profile shows low Iron 12, normal TIBC, low Ferritin -after Venofer infusion iron levels increase from 12~77 -Pantoprazole BID -Stool OB neg Code(s): D64.9 - ANEMIA, UNSPECIFIED Qualifiers: Anemia type: iron deficiency Iron deficiency anemia type: chronic blood loss Qualified Code(s): D50.0 - Iron deficiency anemia secondary to blood loss (chronic) (2) CHF (congestive heart failure) Assessment/Plan: -1L fluid restriction -low Na diet -daily weights -strict I&Os Code(s): I50.9 - HEART FAILURE, UNSPECIFIED Qualifiers: (3) CKD (chronic kidney disease) Assessment/Plan: -BUN/Cr monitor -renal on board -monitor renal function daily -Renal US shows small bilateral renal simple cysts, complex left renal cyst 2.9x2.5cm with a thin septation Code(s): N18.9 - CHRONIC KIDNEY DISEASE, UNSPECIFIED Qualifiers: Chronic kidney disease stage: stage 3 (moderate) Qualified Code(s): N18.3 - Chronic kidney disease, stage 3 (moderate) (4) COPD (chronic obstructive pulmonary disease) Assessment/Plan: -Pulmonary on board -Montelukast HS -O2 via NC -keep SpO2 >90% -repeat CXR on 06/13/19 shows nodular intersitial infiltrates through both lungs -Bipap prn -bronchodilators -repeat CXR shows improvement, still large heart with bibasilar changes Code(s): J44.9 - CHRONIC OBSTRUCTIVE PULMONARY DISEASE, UNSPECIFIED Qualifiers: COPD type: unspecified COPD Qualified Code(s): J44.9 - Chronic obstructive pulmonary disease, unspecified (5) Lacunar infarct, acute Assessment/Plan: -telemetry -Cardiology consult -Head CT scan shows no evidence of acute ICH, edema, midline shift, mass effect or skull fracture, bilateral basal ganglia thalamic lacunar infarcts, supratentorial chronic moderate periventricular , subcortical white matter microangiopathic ischemic changes, gliosis, no evidence of hydrocephalus, no CT evidence of acute territorial ischemic changes -Brain MRI shows generalized volume loss and extensive periventricular chronic microvascular ischemic disease changes, chronic lacunar infarct in the left frontal lobe, centrum semiovale as well as in left and right thalamus, acute/ subacute lacunar infarcts in the left occipital lobe, right parietal occipital junction, right and left frontal high convexity, no mass lesion or acute intracranial hemorrhage -lipid panel -neuro checks q4h -Carotid US shows intimal thickening in right common carotid artery and small plaques distally, moderately to large plaque with calcification at the right common carotid bifurcation/bulbwith 50-69% stenosis, there are multiple moderate size plaques in the left common carotid artery without evidence of hemodynamically significant stenosis, moderate to large plaque at the left common carotid bifurcation/bulb without evidence of hemodynamically significant stenosis -Atorvastatin -PT Code(s): I63.81 - OTHER CEREB INFRC DUE TO OCCLS OR STENOSIS OF SMALL ARTERY (6) Respiratory failure with hypercapnia Assessment/Plan: -Pulmonary on board -Montelukast HS -O2 via NC -keep SpO2 >90% -repeat CXR on 06/13/19 shows nodular intersitial infiltrates through both lungs -repeat CXR shows improvement, still large heart with bibasilar changes -Bipap prn -bronchodilators Code(s): J96.92 - RESPIRATORY FAILURE, UNSPECIFIED WITH HYPERCAPNIA Condition: Stable - Instructions Diet, Activity, Other Instructions: monitor cbc/bmp q week consider asa if hgb remains stable monitor potasium my need supplement with lasix Referrals: Jesus Puente MD [Primary Care Provider] - - Home Medications Comprehensive Discharge Medication List: Ambulatory Orders Atorvastatin Ca [Lipitor] 20 mg PO HS tablet 07/22/17 Carvedilol [Coreg -] 3.125 mg PO BID tablet 07/22/17 Melatonin 5 mg PO HS PRN tab 07/22/17 Acetaminophen [Tylenol .Regular Strength -] 650 mg PO Q6H PRN tablet 06/18/19 Albuterol 2.5/Ipratropium 0.5 [Duoneb -] 1 amp NEB RQID amp 06/18/19 Donepezil HCl [Aricept -] 5 mg PO DAILY tablet 06/18/19 Guaifenesin/D-Methorphan Hb [Diabetic Tussin Dm -] 10 ml PO Q6H ml 06/18/19 Montelukast Na [Singulair -] 10 mg PO HS tablet 06/18/19 Pantoprazole Sodium [Protonix -] 40 mg PO BID tablet.ec 06/18/19 Furosemide [Lasix -] 40 mg PO DAILY tablet 06/19/19 Potassium Chloride [K-Dur -] 10 meq PO DAILY tablet.er 06/19/19
[2019-06-19] MEDS ORDERED: PT OWN MED DRAWER 7, Y5N ONE (09:33)
[2019-06-19] MEDS: PANTOPRAZOLE 40 MG TABLET PO SCH (09:41)
[2019-06-19] MEDS: CARVEDILOL 3.125 MG TABLET (FP) PO SCH (09:42)
[2019-06-19] MEDS: DONEPEZIL HCL 5 MG TABLET (FP) PO SCH (09:42)
[2019-06-19] MEDS ORDERED: FUROSEMIDE 40 MG TABLET (FP) PO SCH (10:00)
[2019-06-19] MEDS ORDERED: POTASSIUM CHLORIDE TABS 10 MEQ TABLET.ER (FP) PO SCH (10:00)
--- NOTE | 2019-06-19 10:01 | PN ---
Progress Note, Physician History of Present Illness: Denies fatigue, chest pain or dyspnea, Hgb stable, sitting in chair. Lasix resumed for bilateral effusions R>L. - Current Medication List Current Medications: Active Medications Acetaminophen (Tylenol -) 650 mg PO Q6H PRN PRN Reason: PAIN LEVEL 4 - 6 Albuterol Sulfate (Ventolin 0.083% Nebulizer Soln -) 1 amp NEB Q6H PRN PRN Reason: SHORT OF BREATH/WHEEZING Albuterol/Ipratropium (Duoneb -) 1 amp NEB RQID [facility] Last Admin: 06/19/19 08:00 Dose: 1 amp Atorvastatin Calcium (Lipitor -) 20 mg PO HS [facility] Last Admin: 06/18/19 21:52 Dose: 20 mg Carvedilol (Coreg -) 3.125 mg PO BID [facility] Last Admin: 06/19/19 09:42 Dose: 3.125 mg Diphenhydramine HCl (Benadryl Oral Solution -) 12.5 mg PO HS [facility] Last Admin: 06/18/19 21:52 Dose: 12.5 mg Donepezil HCl (Aricept -) 5 mg PO DAILY [facility] Last Admin: 06/19/19 09:42 Dose: 5 mg Furosemide (Lasix -) 40 mg PO DAILY [facility] Last Admin: 06/19/19 09:42 Dose: 40 mg Guaifenesin (Diabetic Tussin Dm -) 10 ml PO Q6H [facility] Last Admin: 06/19/19 09:45 Dose: Not Given Levalbuterol HCl (Xopenex) 0.63 mg IH RTID [facility] Montelukast Sodium (Singulair -) 10 mg PO [facility] Last Admin: 06/18/19 21:52 Dose: 10 mg Pantoprazole Sodium (Protonix -) 40 mg PO BID [facility] Last Admin: 06/19/19 09:41 Dose: 40 mg Potassium Chloride (K-Dur -) 10 meq PO DAILY [facility] Last Admin: 06/19/19 09:42 Dose: 10 meq - Objective Vital Signs: Vital Signs Temperature 97.7 F 06/19/19 02:00 Pulse Rate 74 06/19/19 06:00 Respiratory Rate 20 06/19/19 06:00 Blood Pressure 133/61 06/19/19 06:00 O2 Sat by Pulse Oximetry (%) 95 06/18/19 20:36 Constitutional: Yes: No Distress, Calm Neck: Yes: Supple Cardiovascular: Yes: Regular Rate and Rhythm Respiratory: Yes: Regular, CTA Bilaterally Gastrointestinal: Yes: Normal Bowel Sounds, Soft Edema: No Labs: CBC, BMP 06/18/19 11:25 06/19/19 06:10 INR, PTT INR 1.02 (0.83-1.09) 06/11/19 13:33 - ....Imaging Chest X-ray: Report Reviewed (Bilateral effusions R>L) EKG: Report Reviewed (Tele: episode nonsustained VT) Problem List - Problems (1) Transfusion related acute lung injury (TRALI) Code(s): J95.84 - TRANSFUSION-RELATED ACUTE LUNG INJURY (TRALI) (2) Anemia due to gastrointestinal blood loss Code(s): D50.0 - IRON DEFICIENCY ANEMIA SECONDARY TO BLOOD LOSS (CHRONIC) (3) Carotid stenosis, bilateral Code(s): I65.23 - OCCLUSION AND STENOSIS OF BILATERAL CAROTID ARTERIES (4) HLD (hyperlipidemia) Code(s): E78.5 - HYPERLIPIDEMIA, UNSPECIFIED Qualifiers: Hyperlipidemia type: pure hypercholesterolemia Qualified Code(s): E78.00 - Pure hypercholesterolemia, unspecified; E78.0 - Pure hypercholesterolemia (5) Lacunar infarct, acute Code(s): I63.81 - OTHER CEREB INFRC DUE TO OCCLS OR STENOSIS OF SMALL ARTERY (6) Respiratory failure with hypercapnia Code(s): J96.92 - RESPIRATORY FAILURE, UNSPECIFIED WITH HYPERCAPNIA Qualifiers: Chronicity: acute on chronic Qualified Code(s): J96.22 - Acute and chronic respiratory failure with hypercapnia (7) Acute on chronic renal failure Code(s): N17.9 - ACUTE KIDNEY FAILURE, UNSPECIFIED; N18.9 - CHRONIC KIDNEY DISEASE, UNSPECIFIED Qualifiers: Chronic kidney disease stage: stage 3 (moderate) (8) COPD (chronic obstructive pulmonary disease) Code(s): J44.9 - CHRONIC OBSTRUCTIVE PULMONARY DISEASE, UNSPECIFIED Qualifiers: COPD type: unspecified COPD Qualified Code(s): J44.9 - Chronic obstructive pulmonary disease, unspecified (9) HTN (hypertension) Code(s): I10 - ESSENTIAL (PRIMARY) HYPERTENSION Qualifiers: Hypertension type: essential hypertension Qualified Code(s): I10 - Essential (primary) hypertension Assessment/Plan 05/2019 Brain MRI shows generalized volume loss and extensive periventricular chronic microvascular ischemic disease changes, chronic lacunar infarct in the left frontal lobe, centrum semiovale as well as in left and right thalamus, acute/subacute lacunar infarcts in the left occipital lobe, right parietal occipital junction, right and left frontal high convexity, no mass lesion or acute intracranial hemorrhage 07/19/2017 Normal biventricular size and fxn, mild MR, TR, AR, abnl LV compliance 10/26/2016 No ischemia, LVEF 66% 1. Anemia due to chronic GI bleeding probably accelerated by aspirin s/p pRBC transfusion 2. Acute on chronic hypoxemic and hypercapneic respiratory failure, suspect TRALI, TACO 3. LV diastolic dysfunction 4. COPD 5. 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 HTN/HCVD 7. Hyperlipidemia. 8. Acute on CKD, improved 9. Multiple lacunar strokes r/o PAF PLAN: 1. Empiric PPI, holding ASA and NSAIDs, IV iron repletion 2. Resumed Lasix 40 qd and losartan 25 qd given renal fxn stabilization 3. Increase Carvedilol 6.25 bid with uptitration as tolerated 4. Continue Lipitor 20 qhs 5. Observe off antibiotic per ID, DVT prophylaxis, BD, Singulair, O2 as needed 6. PT->SNF 7. May benefit from prolonged arrhythmia monitoring as outpatient to r/o PAF Patient to follow-up with Dr. Cm Liu at [facility] upon D/C
[2019-06-19 11:01] VITALS: BP 118/54; PULSE 93; TEMP 98.8
[2019-06-19] MEDS ORDERED: CIPROFLOXACIN 250 MG TABLET (RESTRICTED TO ID) PO SCH (13:15)
[2019-06-19] MEDS ORDERED: CARVEDILOL 6.25 MG TABLET (FP) PO SCH (22:00)
== END 2019-06-19 11:45 | DRG 811 ==
LOC: JER 12:52 → JERBED 14:45 → J7W 23:37 → J4W 06-16 17:12
PROVIDERS: ADMIT Family Medicine; ATTEND Family Medicine
PROC: 30233N1 Transfusion of Nonautologous Red Blood Cells into Peripheral Vein, Percutaneous Approach (ICD-10-PCS; principal; 2019-06-11)
DX: D50.0 Iron deficiency anemia secondary to blood loss (chronic) (principal); G93.41 Metabolic encephalopathy; I63.81 Other cerebral infarction due to occlusion or stenosis of small artery; J96.21 Acute and chronic respiratory failure with hypoxia; J96.22 Acute and chronic respiratory failure with hypercapnia; I13.0 Hypertensive heart and chronic kidney disease with heart failure and stage 1 through stage 4 chronic kidney disease, or unspecified chronic kidney disease; N17.9 Acute kidney failure, unspecified; I42.0 Dilated cardiomyopathy; N39.0 Urinary tract infection, site not specified; F05 Delirium due to known physiological condition; J90 Pleural effusion, not elsewhere classified; J44.9 Chronic obstructive pulmonary disease, unspecified; I10 Essential (primary) hypertension; I48.0 Paroxysmal atrial fibrillation; E78.5 Hyperlipidemia, unspecified; I65.23 Occlusion and stenosis of bilateral carotid arteries; K44.9 Diaphragmatic hernia without obstruction or gangrene; F41.8 Other specified anxiety disorders; N28.89 Other specified disorders of kidney and ureter; N18.3 Chronic kidney disease, stage 3 (moderate); I50.9 Heart failure, unspecified; N28.1 Cyst of kidney, acquired; I25.10 Atherosclerotic heart disease of native coronary artery without angina pectoris; M81.0 Age-related osteoporosis without current pathological fracture; D72.829 Elevated white blood cell count, unspecified; D63.8 Anemia in other chronic diseases classified elsewhere; R91.1 Solitary pulmonary nodule; K57.90 Diverticulosis of intestine, part unspecified, without perforation or abscess without bleeding; R19.5 Other fecal abnormalities; I34.0 Nonrheumatic mitral (valve) insufficiency; G47.9 Sleep disorder, unspecified; B96.1 Klebsiella pneumoniae [K. pneumoniae] as the cause of diseases classified elsewhere; E87.71 Transfusion associated circulatory overload; Z80.0 Family history of malignant neoplasm of digestive organs
CPT/HCPCS: 36415; 36430; 36600; 70450-TC; 70551-TC; 71045-TC-FY; 76775-TC; 80048; 80053; 80061; 81003; 82272; 82607; 82728; 82746; 82747; 82803; 82962; 83010; 83516; 83540; 83550; 83615; 83721; 83735; 83880; 84155; 84165; 84443; 85014; 85025; 85027; 85044; 85610; 85651; 85730; 86140; 86850; 86900; 86901; 86922; 87086; 87186; 93005; 93010; 93880-TC; 94640; 94660; 97116-GP; 97161-GP; 99285-25; J1756; P9058